=== PATIENT | male | born 1945 | race Caucasian/White ===

== ENCOUNTER → 2023-09-01 10:00 | Outpatient (REF) | payer OTHER, SELFPAY | LOC: RAD 10:00 | PROVIDERS: ATTENDING PHYSICIAN Surgery Vascular Surgery | DX: I73.9 Peripheral vascular disease, unspecified (principal); I65.23 Occlusion and stenosis of bilateral carotid arteries | CPT/HCPCS: 93880; 93922; 93925 ==

== ENCOUNTER → 2023-10-30 09:38 | Outpatient (REF) | payer OTHER, SELFPAY | LOC: DHCBS HW 09:38 | PROVIDERS: ATTENDING PHYSICIAN Nuclear Medicine Nuclear Cardiology; FAMILY PHYSICIAN Family Medicine | DX: I25.10 Atherosclerotic heart disease of native coronary artery without angina pectoris (principal) | CPT/HCPCS: 93306 ==

== ENCOUNTER → 2024-03-25 08:15 | Outpatient (REF) | payer OTHER, SELFPAY | LOC: RAD 08:15 | PROVIDERS: ATTENDING PHYSICIAN Surgery Vascular Surgery; FAMILY PHYSICIAN Family Medicine; REFERRING PHYSICIAN Nuclear Medicine Nuclear Cardiology | DX: I65.29 Occlusion and stenosis of unspecified carotid artery (principal); I73.9 Peripheral vascular disease, unspecified | CPT/HCPCS: 93880; 93922 ==

== ENCOUNTER 2024-05-14 08:09 | Outpatient (RCR) | payer OTHER, SELFPAY ==
[2024-05-14 08:15] VITALS: BP 113/38
[2024-05-14] MEDS: SODIUM BICARBONATE 1150 MEQ IV (08:35)
== END 2024-06-05 23:59 | disposition home or self-care (01) ==
LOC: OID 08:09
PROVIDERS: ATTENDING PHYSICIAN Surgery Vascular Surgery; FAMILY PHYSICIAN Family Medicine
DX: I73.9 Peripheral vascular disease, unspecified (principal); I65.23 Occlusion and stenosis of bilateral carotid arteries
CPT/HCPCS: 75635; 96365; 96366; Q9967

== ENCOUNTER → 2024-06-28 08:20 | Outpatient (REF) | payer OTHER, SELFPAY | LOC: DHCBC/DCA 08:20 | PROVIDERS: ATTENDING PHYSICIAN Nuclear Medicine Nuclear Cardiology; FAMILY PHYSICIAN Family Medicine | DX: I25.10 Atherosclerotic heart disease of native coronary artery without angina pectoris (principal); I10 Essential (primary) hypertension | CPT/HCPCS: 78452; 93017; A9500; J2785 ==

== ENCOUNTER 2024-07-13 09:56 | Inpatient (IN) | payer OTHER, SELFPAY ==
[2024-07-09 10:30] VITALS: BMI 22.0
[2024-07-09 11:04] LABS: % Basophils 0.2 % (0-2); % Eosinophils 4.1 % (0-6); % Immature Granulocytes 0.5 % (0-0.5); % Lymphocytes 10.3 % (20.5-51.1); % Monocytes 4.9 % (1.7-9.3); Absolute Eosinophils 0.3 10^3/uL (0-0.7); Absolute Lymphocytes 0.6 10^3/uL (1.2-3.4); Absolute Monocytes 0.3 10^3/uL (0.1-0.6); Absolute Neutrophils 4.9 10^3/uL (1.4-6.5); Hematocrit 28.9 % (39.0-52.0); Hemoglobin 9.8 g/dL (13.0-18.0); Mean Corp Hgb Conc. 33.9 g/dL (33.0-37.0); Mean Corpuscular Hgb 30.9 pg (27.0-31.0); Mean Corpuscular Volume 91.2 fL (80.0-94.0); Mean Platelet Volume 9.7 fL (7.4-10.4); Nucleated Red Blood Cells % 0 % (-); Platelet Count 151 10^3/uL (130-400); Red Blood Cell Count 3.17 10^6/uL (4.70-6.10); Red Cell Dist. Width 13.1 % (11.5-14.5); White Blood Cell Count 6.1 10^3/uL (4.8-10.8)
[2024-07-09 11:09] LABS: APTT 28.2 Sec (23.4-35.0); INR 1.03; PT 13.8 Sec (11.4-14.6)
[2024-07-09 11:55] LABS: Blood Urea Nitrogen 67 mg/dl (9-20); Calcium 9.5 mg/dl (8.4-10.2); Carbon Dioxide 24 mmol/L (22-30); Chloride 105 mmol/L (98-107); Estimated Creatinine Clearance 23 ml/min; Glucose 149 mg/dl (70-99); Potassium 4.8 mmol/L (3.5-5.1); Sodium 142 mmol/L (135-145)
--- NOTE | 2024-07-12 10:37 | PTCARENOTE ---
Erin in office made aware of BUN 67, Cr 2.5, GFR 25.5.
[2024-07-13] VITALS (10 sets, daily range): BP systolic 48–148; BP diastolic 27–56; BMI 22.0
--- NOTE | 2024-07-13 10:21 | W.SUR.PREOP ---
Pre-Operative Surgical Note
-
I have examined this patient prior to the performance of the scheduled procedure.
The patient's condition is unchanged from the time of the current History and
Physical and the patient is able to undergo the scheduled procedure.
[2024-07-13 11:04] LABS: Glucose - Point of Care 229 mg/dl (70-99)
[2024-07-13] MEDS: PERIDEX 0.12% ORAL RINSE 15 ML PO (11:07)
[2024-07-13] MEDS: BACTROBAN NASAL 1 GRAM NASAL (11:07)
[2024-07-13 13:24] LABS: Glycohemoglobin (HgbA1c) 6.5 % (4.0-5.6)
[2024-07-13 15:33] LABS: ACT-LR - POC 313 Seconds (116-155)
[2024-07-13 16:31] LABS: ACT-LR - POC 231 Seconds (116-155)
[2024-07-13 17:06] LABS: ACT-LR - POC 137 Seconds (116-155)
[2024-07-13 18:43] LABS: B.E. -7.9 mmol/L; HCO3 18.4 mmol/L (21-28); O2 Saturation % 99.1 % (94-98); O2 Therapy VENTILATOR 50%; PCO2 40 mmHg (35-48); PO2 249 mmHg (83-108); pH 7.27 (7.35-7.45)
[2024-07-13 18:59] LABS: Hemoglobin 8.7 g/dL (13.0-18.0)
[2024-07-13 19:07] LABS: Glucose - Point of Care 212 mg/dl (70-99)
[2024-07-13 19:32] LABS: ACT-LR - POC 234 Seconds (116-155)
[2024-07-13 20:03] LABS: B.E. - POC -8.9 mmol/L; Glucose - POC 311 mg/dl (70-99); HCO3 - POC 18 mmol/L (21-28); Hematocrit - POC 22 % PCV (42-52); Hemodilution- POC Yes; Hemoglobin Calculated - POC 7.6; Ionized Calcium - POC 1.29 mmol/L (1.15-1.33); Lactate - POC 2.35 mmol/L (0.36-0.75); PCO2 - POC 42 mmHg (35-48); PO2 - POC 452 mmHg (83-108); Potassium - POC 5.3 mmol/L (3.5-5.1); Sodium - POC 144 mmol/L (136-145); Specimen Type - POC Arterial; pH - POC 7.23 (7.35-7.45)
[2024-07-13 21:06] LABS: Glucose - Point of Care 280 mg/dl (70-99)
[2024-07-13] MEDS: LEVOPHED 250 IV (21:30)
[2024-07-13] MEDS: SUBLIMAZE 50 MCG IV ×2 (21:48→22:31)
[2024-07-13] MEDS: DIPRIVAN 100 IV (21:49)
[2024-07-13] MEDS: NSS 1000 IV (21:50)
--- NOTE | 2024-07-13 21:50 | PTCARENOTE ---
Received pt from vascular OR. Pt moving all extremities, neurovascular checks per protocol (see worklist). Received pt with absent b/l pedal pulses, bounding L femoral. V paced on the monitor. ETT #8 23 @ lip. AC 16/500/50%/5, O2 sat 99%, lungs
diminished. Fam in place for critical I&O. Left CHIO in place. Received pt on 4 mcg of levo, titrated per protocol (see worklist). Dr Otto @ bedside, states he wants MAP 55-60. Fent and prop gtt started (see worklist). CHG bath provided. Safe
environment maintained.
[2024-07-13] MEDS: SUBLIMAZE 100 IV (21:58)
--- NOTE | 2024-07-13 22:01 | OR.RPT ---
Operative Report
Operative Report
Date of Operation: 07/13/2024
Pre Op Diagnosis:
1. Calcified aortoiliac occlusive disease
2. Diffusely calcified left lower extremity peripheral arterial occlusive disease
3. Chronic limb threatening ischemia with rest pain left foot
Post Op Diagnosis:
1. Calcified aortoiliac occlusive disease
2. Diffusely calcified left lower extremity peripheral arterial occlusive disease
3. Chronic limb threatening ischemia with rest pain left foot
Procedure:
1. Left common femoral endarterectomy and profunda femoral artery endarterectomy with patch angioplasty using bovine pericardium
2. Diagnostic left lower extremity arteriogram
3. Introduce wire/catheter into aorta from right common femoral artery access
4. Intravascular lithotripsy to right common iliac artery occlusion using shockwave javelin catheter and 9 mm L6 balloon
5. Balloon angioplasty to right common iliac artery (4 mm, 5 mm, 6 mm angioplasty balloons)
6. Ultrasound-guided percutaneous access to the right common femoral artery
Surgeon: Siva Otto III, MD
Electronics Engineer: Corey Sam MD PGY1
Anesthesia: General
Complications: Severe hypertension
Estimated Blood Loss: 250 cc
History and Indications for Procedure: 78-year-old male with severe diffuse calcified peripheral arterial occlusive disease. He developed ischemic rest pain in the left foot consistent with chronic limb threatening ischemia. Cross-sectional
imaging demonstrated severe calcified occlusive disease in the left common femoral artery, left profunda femoral artery left superficial femoral artery and popliteal artery. He was taken to the operating room for revascularization to address his
chronic limb threatening ischemia.
Procedure in Detail: Mr. Capellan was correctly identified and placed supine on the operating table. After adequate induction of anesthesia his abdomen, pelvis, bilateral groins and left thigh were prepped and draped in the usual sterile fashion.
He received preoperative antibiotics. A timeout procedure was performed with the nursing and anesthesia staff confirming the patient's identity as well as the nature and laterality of the procedure.
A vertical incision was made in the left groin. Electrocautery and sharp dissection were used to expose the left common femoral artery. This was densely calcified. I continued dissection underneath the inguinal ligament and expose the distal left
external iliac artery. This was soft and able to be clamped. I obtained proximal control on the distal left external iliac artery under the inguinal ligament with a vessel loop. I continued distal dissection and expose the remainder of the common
femoral artery, femoral bifurcation, proximal profunda femoral artery and proximal superficial femoral artery. The profunda femoral artery dissection and exposure was carried down to the first branch point and the artery was soft at this location.
The profunda femoral artery branches distally were individually controlled with vessel loops. The proximal superficial femoral artery was densely calcified and did not have a palpable pulse. This was encircled with a vessel loop.
Systemic heparin was administered. A Derra clamp was applied proximally to the distal external iliac artery. The distal vessel loops were secured. I made an arteriotomy on the common femoral artery and extended this proximally and distally with
Dsouza scissors. The arteriotomy was carried well onto the profunda femoral artery beyond the calcified occlusive disease at its origin and in the proximal artery. The arteriotomy was carried proximally to the distal external iliac artery under the
inguinal ligament to an area free of disease. An endarterectomy was then performed in the standard fashion with a Tracy elevator. The calcified plaque feathered nicely on the profunda femoral artery. A slight distal intimal flap was tacked down
with a single 7-0 Prolene suture. The distal branches were allowed to backbleed and then flushed with heparinized saline solution. The endarterectomy continued proximally and I removed the plaque in its entirety. This was sent to pathology.
Additional plaque elements were removed from the distal external iliac artery using forceps. Following the endarterectomy the artery was irrigated with heparinized saline solution and any loose fronds of tissue and debris were removed. I then
brought onto the field a precut piece of bovine pericardium. This was sewn in place using a running 5-0 Prolene suture. Prior to the completion of the anastomosis the proximal clamp was temporarily released to allow forward bleeding and the distal
vessel loops were temporarily released to allow backbleeding. The area under the anastomosis was flushed with heparinized saline solution to remove any potential thrombus or debris. The anastomosis was completed.
At this point the vessel loops were released and the proximal clamp released. There was a very strong pulse palpable in the common femoral artery with release of the clamps. The strength of this pulse seemed extreme and did not correlate with the
measured arterial pressure from the radial A-line and the noninvasive cuff. There was significant diffuse needle hole bleeding which was unusual and was in line with the strong pulse but was palpable in the artery. I was able to obtain hemostasis
along the suture line with interrupted Prolene repair stitches, topical hemostatic agents and manual pressure. Pulses were palpable in the profunda femoral artery and distal branches. Robust Doppler signals were also audible in the distal profunda
femoral branches.
In order to better understand the blood pressure I placed an arterial line in the left common femoral artery. To do this I punctured the patch in a retrograde fashion with a micropuncture needle and upsized to the 4 [place] micro dilator and sheath
over the microwire. I connected this to the arterial line anesthesia provided and measured the blood pressure which was over 200 mmHg systolic. With this information as well as the radial A-line we were able to lower the blood pressure to a more
appropriate level.
I then performed a runoff arteriogram of the left lower extremity via the micro sheath in the left common femoral artery. The common femoral artery endarterectomy was widely patent. There was brisk runoff through a widely patent profunda femoral
artery with no stenosis identified. Sluggish flow was identified through the superficial femoral artery. Densely calcified plaque was identified in the superficial femoral artery and popliteal artery. The popliteal artery was occluded with
densely calcified plaque. There was distal reconstitution of the popliteal artery below the knee. Significant calcified plaque was identified in the tibioperoneal trunk causing a stenosis. Tibial runoff appeared to be through the anterior tibial
and posterior tibial arteries and these continued across the ankle and supplied the foot.
Following this I removed the micro sheath and repaired the arterial puncture site with interrupted 5-0 Prolene suture. Hemostasis was achieved at the site.
I was concerned about the ability to accurately monitor his blood pressure postoperatively in the ICU given the significant discrepancy between his central pressure and peripheral pressure. At this point I felt what might give us the best access
for central pressure measurement would be a right femoral arterial line but this would require intervention on his iliac disease. Using ultrasound guidance I accessed the right common femoral artery in a retrograde fashion with a micropuncture
needle. I then upsized to a 5 [place] sheath over a Bentson wire. I performed a retrograde arteriogram which demonstrated that the right common iliac artery was densely calcified and occluded. Using a Quickcross catheter and Glidewire I was able
to navigate through the right common iliac artery occlusion and into the aorta. We connected the quick cross to the arterial line set up and confirmed once again high systolic blood pressures relative to the radial A-line. I then placed a 7 [place]
sheath in the right groin.
We had significant difficulty passing balloons across the calcified right common iliac artery occlusion. I initially tried a 4 mm balloon on an 035 system which would not pass. I was able to exchange out for a [place] floppy tip 0.014 wire,
positioned this in the aorta and then passed a 4 mm angioplasty balloon over the system across the calcified iliac occlusion. The balloon was inflated to nominal pressure held in place for 2 minutes and then slowly deflated and removed over the
wire. I then attempted to perform a wire exchange in order to advance the 7 [place] sheath beyond the iliac occlusion for eventual balloon mounted stent placement but could not pass either the Quickcross catheter or CXI catheter completely across
the iliac and into the aorta. Over the 0.014 wire I then used a shockwave javelin catheter to perform intravascular lithotripsy to the heavily calcified right common iliac artery plaque in the hopes that calcium modification would allow for
additional device delivery. The javelin catheter was advanced under radiographic guidance to the level of the calcified occlusion. Lithotripsy pulses were delivered as the catheter was advanced retrograde across the calcified occlusion. This
maneuver was successful and I was able to advance the catheter through the iliac artery and into the abdominal aorta. Additional lithotripsy pulses were delivered to the calcified iliac occlusion. Following this the javelin catheter was removed
and I once again attempted to pass the Quickcross and CXI through the calcified occlusive disease but could not. I then exchanged out for a 0.018 wire. With some difficulty I was able to advance a 5 mm x 40 mm angioplasty balloon across the
calcified iliac lesion. This was inflated to nominal pressure and held in place for 2 minutes. Following this I advanced a 6 mm x 40 mm angioplasty balloon across the calcified iliac artery. In the desired location I inflated the balloon to
nominal pressure and held it in place for 2 minutes. The balloon was removed over the wire. Following the balloon angioplasty I then attempted to advance a shockwave 9 mm x 30 mm L6 catheter across the calcified iliac disease over the 0.018 wire.
Once again I was met with stiff resistance with advancement of this balloon. I advanced this as far as I could across the calcified disease. The balloon was inflated to 2 lulú pressure and lithotripsy pulses were delivered followed by angioplasty
at 4 lulú. After several cycles of lithotripsy and angioplasty I attempted to readvance the balloon hoping that with calcium modification I might be able to pass the balloon more proximally but this also failed. I then attempted a wire exchange
with the Quickcross catheter as far across the calcified iliac lesion as possible. I was able to readvance a floppy tip Amplatz wire into the abdominal aorta under fluoroscopic guidance. I then attempted to advance the 7 [place] sheath and dilator
over the Amplatz wire but could not advance this system across the iliac and into the aorta. Multiple attempts were made but ultimately failed. Given that I could not successfully advance a larger balloon platform or the 7 [place] sheath across the
iliac disease I did not feel I would be successful at passing a balloon mounted covered stent across this area either. At this point I abandoned additional attempts to intervene on the right common iliac artery occlusion. A completion arteriogram
demonstrated that there was some contrast flow through the right common iliac artery and a dissection was present, consistent with our attempts at endovascular intervention. No extravasation was identified. Flow was identified in the right external
iliac artery and internal iliac artery.
We made the decision to conclude the procedure at this point. Protamine was administered. The left groin wound was irrigated with saline solution. Hemostasis was achieved. A Klever drain was left in place and the wound cavity and brought out
through a separate stab incision at the skin. This was sewn in place at the skin level with a nylon suture. The wound was then closed in multiple layers and sterile dressings were applied.
The 7 [place] sheath was removed from the right femoral access. Direct manual pressure was held over the puncture site and hemostasis was achieved in the operating room. A sterile dressing was applied.
The patient was taken to the intensive care unit following the procedure.
Attestation: I was present and responsible for the entire procedure
Signed:
Siva Otto III, MD
[facility]
[phone] (cell)
[2024-07-13 22:04] LABS: B.E. -7.3 mmol/L; HCO3 17.8 mmol/L (21-28); O2 Saturation % 98.8 % (94-98); PCO2 33 mmHg (35-48); PO2 229 mmHg (83-108); pH 7.34 (7.35-7.45)
[2024-07-13 22:13] LABS: Hematocrit 19.2 % (39.0-52.0); Hemoglobin 6.7 g/dL (13.0-18.0); Mean Corp Hgb Conc. 34.9 g/dL (33.0-37.0); Mean Corpuscular Hgb 30.9 pg (27.0-31.0); Mean Corpuscular Volume 88.5 fL (80.0-94.0); Mean Platelet Volume 9.3 fL (7.4-10.4); Platelet Count 144 10^3/uL (130-400); Red Blood Cell Count 2.17 10^6/uL (4.70-6.10); Red Cell Dist. Width 13.7 % (11.5-14.5); White Blood Cell Count 24.5 10^3/uL (4.8-10.8)
[2024-07-13 22:17] LABS: Lactic Acid 3.6 mmol/L (0.7-2.0); Triglycerides 113 mg/dl (10-149)
[2024-07-13] MEDS: COLACE PO (22:23)
[2024-07-13] MEDS: LIPITOR PO (22:24)
[2024-07-13] MEDS: LOPRESSOR PO (22:24)
[2024-07-13 22:25] LABS: Blood Urea Nitrogen 59 mg/dl (9-20); Carbon Dioxide 15 mmol/L (22-30); Chloride 109 mmol/L (98-107); Estimated Creatinine Clearance 27 ml/min; Glucose 330 mg/dl (70-99); Potassium 5.3 mmol/L (3.5-5.1); Sodium 138 mmol/L (135-145); eGFR 31.43
--- NOTE | 2024-07-13 23:24 | PTCARENOTE ---
1 unit PRBCs hanging. 15 min VS check completed w/ no issues.
[2024-07-14] VITALS (21 sets, daily range): BP systolic 63–125; BP diastolic 39–66; BMI 21.8
[2024-07-14] MEDS: NOVOLIN R 8 UNITS IV (00:04)
[2024-07-14] MEDS: NOVOLIN R INSULIN INFUSION 100 IV ×2 (00:06→06:06)
[2024-07-14 00:13] LABS: Glucose - Point of Care 360 mg/dl (70-99)
[2024-07-14] MEDS: SUBLIMAZE 50 MCG IV ×3 (00:21→04:13)
[2024-07-14] MEDS: SODIUM BICARBONATE 1150 MEQ IV (00:30)
--- NOTE | 2024-07-14 00:45 | PTCARENOTE ---
Titrating levo, fent, prop per protocol (see worklist). Pt waking up, nodding head appropriately. NS IVF switched to Sodium Bicarb @ 125 ml/hr. Insulin gtt started for Glycemic protocol (see worklist).
[2024-07-14 01:09] LABS: Glucose - Point of Care 363 mg/dl (70-99)
[2024-07-14] MEDS: LEVOPHED 250 IV (01:28)
[2024-07-14 02:11] LABS: Glucose - Point of Care 379 mg/dl (70-99)
[2024-07-14 03:08] LABS: Glucose - Point of Care 371 mg/dl (70-99)
[2024-07-14 03:19] LABS: Hematocrit 25.6 % (39.0-52.0); Hemoglobin 8.9 g/dL (13.0-18.0); Mean Corp Hgb Conc. 34.8 g/dL (33.0-37.0); Mean Corpuscular Hgb 30.3 pg (27.0-31.0); Mean Corpuscular Volume 87.1 fL (80.0-94.0); Mean Platelet Volume 9.1 fL (7.4-10.4); Platelet Count 145 10^3/uL (130-400); Red Blood Cell Count 2.94 10^6/uL (4.70-6.10); White Blood Cell Count 24.2 10^3/uL (4.8-10.8)
[2024-07-14 03:23] LABS: APTT 26.6 Sec (23.4-35.0); INR 1.32; PT 16.7 Sec (11.4-14.6)
[2024-07-14 03:45] LABS: Blood Urea Nitrogen 61 mg/dl (9-20); Carbon Dioxide 17 mmol/L (22-30); Chloride 108 mmol/L (98-107); Estimated Creatinine Clearance 24 ml/min; Glucose 354 mg/dl (70-99); Potassium 4.5 mmol/L (3.5-5.1); Sodium 140 mmol/L (135-145); eGFR 28.18
[2024-07-14 04:02] LABS: Lactic Acid 4.4 mmol/L (0.7-2.0)
[2024-07-14] MEDS: NSS 250 IV (04:10)
--- NOTE | 2024-07-14 04:10 | PTCARENOTE ---
AM labs sent. Minimal urine output, ICU LPN RN [facility] notified, 250 ml bolus ordered (see MAR). Neurovascular checks per protocol (see worklist).
--- NOTE | 2024-07-14 04:11 | PTCARENOTE ---
Addendum entered by Heena Santana RN 07/14/24 04:42:
Additional 500 ml bolus ordered (see MAR). Glucose trending up with insulin gtt, levo gtt switch to NS.
Original Note:
AM labs sent. Minimal urine output, ICU ACUTE CARE CERTIFIED NURSING ASSISTANT Domo notified, 250 ml bolus ordered (see MAR). Neurovascular checks per protocol (see worklist). Systems reviewed.
[2024-07-14 04:16] LABS: Glucose - Point of Care 373 mg/dl (70-99)
[2024-07-14] MEDS: NSS 500 IV (04:39)
[2024-07-14 04:48] LABS: Urine Albumin 2+ (Neg - Trace); Urine Bilirubin Negative (Negative); Urine Character Slightly Cloudy (Clear); Urine Color Yellow; Urine Glucose 1+ (Negative); Urine Ketone Negative (Negative); Urine Leukocyte 1+ (Negative); Urine Nitrite Negative (Negative); Urine Occult Blood 4+ (Negative); Urine Specific Gravity 1.015 (<1.030); Urine Urobilinogen Negative (Neg - 1+)
[2024-07-14 05:05] LABS: B.E. -5.7 mmol/L; HCO3 19.2 mmol/L (21-28); O2 Saturation % 99.5 % (94-98); PCO2 34 mmHg (35-48); PO2 201 mmHg (83-108); pH 7.36 (7.35-7.45)
[2024-07-14 05:06] LABS: Glucose - Point of Care 297 mg/dl (70-99)
[2024-07-14 05:06] LABS: O2 Therapy 40%
[2024-07-14] MEDS: LEVOPHED 254 MG IV (05:15)
[2024-07-14 05:54] LABS: Urine Amorphous Seen; Urine Squamous Cell >30 /LPF (Few)
[2024-07-14 05:55] LABS: Urine Bacteria Many (Negative); Urine Mucus Moderate; Urine Red Blood Cell >100 /HPF (0-2); Urine White Cell >100 /HPF (0-5)
[2024-07-14 06:07] LABS: Glucose - Point of Care 216 mg/dl (70-99)
[2024-07-14 06:46] LABS: Glucose - Point of Care 150 mg/dl (70-99)
--- NOTE | 2024-07-14 07:16 | CON.INTV ---
Consultation
Consultation Request
Date/Time Consultation Requested: 07/14/24
Date/Time Consultation Performed: 07/14/24
Performing Provider: Fawad
Reason for Consultation: ICU
Medical History
-
History of Present Illness:
Patient is a 78-year-old male with previous history of hypertension, PAD, carotid disease, chronic kidney disease, CAD status post CABG presenting for elective vascular procedure. He has prior history of severe bilateral lower extremity arterial
disease with pain at rest in his left lower extremity. There is concern for chronic limb threatening ischemia. On review of his imaging he has notable arterial disease. It was also noted as an outpatient that patient has become forgetful and
having memory issues.
Underwent left common femoral endarterectomy and profunda femoral endarterectomy on 07/13/2024. He was notably hypotensive throughout the case however his blood pressure was not reliably obtained through his extremities due to his extensive chronic
occlusions. An A-line was placed intraoperatively, with ability to further titrate pressors appropriately. Postoperatively, he was maintained on the ventilator and transferred to ICU for further management of his pressor requirements.
Past Medical History
Past Medical History: Other (see list below)
Social History
Tobacco: Former Smoker
Alcohol: None
Drug: None
Family History
Family History: Reviewed & Not Pertinent
Allergies / Home Medications
Allergies
Allergy/AdvReac Type Severity Reaction Status Date / Time
Iodinated Contrast Media Allergy Unknown Verified 07/08/24 12:30
iodine Allergy Unknown Verified 07/08/24 12:30
Home Medications
�Medication �Instructions �Recorded �Confirmed �Last Taken �Type
aspirin 81 mg chewable tablet 81 mg PO DAILY Blood clot 02/02/22 07/13/24 07/13/24 08:30 History
prevention/tx
atorvastatin 80 mg tablet 80 mg PO HS High cholesterol 02/02/22 07/13/24 07/12/24 22:00 History
clopidogrel 75 mg tablet (Plavix) 75 mg PO DAILY Blood clot 02/02/22 07/13/24 07/13/24 08:30 History
prevention/tx
ezetimibe 10 mg tablet (Zetia) 10 mg PO DAILY High cholesterol 02/02/22 07/13/24 07/12/24 08:00 History
montelukast 10 mg tablet 10 mg PO DAILY Allergies 02/02/22 07/13/24 07/12/24 08:00 History
trazodone 50 mg tablet 50 mg PO HS Sleep 02/02/22 07/13/24 07/12/24 22:00 History
folic acid 0.8 mg capsule 800 mcg PO DAILY Supplement 02/27/22 07/13/24 07/12/24 08:00 History
tamsulosin 0.4 mg capsule 0.4 mg PO DAILY 04/30/22 07/13/24 07/12/24 08:00 History
semaglutide 1 mg/dose (4 mg/3 mL) 1 mg SC [place] Diabetes 07/14/22 07/13/24 07/11/24 08:30 History
subcutaneous pen injector (Ozempic)
torsemide 20 mg tablet 20 mg PO DAILY #30 tabs 07/21/22 07/13/24 07/12/24 08:00 Rx
diphenhydramine HCl 25 mg capsule 50 mg PO PRE OP 07/08/24 07/13/24 07/13/24 08:30 History
(Benadryl)
docusate sodium 100 mg capsule 100 mg PO BID 07/08/24 07/13/24 07/12/24 22:00 History
(Colace)
ergocalciferol (vitamin D2) 1,250 1,250 mcg PO QMONTH 07/08/24 07/13/24 07/12/24 08:00 History
mcg (50,000 unit) capsule (Vitamin
D2)
finasteride 5 mg tablet 5 mg PO DAILY 07/08/24 07/13/24 07/12/24 08:00 History
finerenone 10 mg tablet (Kerendia) 10 mg PO DAILY 07/08/24 07/13/24 07/12/24 08:00 History
lisinopril 5 mg tablet 5 mg PO DAILY 07/08/24 07/13/24 07/12/24 08:00 History
mecobalamin (vitamin B12) 1,000 1,000 mcg PO DAILY 07/08/24 07/13/24 07/12/24 08:00 History
mcg chewable tablet (B12 Active)
methylprednisolone 4 mg tablets in 32 mg PO PRE OP 07/08/24 07/13/24 07/13/24 08:30 History
a dose pack
metoprolol tartrate 25 mg tablet 12.5 mg PO BID 07/08/24 07/13/24 07/13/24 08:30 History
mineral oil-isopropyl myristat 1 applic topical BID 07/08/24 07/13/24 07/12/24 22:00 History
lotion
omega 1-gwp-vxs-fish oil 1,200 mg 1 cap PO DAILY 07/08/24 07/13/24 07/12/24 08:00 History
(144 mg-216 mg) capsule (Fish Oil)
potassium chloride 20 mEq 20 meq PO Q48H 07/08/24 07/13/24 07/12/24 08:00 History
tablet,extended
release(part/cryst) (Juanor-Shawn Mera)
Review of Systems
-
History Source: Patient
All other systems: Negative unless noted
Vitals / Labs / Diagnostic Testing
Vital Signs
Temp Pulse Resp BP Pulse Ox
99.8 F 75 16 80/57 100
07/14/24 03:27 07/14/24 06:30 07/14/24 06:30 07/14/24 06:00 07/14/24 06:30
Lab Data
07/14/24 03:05
07/14/24 03:05
Laboratory Results
07/13/24 07/13/24 07/14/24
18:35 21:56 03:05
PT 16.7 H
INR 1.32
APTT 26.6
pH 7.27 L 7.34 L
pCO2 40 33 L
pO2 249 H 229 H
HCO3 18.4 L 17.8 L
O2 Delivery Level Ventilator 50%
07/14/24
04:57
PT
INR
APTT
pH 7.36
pCO2 34 L
pO2 201 H
HCO3 19.2 L
O2 Delivery Level 40%
Diagnostic Testing:
Physical Exam
-
HEENT: Normocephalic, Anicteric and Moist Mucous Membranes
Cardiovascular: S1/S2 and Regular Rhythm
Respiratory: Clear, Non-Labored Respirations and Other (ETT)
GI: Soft, Non Distended and Non Tender
Neurology: Awake (with voice stim), No Motor Deficits and Other (sedated/intubated)
Skin: Warm, Dry and Good Color
General: Comfortable and Other (NAD)
Assessment
-
Patient is a 78-year-old male with previous history of hypertension, PAD, carotid disease, chronic kidney disease, CAD status post CABG presenting for elective vascular procedure. He has prior history of severe bilateral lower extremity arterial
disease with pain at rest in his left lower extremity. There is concern for chronic limb threatening ischemia. Underwent left common femoral endarterectomy and profunda femoral endarterectomy on 07/13/2024. He was notably hypotensive throughout the
case however his blood pressure was not reliably obtained through his extremities due to his extensive chronic occlusions. Postoperatively, he was maintained on the ventilator and transferred to ICU for further management of his pressor
requirements.
Extensive diffuse severe peripheral arterial disease status post left common femoral/profunda endarterectomies 07/13/2024
Hypotension in extremities due to b/l subclavian stenosis with claudication
Leukocytosis
Acute blood loss on chronic disease anemia, likely perioperative losses
Metabolic acidosis
SANA on CKD
Hyperglycemia on insulin drip
Lactic acidosis
Memory issues
Perioperative mechanical ventilation
Conditions present ORE TESTER
Status post R carotid endarterectomy 04/30/2022
History of hypertension
Hyperlipidemia
IDDM
BPH
JAQUELIN on BIPAP
Coronary artery disease with history of CABG (2015)
LAD stent in September 2021
PAD
Chronic kidney disease stage III
Nephrolithiasis
AAA
hiatal hernia
colon polyps
UTI
frozen shoulder x2 2011 2012
cataracts 2009
Plan
No current signs of metabolic encephalopathy or MS changes/following commands
Denies pain at this time.
Pain/sedation: fent/prop, weaning to off for SAT
RASS goals: 0
Hemodynamically unstable, requiring low dose pressors.
Requiring pressors: levo @6 titrating down
Cardiac history reviewed--Extensive PAD, CAD, HTN
Prior ECHO reviewed indicating preserved EF
Hold home meds until able to resume
Monitor on telemetry
Intubated perioperatively, will plan to SBT
Vent setting reviewed, no changes
Prior history of lung disease: none, was a former smoker
Supplemental O2 as indicated to maintain sats > 89%
CXR/CT reviewed indicating no active disease, repeat PRN
Extubate if passes SBT
NPO, resume diet when able post extubation
Table Games Dealer recommendations
Aspiration precautions, HOB > 30 degrees
Speech therapy eval can be considered if at elevated risk
GI prophylaxis if indicated for mechanical ventilation >48 hours, prior history of GERD, stress ulcer formation in the critically ill
SANA present, mild
CKD history
Void trials
Follow urine output, critical I/Os
Replete electrolytes as needed
No signs/symptoms suspicious for infectious etiology at this time
Observe off antibiotics for now
Follow fever trend, WBC count
CBC stable, anemia noted likely op related, resolved on repeat levels/possible false testing result
DVT prophylaxis as assessed based on risk, including mechanical SCDs
Can transfuse if indicated for Hb <7, plt < 10
No prior h/o thyroid disease
H/o diabetes, can continue on home meds, SS for coverage
HbA1c 6.5
We will follow
Diagnostic Data
Chest X-Ray: 07/13/24- No active cardiopulmonary disease.
The tip of the new endotracheal tube is in satisfactory position 4.5 cm above the ruddy
CT Scan: AP 05/14/24- 1. Heavily calcified arterial plaque bilaterally, which limits CTA evaluation of the patency of multiple arteries.
2. 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
3. Mesenteric arterial stenosis. 50-75% stenosis at the origin of the celiac axis. High-grade greater than 90% stenosis and possible focal occlusion near the origin of the SMA.
4. 1.7 cm left adrenal nodule, incompletely characterized on the current CT.
Echo: 10/30/23- 1. Mild concentric left ventricular hypertrophy with preserved systolic function, EF 55-60%. Mild myocardial speckling.
2. Mitral annular calcification, thickened mitral leaflets, mild mitral regurgitation and dilated left atrium
3. Borderline aortic stenosis, peak gradient 19 mmHg, aortic valve area 1.9 cm
2. No aortic regurgitation
4. Normal right heart with pacemaker wire seen, with normal pulmonary artery systolic pressure
The study is similar to July 2022. At that time mitral regurgitation was mild to moderate and the pulmonary artery systolic pressure was 45-50 mmHg. The patient will be called and told that heart muscle function is preserved and valves are
stable.
PFT's:
Reports and relevant images were personally reviewed.
-----
Critical care time 65 mins -- this includes review of history, physical exam, medications, hemodynamic/ventilator parameters, laboratory data, imaging and discussion with house staff, pharmacy, respiratory therapy, teletype technician, and nursing.
[2024-07-14] MEDS: DIPRIVAN 100 IV (07:36)
--- NOTE | 2024-07-14 07:45 | PTCARENOTE ---
Assumed care of patient. Pt rec'd sedated on ventilator. Responds to verbal stimuli. Follows simple commands. CARDOSO's but weak. Bilateral wrist restraints intact. Able to nod head appropriately to yes/no questions. S1 S2 reg and distant w/
vpacing on monitor. DP/PT's by doppler. Trace generalized edema. Heels elevated on pillows. #8 ETT 24cm right lip....current vent settings: 16/500/+5/40%...sats 98-100%. Lungs diminished throughout...coarse in bases. Occasional NPC. Abdomen
soft and nontender...hypo BS. Temp sensing verdugo draining yellow urine w/ sediment. Skin pale in color. Right femoral drsg dry and intact. Left femoral w/ CHIO and aquacell drsg...see intervention. VS documented...left radial betito..flushed and
zeroed. Multiple gtts infusing...see interventions. Safe environment confirmed. Will continue to monitor.
--- NOTE | 2024-07-14 07:56 | W.PN.UPDATE ---
Update Note
Progress Note Update
Seen and evaluated this a.m. Full progress note to follow (seen with WIND TURBINE PERFORMANCE ENGINEER Reyes). Patient remains intubated, sedated. Blood pressure difficult to ascertain exactly secondary to upper extremity occlusive disease. Operative note fully reviewed. On
exam/mean arterial pressures in the 50s (based on OR central catheter placement, arterial line mean pressures in the 50s likely correlates to systolic blood pressures centrally of 180-190). Abdomen is soft, nondistended, nontender. Left groin
dressing clean dry and intact. Easily palpable 2+ femoral pulse. Right groin flat, no hematoma. Dressing clean dry and intact. Feet warm with Doppler signals. Plan/postoperative day #1. Repeat labs this a.m. Hemoglobin had dropped and patient
received blood with adequate correction. Given persistent elevated lactate, repeat hemoglobin this morning and repeat lactate this morning. If hemoglobin significantly lower, recommend transfusion again, and would check CT scan abdomen pelvis to
rule out any retroperitoneal hematoma. However if hemoglobin relatively stable, may require fluid regardless to assist with urine output. Patient has chronic renal sufficiency and therefore would also ask nephrology to see the patient as this is
more complicated in terms of fluid management. Would obtain chest x-ray to make sure patient not appearing in pulmonary edema before challenging with additional fluid. Plan discussed with WIND TURBINE PERFORMANCE ENGINEER, plan discussed with nursing. Plan discussed with
discharge coordinator. Okay for extubation. Wean levo as tolerated. Keep in mind blood pressure by arterial line not correlating exactly to systemic blood pressure and may be approximately 100 systolic millimeters lower.
[2024-07-14] MEDS: VITAMIN B-12 PO (08:00)
[2024-07-14] MEDS: PLAVIX PO (08:00)
[2024-07-14] MEDS: FOLVITE PO (08:00)
[2024-07-14] MEDS: SINGULAIR PO (08:00)
[2024-07-14] MEDS: ZETIA PO (08:00)
[2024-07-14] MEDS: FLOMAX PO (08:00)
[2024-07-14] MEDS: LOW STRENGTH ASPIRIN PO (08:00)
[2024-07-14] MEDS: PROSCAR PO (08:00)
[2024-07-14] MEDS: DEMADEX PO (08:00)
[2024-07-14] MEDS: COLACE PO (08:00)
[2024-07-14] MEDS: LOPRESSOR PO ×2 (08:00→19:15)
--- NOTE | 2024-07-14 08:14 | W.PN.VS ---
Today's Communication / Plan
-
Seen and assessed with Dr. Diop
Assessment/Plan
-
POD 1 Left common femoral endarterectomy and profunda femoral artery endarterectomy with patch angioplasty using bovine pericardium
Introduce wire/catheter into aorta from right common femoral artery access
Intravascular lithotripsy to right common iliac artery occlusion using shockwave javelin catheter and 9 mm L6 balloon
Balloon angioplasty to right common iliac artery (4 mm, 5 mm, 6 mm angioplasty balloons)
Plan:
-CBC, BMP, lactic acid at 8 AM
-If hemoglobin lowers plan to transfuse again and check CT abdomen pelvis
-Chest x-ray this a.m.
-Nephrology consult
-Extubate per water safety teacher
-Wean levo as able
-MAPs goal: 45-55 (blood pressure by arterial line not correlating exactly to systemic blood pressure and may be approximately 100 systolic millimeters lower)
Subjective Data
-
Date of Service: July 14, 2024
Patient seen at bedside exam with Dr. Diop. Patient remains intubated and sedated. Patient does follow commands when asked.
Patient received 1 unit of blood overnight for hemoglobin 6.7. Hemoglobin rebounded to 8.9 this morning.
Lactic acid trending up. Glucose trending up with the addition of an insulin drip.
Surgical site remains soft, clean, dry, intact.
Objective Data
-
Vital Signs
Temp Pulse Resp BP Pulse Ox
99.4 F 75 16 80/57 100
07/14/24 07:30 07/14/24 06:30 07/14/24 06:30 07/14/24 06:00 07/14/24 06:30
Intake and Output
07/13/24 07/14/24 07/15/24
06:59 06:59 06:59
Intake Total 2827.9 / 2827.9
Output Total 892 / 892
Balance 1935.9 / 1934.
Intake:
IV fluids (Total) 2327.9 / 2327.9
Nss 1,000 ml @ 80 mls/hr IV . 240 / 240
[id number] ANGELICA Rx#:[id number]
Sterile Water For Injection 750 / 750
1000 ml 1,000 ml @ 125 mls/hr
IV .Q9H12M ANGELICA with Sodium
Bicarbonate 150 Meq Rx#:
[id number]
bolus 750 / 750
fent 42.5 / 42.5
insulin 93 / 93
levo 405.0 / 405.0
prop 47.4 / 47.4
Blood Products 250 / 250
Packed red blood cells 250 / 250
Blood Product Amount Infused ( 250 / 250
mL)
Packed Rbc Leukoreduced Unit 250 / 250
[id number]
Output:
Drain Output (Total) 50 / 50
Left Pelvis Mateo-Goetz 50 / 50
Urine, Otto 842 / 842
Calcium 8.0 mg/dl (8.4-10.2) L 07/14/24 03:05
Physical Exam
-
Intubated and sedated
Ventilated
No tachycardia
A-line and cuff correlate to about 100-125 lower than actual blood pressure due to bilateral subclavian occlusions
Aiming for MAP's 45-55 by A-line and cuff
Abdomen soft throughout, flat
Surgical sites clean, dry, intact, soft, flat
Bilateral feet warm, pink
+2 femoral pulse, + Doppler signals distally
[2024-07-14 08:15] LABS: Hematocrit 22.1 % (39.0-52.0); Hemoglobin 7.9 g/dL (13.0-18.0); Mean Corp Hgb Conc. 35.7 g/dL (33.0-37.0); Mean Corpuscular Hgb 30.5 pg (27.0-31.0); Mean Corpuscular Volume 85.3 fL (80.0-94.0); Mean Platelet Volume 9.5 fL (7.4-10.4); Platelet Count 123 10^3/uL (130-400); Red Blood Cell Count 2.59 10^6/uL (4.70-6.10); White Blood Cell Count 16.1 10^3/uL (4.8-10.8)
[2024-07-14 08:23] LABS: Glucose - Point of Care 178 mg/dl (70-99)
[2024-07-14 08:38] LABS: Lactic Acid 2.4 mmol/L (0.7-2.0)
[2024-07-14 08:39] LABS: Blood Urea Nitrogen 61 mg/dl (9-20); Calcium 7.6 mg/dl (8.4-10.2); Carbon Dioxide 24 mmol/L (22-30); Chloride 108 mmol/L (98-107); Estimated Creatinine Clearance 24 ml/min; Glucose 160 mg/dl (70-99); Sodium 141 mmol/L (135-145); eGFR 28.18
--- NOTE | 2024-07-14 09:15 | W.PN.UPDATE ---
Update Note
Progress Note Update
Slight drop in morning hemoglobin to 7.9.
Plan to transfuse 1 unit packed red blood cells
Ordered CT abdomen pelvis noncontrast to rule out RP bleed
Discussed with team
[2024-07-14 09:21] LABS: Glucose - Point of Care 123 mg/dl (70-99)
[2024-07-14] MEDS: HEPARIN 5000 UNITS SC ×2 (09:27→19:15)
--- NOTE | 2024-07-14 10:36 | W.PN.ANS.POP ---
Anesthesia Post Operative
- Anesthesia Post Op Note
Vital Signs Stable-See Nursing Note: Yes
Adequate Pain Control: Yes
Change in Mental Status: No
Current Postoperative Nausea & Vomiting: No
Anesthesia Complications: No
General Anesthetic Recall: No
Unplanned Admission: No
Post Op Hydration Adequate: Yes
- -
Pt still intubated, currently weaning for possible extubation. Katina mclaughlin pt stable as per MULTIFOCAL BUTTON GENERATOR.
[2024-07-14 10:38] LABS: Urine Albumin 1+ (Neg - Trace); Urine Bilirubin Negative (Negative); Urine Character Clear (Clear); Urine Color Yellow; Urine Glucose Negative (Negative); Urine Ketone Negative (Negative); Urine Leukocyte 1+ (Negative); Urine Nitrite Negative (Negative); Urine Occult Blood 4+ (Negative); Urine Specific Gravity 1.015 (<1.030); Urine Urobilinogen Negative (Neg - 1+)
--- NOTE | 2024-07-14 10:52 | W.CON.NEPH ---
Consultation
-
Date/Time Consultation Requested: 07/14/24 8195
Date/Time Consultation Performed: 07/14/24 1055
Requesting Provider: Ld Teague
Performing Provider: Jackie Tipton
Reason for Consultation: CKD
Medical History
-
Chief Complaint: PAD
History of Present Illness:
78-year-old male with previous history of hypertension on lisinopril, low-dose of metoprolol, PAD on Plavix and aspirin, statin, chronic kidney disease stage IV last creatinine 1.8 in October 2023, possible diabetic nephropathy on Kerendia, DM On
Ozempic CAD status post CABG, stent electively he presented to the hospital yesterday for left femoral endarterectomy for chr CLI. During the procedure patient noted to have low blood pressures and started on the pressors however his core
pressures were elevated, the suspicion that he has significant burden of vascular disease in the upper extremities and difficult to get accurate readings. Postoperatively, he was maintained on the ventilator. His cr was at 2.5 pre op and post op it
is at 2.3, Received IV fluids over 2lit. He is nonoliguric with Otto catheter. His afebrile, hemoglobin low at 7.9 after transfusion.History is limited since patient is intubated. No noted fever.
Past Medical History
Coronary artery disease status post CABG
LAD stent in 2021:
Diabetes mellitus
CKD4
History of AAA
BPH
Nephrolithiasis
Hiatal hernia
Colon polyps
Peripheral vascular disease
Hypertension
JAQUELIN
Past Surgical History: Other (CABG, CAD stent, Cataract, frozen shoulder surgery)
Social History
Tobacco: Former Smoker
Alcohol: None
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
Family History
Family History: Not Pertinent
Allergies / Home Medications
Allergy/AdvReac Type Severity Reaction Status Date / Time
Iodinated Contrast Media Allergy Unknown Verified 07/08/24 12:30
iodine Allergy Unknown Verified 07/08/24 12:30
�Medication �Instructions �Recorded �Confirmed �Type
aspirin 81 mg chewable tablet 81 mg PO DAILY Blood clot 02/02/22 07/13/24 History
prevention/tx
atorvastatin 80 mg tablet 80 mg PO HS High cholesterol 02/02/22 07/13/24 History
clopidogrel 75 mg tablet (Plavix) 75 mg PO DAILY Blood clot 02/02/22 07/13/24 History
prevention/tx
ezetimibe 10 mg tablet (Zetia) 10 mg PO DAILY High cholesterol 02/02/22 07/13/24 History
montelukast 10 mg tablet 10 mg PO DAILY Allergies 02/02/22 07/13/24 History
trazodone 50 mg tablet 50 mg PO HS Sleep 02/02/22 07/13/24 History
folic acid 0.8 mg capsule 800 mcg PO DAILY Supplement 02/27/22 07/13/24 History
tamsulosin 0.4 mg capsule 0.4 mg PO DAILY 04/30/22 07/13/24 History
semaglutide 1 mg/dose (4 mg/3 mL) 1 mg SC [place] Diabetes 07/14/22 07/13/24 History
subcutaneous pen injector (Ozempic)
torsemide 20 mg tablet 20 mg PO DAILY #30 tabs 07/21/22 07/13/24 Rx
diphenhydramine HCl 25 mg capsule 50 mg PO PRE OP 07/08/24 07/13/24 History
(Benadryl)
docusate sodium 100 mg capsule 100 mg PO BID 07/08/24 07/13/24 History
(Colace)
ergocalciferol (vitamin D2) 1,250 1,250 mcg PO QMONTH 07/08/24 07/13/24 History
mcg (50,000 unit) capsule (Vitamin
D2)
finasteride 5 mg tablet 5 mg PO DAILY 07/08/24 07/13/24 History
finerenone 10 mg tablet (Kerendia) 10 mg PO DAILY 07/08/24 07/13/24 History
lisinopril 5 mg tablet 5 mg PO DAILY 07/08/24 07/13/24 History
mecobalamin (vitamin B12) 1,000 1,000 mcg PO DAILY 07/08/24 07/13/24 History
mcg chewable tablet (B12 Active)
methylprednisolone 4 mg tablets in 32 mg PO PRE OP 07/08/24 07/13/24 History
a dose pack
metoprolol tartrate 25 mg tablet 12.5 mg PO BID 07/08/24 07/13/24 History
mineral oil-isopropyl myristat 1 applic topical BID 07/08/24 07/13/24 History
lotion
omega 6-mym-rlm-fish oil 1,200 mg 1 cap PO DAILY 07/08/24 07/13/24 History
(144 mg-216 mg) capsule (Fish Oil)
potassium chloride 20 mEq 20 meq PO Q48H 07/08/24 07/13/24 History
tablet,extended
release(part/cryst) (Klor-Con M)
Review of Systems
-
All complete 12 point review of systematic inquiry and found negative other than stated in HPI
Physical Exam
Vital Signs
Vital Signs
Temp Pulse Resp BP Pulse Ox
99.4 F 54 12 80/57 100
07/14/24 07:30 07/14/24 10:26 07/14/24 10:26 07/14/24 06:00 07/14/24 10:26
Lab Results
WBC 16.1 10^3/uL (4.8-10.8) H 07/14/24 08:07
RBC 2.59 10^6/uL (4.70-6.10) L 07/14/24 08:07
Hgb 7.9 g/dL (13.0-18.0) L 07/14/24 08:07
Hct 22.1 % (39.0-52.0) L 07/14/24 08:07
Plt Count 123 10^3/uL (130-400) L 07/14/24 08:07
Sodium 141 mmol/L (135-145) 07/14/24 08:07
Potassium 4.0 mmol/L (3.5-5.1) 07/14/24 08:07
Chloride 108 mmol/L (98-107) H 07/14/24 08:07
Carbon Dioxide 24 mmol/L (22-30) 07/14/24 08:07
BUN 61 mg/dl (9-20) H 07/14/24 08:07
Creatinine 2.3 mg/dL (0.7-1.3) H 07/14/24 08:07
eGFR 28.18 07/14/24 08:07
Glucose 160 mg/dl (70-99) H 07/14/24 08:07
Calcium 7.6 mg/dl (8.4-10.2) L 07/14/24 08:07
CXR :
IMPRESSION:
No acute disease of the chest.
Physical Exam
General: Awake, Alert, No Distress and Nontoxic
HEENT: EOMI, Anicteric and Facial Symmetry
Respiratory: Clear ( Anteriorly) and Other ( intubated)
Cardiac: S1/S2 and Regular Rate/Rhythm
Breast: Deferred by me
Abdomen: Soft, Nontender and Nondistended
Musculoskeletal: No Edema
Skin: No Rash
Neuro: Nonfocal/Grossly Intact
Psych: Appropriate
Data Reviewed
-
Radiology: Report Reviewed by me, Discussed with Nurse and Discussed with Patient
Labs: Labs Reviewed by me, Discussed with Nurse and Discussed with Patient
Assessment/Plan
-
IMP:
Darell with CKD 4-last cr 1.8 in October 2023
Mild metabolic acidosis- [place]
Mild hyperkalemia resolved
Extensive diffuse severe peripheral arterial disease status post left common femoral/profunda endarterectomies 07/13/2024
Hypotension in extremities due to b/l subclavian stenosis with claudication
Leukocytosis
Acute blood loss on chronic disease anemia
DM with a macrovascular complications, nephropathy
Perioperative mechanical ventilation
h/o Status post R carotid endarterectomy 04/30/2022
History of hypertension
Hyperlipidemia
BPH
JAQUELIN on BIPAP
Coronary artery disease with history of CABG (2015)
LAD stent in September 2021
Nephrolithiasis
AAA
hiatal hernia
PLan:
A/w elective left femoral endarterectomy on 07/13
Hypertension difficult to accurately have readings in the upper extremities with the severe PAD
Agree with the MAP 40-45 as set by vascular, wean pressors as able
[id number] at 2.3, monitor urine output with a Otto catheter.
Okay for gentle hydration if patient is nothing by mouth after extubation
Hold kerendia, ACEI, and avoid nephrotoxins
Metabolic acidosis improving and potassium also normalized mainly correcting hyperglycemia
No emergent indication of dialysis
Monitor hemoglobin, when necessary transfusions, for ct with out contrast
Discussed with the nursing
CC time spent 31min
[2024-07-14 10:56] LABS: Urine Granular Cast 0-2 /LPF (0); Urine Hyaline Cast 0-2 /LPF (0-2); Urine Mucus Few
[2024-07-14 10:57] LABS: Urine Bacteria Few (Negative)
[2024-07-14 10:58] LABS: Urine Red Blood Cell 26-30 /HPF (0-2)
[2024-07-14 10:59] LABS: Urine White Cell 21-25 /HPF (0-5)
--- NOTE | 2024-07-14 11:06 | PTCARENOTE ---
Akil updated via telephone...all questions answered.
[2024-07-14] MEDS: DEXTROSE 50% SYRINGE 12.5 GRAMS IV (11:14)
[2024-07-14 11:20] LABS: Glucose - Point of Care 67 mg/dl (70-99)
[2024-07-14 11:49] LABS: Glucose - Point of Care 122 mg/dl (70-99)
--- NOTE | 2024-07-14 12:00 | PTCARENOTE ---
Pt extubated to 4L N/[place]..sats 98%. Levo/prop/fent/insulin/bicarb gtts off per specific protocols. Restraints removed. PC for thick clear/yellow secretions...suctioned w/ yankauer. Voice mildly raspy...A&Ox3....pleasant. Call [place] within reach.
Will continue to monitor.
--- NOTE | 2024-07-14 12:44 | CM ---
CM following re: discharge planning.
Discussed in Rounds, reviewed pt's chart, met with pt and pt's grandson at bedside.
Pt is a 78 year old male, admitted with primary dx of POD 1 Left common femoral endarterectomy and profunda femoral artery endarterectomy. Intubated yesterday, extubated this morning. Pt reports he is doing well.
Pt reports he has been living in an independent apartment at [facility] [place] for the past 6 years, has a son who livers in [place], juanita Stringer lives locally and helps as needed. Pt reports he does not use any mobile devices,
had [facility] in the past. Per pt, [facility] provides meals and managing medications. Pt expressed his desire to return back to his living arrangements at [facility] at [facility]. Grandson stated he will transport
his grandfather at discharge.
PT and OT will evaluate the pt to determine a level of care at discharge.
PCP: Kavon Arroyo
Pharmacy: [facility] pharmacy
D/C plan: return back to his independent apartment at [facility] in [place]. Grandson to transport.
CM will follow with discharge plan updates as hospitalization progresses
[2024-07-14 12:45] LABS: Glucose - Point of Care 151 mg/dl (70-99)
[2024-07-14] MEDS: NOVOLOG FLEXPEN 1 UNITS SC (13:50)
[2024-07-14 13:56] LABS: Glucose - Point of Care 192 mg/dl (70-99)
--- NOTE | 2024-07-14 15:35 | PN.DE.MGMTRT ---
Insulin Management
- -
07/14/2024 Diabetes Management Consult
Patient admitted 07/13 for Vascular procedure. PMH CAD, CABG 2015, LAD stent 2021, diabetes, CKD III, AAA, BPH, nephrolithiasis, UTI, PAD, PVD, HTN. Prior to admission was taking Ozempic 1 mg on Friday. He did take his Ozempic /. A1C on
admission 6.5%, cr 2.3, eGFR 28.18.
Patient was on glycemic protocol for glucose 371. Glucose trended down to 67, dextrose administered, glucose 192. Will not restart glycemic protocol will add corrective insulin Q6 hours and HS lantus 10 units - HOLD if glucose less than 150 at HS.
Discussed with nurse.
Will follow.
Diabetes History
- -
Type of Diabetes: 2
Pre-Admission Diabetes Regimen
07/13/24 07/13/24 07/13/24
16:36 21:36 21:56
Creatinine Cancelled Cancelled 2.1 H
07/14/24 07/14/24
03:05 08:07
Creatinine 2.3 H 2.3 H
Lab Results
Hemoglobin A1c 6.5 % (4.0-5.6) H 07/13/24 11:27
Insulin Pump Settings
IP Diabetes Regimen
07/13/24 07/13/24 07/13/24
16:36 16:41 20:54
Glucose Cancelled
POC Glucose 212 H 280 H
07/13/24 07/13/24 07/14/24
21:36 21:56 00:01
Glucose Cancelled 330 H
POC Glucose 360 H
07/14/24 07/14/24 07/14/24
00:57 02:00 02:57
Glucose
POC Glucose 363 H 379 H 371 H
07/14/24 07/14/24 07/14/24
03:05 04:04 04:54
Glucose 354 H
POC Glucose 373 H 297 H
07/14/24 07/14/24 07/14/24
05:55 06:34 08:07
Glucose 160 H
POC Glucose 216 H 150 H 178 H
07/14/24 07/14/24 07/14/24
09:08 11:09 11:37
Glucose
POC Glucose 123 H 67 L 122 H
07/14/24 07/14/24
12:33 13:41
Glucose
POC Glucose 151 H 192 H
Patient Education
--- NOTE | 2024-07-14 16:00 | PTCARENOTE ---
Pt on 2L N/C...sats 100%. Occasional forgetful to having a verdugo catheter...easily reoriented. No major changes in physical assessment. Ice chips provided w/o issue. VS documented. Call washington within reach.
[2024-07-14 17:07] LABS: Lactic Acid 0.7 mmol/L (0.7-2.0)
[2024-07-14] MEDS: NOVOLOG FLEXPEN-MODERATE RESISTANCE 3 UNITS SC (17:35)
[2024-07-14 17:49] LABS: Glucose - Point of Care 231 mg/dl (70-99)
[2024-07-14] MEDS: COLACE 100 MG PO (19:16)
[2024-07-14] MEDS: LOPRESSOR 12.5 MG PO (19:17)
[2024-07-14 19:22] LABS: Glucose - Point of Care 178 mg/dl (70-99)
[2024-07-14] MEDS: LANTUS 0.17 UNITS SC (19:26)
--- NOTE | 2024-07-14 19:52 | PTCARENOTE ---
Received pt from previous RN. Pt is AAOx3, forgetful @ times, neurovascular checks per protocol (see worklist). 100% vpaced on the monitor, doppler DP and PT pulses, MAP goal 45-55 (see vitals). Pt on 2L NC O2 sat 100%, lungs diminished. Otto in
place. L CHIO in place, dressing intact. L femoral dressing intact. A line zeroed and flushed. Pt is laying in bed with call washington in reach. Safe environment maintained.
[2024-07-14] MEDS: LIPITOR 80 MG PO (21:00)
[2024-07-14] MEDS: DESYREL 50 MG PO (21:00)
[2024-07-14 21:05] LABS: Glucose - Point of Care 196 mg/dl (70-99)
[2024-07-14 21:07] LABS: Hemoglobin 8.7 g/dL (13.0-18.0)
--- NOTE | 2024-07-14 23:44 | PTCARENOTE ---
Systems reviewed, no new changes in assessment. Neurovascular checks per protocol. Otto care and hygiene provided. Safe environment maintained.
[2024-07-15] VITALS (25 sets, daily range): BP systolic 65–143; BP diastolic 47–86; PULSE 65–78; O2SAT 98; BMI 22.4
[2024-07-15] MEDS: NOVOLOG FLEXPEN-HIGH RESISTANCE 1 UNITS SC ×2 (00:05→06:09)
[2024-07-15 00:19] LABS: Glucose - Point of Care 113 mg/dl (70-99)
--- NOTE | 2024-07-15 03:24 | PTCARENOTE ---
AM labs sent. Systems reviewed, no new changes in assessment. Pt on RA O2 sat 97%. Neurovascular checks done per protocol. Safe environment maintained.
[2024-07-15 04:09] LABS: Blood Urea Nitrogen 65 mg/dl (9-20); Calcium 7.5 mg/dl (8.4-10.2); Carbon Dioxide 26 mmol/L (22-30); Chloride 108 mmol/L (98-107); Estimated Creatinine Clearance 23 ml/min; Glucose 135 mg/dl (70-99); Magnesium 2.3 mg/dl (1.6-2.3); Potassium 4.2 mmol/L (3.5-5.1); Sodium 141 mmol/L (135-145)
[2024-07-15 04:33] LABS: Hematocrit 21.9 % (39.0-52.0); Hemoglobin 7.8 g/dL (13.0-18.0); Mean Corp Hgb Conc. 35.6 g/dL (33.0-37.0); Mean Corpuscular Hgb 31.7 pg (27.0-31.0); Red Blood Cell Count 2.46 10^6/uL (4.70-6.10); Red Cell Dist. Width 14.6 % (11.5-14.5)
[2024-07-15 06:21] LABS: Glucose - Point of Care 128 mg/dl (70-99)
[2024-07-15 06:23] LABS: Mean Platelet Volume 9.9 fL (7.4-10.4); Platelet Count 61 10^3/uL (130-400)
--- NOTE | 2024-07-15 07:16 | W.PN.INTV ---
Today's Communication / Plan
Recommendations
Doing well post extubation, off pressors
Can d/c A line
Now off insulin gtt, adjustments on SQ regiment as needed, followed by DM PIT SLAGMAN
Diet advancement
OOB, PT/OT
Transfer to tele per team, we will sign off upon transfer
Assessment
-
Patient is a 78-year-old male with previous history of hypertension, PAD, carotid disease, chronic kidney disease, CAD status post CABG presenting for elective vascular procedure. He has prior history of severe bilateral lower extremity arterial
disease with pain at rest in his left lower extremity. There is concern for chronic limb threatening ischemia. Underwent left common femoral endarterectomy and profunda femoral endarterectomy on 07/13/2024. He was notably hypotensive throughout the
case however his blood pressure was not reliably obtained through his extremities due to his extensive chronic occlusions. Postoperatively, he was maintained on the ventilator and transferred to ICU for further management of his pressor
requirements.
Extensive diffuse severe peripheral arterial disease status post left common femoral/profunda endarterectomies 07/13/2024
Hypotension in extremities due to b/l subclavian stenosis with claudication
Leukocytosis
Acute blood loss on chronic disease anemia, likely perioperative losses
Metabolic acidosis
SANA on CKD
Hyperglycemia on insulin drip
Lactic acidosis
Memory issues
Perioperative mechanical ventilation
Conditions present THREAD SEPARATOR
Status post R carotid endarterectomy 04/30/2022
History of hypertension
Hyperlipidemia
IDDM
BPH
JAQUELIN on BIPAP
Coronary artery disease with history of CABG (2015)
LAD stent in September 2021
PAD
Chronic kidney disease stage III
Nephrolithiasis
AAA
hiatal hernia
colon polyps
UTI
frozen shoulder x2 2011 2012
cataracts 2009
Plan
No current signs of metabolic encephalopathy or MS changes/following commands
Denies pain at this time.
Pain/sedation: fent/prop, weaning to off for SAT
RASS goals: 0
Hemodynamically stable, off pressors
Cardiac history reviewed--Extensive PAD, CAD, HTN
Prior ECHO reviewed indicating preserved EF
Resume home meds as able
Monitor on telemetry
Intubated perioperatively, extubated 07/14/24, tolerated well
Prior history of lung disease: none, was a former smoker
Supplemental O2 as indicated to maintain sats > 89%
CXR/CT reviewed indicating no active disease, repeat PRN
Diet advanced
Aspiration precautions, HOB > 30 degrees
Speech therapy eval can be considered if at elevated risk
GI prophylaxis if indicated
SANA present, mild--trend creat
CKD history
Void trials
Follow urine output, critical I/Os
Replete electrolytes as needed
No signs/symptoms suspicious for infectious etiology at this time
Observe off antibiotics for now
Follow fever trend, WBC count
CBC stable, anemia noted likely op related, resolved on repeat levels/possible false testing result
DVT prophylaxis as assessed based on risk, including mechanical SCDs
Can transfuse if indicated for Hb <7, plt < 10
No prior h/o thyroid disease
H/o diabetes, can continue on home meds, SS for coverage
HbA1c 6.5
Off insulin gtt-transitioned to SQ
DM PIT SLAGMAN following
Diagnostic Data
Chest X-Ray: 07/13/24- No active cardiopulmonary disease.
The tip of the new endotracheal tube is in satisfactory position 4.5 cm above the ruddy
CT Scan: AP 05/14/24- 1. Heavily calcified arterial plaque bilaterally, which limits CTA evaluation of the patency of multiple arteries.
2. 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
3. Mesenteric arterial stenosis. 50-75% stenosis at the origin of the celiac axis. High-grade greater than 90% stenosis and possible focal occlusion near the origin of the SMA.
4. 1.7 cm left adrenal nodule, incompletely characterized on the current CT.
Echo: 10/30/23- 1. Mild concentric left ventricular hypertrophy with preserved systolic function, EF 55-60%. Mild myocardial speckling.
2. Mitral annular calcification, thickened mitral leaflets, mild mitral regurgitation and dilated left atrium
3. Borderline aortic stenosis, peak gradient 19 mmHg, aortic valve area 1.9 cm
2. No aortic regurgitation
4. Normal right heart with pacemaker wire seen, with normal pulmonary artery systolic pressure
The study is similar to July 2022. At that time mitral regurgitation was mild to moderate and the pulmonary artery systolic pressure was 45-50 mmHg. The patient will be called and told that heart muscle function is preserved and valves are
stable.
PFT's:
Reports and relevant images were personally reviewed.
-----
Critical care time 31 mins -- this includes review of history, physical exam, medications, hemodynamic/ventilator parameters, laboratory data, imaging and discussion with house staff, pharmacy, respiratory therapy, rn patient care, and nursing.
Subjective Dataa
Subjective Data
Date of Service:
Date of Service: July 15, 2024
Chief Complaint: Manager Helpdesk Follow Up
Subjective:
no acute events ON, tolerated extubation
no new complaints, stable on RA
Off pressors
Objective Data
Data Reviewed
Vital Signs / I&O / Oxygen:
Vital Signs
Temp Pulse Resp BP Pulse Ox
99.2 F 66 15 76/47 98
07/15/24 03:21 07/15/24 06:30 07/15/24 06:30 07/15/24 06:00 07/15/24 06:30
Intake and Output
07/14/24 07/15/24 07/16/24
06:59 06:59 06:59
Intake Total 2827.9 / 2996.3 1100.7 / 1100.7
Output Total 892 / 922 1180 / 1180
Balance 1935.9 / 2074.3 -79.3 / -79.3
SaO2 [A/C] 98
SaO2 98
Nasal Cannula flow liters per 2
minute
Physical Exam
General: Comfortable and Other (NAD)
HEENT: Normocephalic, Anicteric and Moist Mucous Membranes
Cardiovascular: S1-S2 and Regular Rhythm
Respiratory: Clear and Non-Labored Respirations
GI: Soft, Non Distended and Non Tender
Neurology: Awake, Alert, Oriented and No Motor Deficits
Skin: Warm, Dry and Good Color
Labs/Micro/Reports
Lab Data
07/15/24 03:14
07/15/24 03:14
--- NOTE | 2024-07-15 07:50 | W.PN.VS ---
Addendum entered and electronically signed by Ld Diop MD 07/15/24 08:49:
Seen and examined with CLINICAL NUTRITIONIST. Agree with findings as noted below. Patient awake and alert. He is without any significant complaints. Abdomen is soft, nondistended, nontender. Left groin flat, no hematoma. Palpable femoral pulse. Right groin
flat. Feet are both warm. Good dopplerable signals. Plan/as discussed and noted below. Hemoglobin again slightly lower, but no evidence of bleeding. CT scan failed to demonstrate any RP bleed as well. Await repeat CBC.
Original Note:
Today's Communication / Plan
-
Seen and assessed with Dr. Diop
Assessment/Plan
-
POD 2 Left common femoral endarterectomy and profunda femoral artery endarterectomy with patch angioplasty using bovine pericardium
Introduce wire/catheter into aorta from right common femoral artery access
Intravascular lithotripsy to right common iliac artery occlusion using shockwave javelin catheter and 9 mm L6 balloon
Balloon angioplasty to right common iliac artery (4 mm, 5 mm, 6 mm angioplasty balloons)
Plan:
-Repeat CBC at 12, after DC A-line
-If hemoglobin lowers plan to transfuse again
-Appreciate nephrology
-PO med this am, monitoring BP
-OOB/ambulate
-MSAS
-Cont CHIO drain for now
Subjective Data
-
Date of Service: July 15, 2024
Patient seen at bedside this a.m. with Dr. Diop. Patient offers no complaints at this time. Patient resting comfortably in bed. Hemoglobin dropped slightly again this morning. No signs of bleeding. BP continues to run high.
Objective Data
-
Vital Signs
Temp Pulse Resp BP Pulse Ox
99.2 F 66 15 76/47 98
07/15/24 03:21 07/15/24 06:30 07/15/24 06:30 07/15/24 06:00 07/15/24 06:30
Intake and Output
07/14/24 07/15/24 07/16/24
06:59 06:59 06:59
Intake Total 2827.9 / 2996.3 1100.7 / 1100.7
Output Total 892 / 922 1180 / 1180
Balance 1935.9 / 2074.3 -79.3 / -79.3
Intake:
Oral fluids 110 / 110
IV fluids (Total) 2327.9 / 2496.3 490.7 / 490.7
Nss 1,000 ml @ 80 mls/hr IV . 240 / 240
[id number] ANGELICA Rx#:[id number]
Sterile Water For Injection 750 / 875 375 / 375
1000 ml 1,000 ml @ 125 mls/hr
IV .Q9H12M ANGELICA with Sodium
Bicarbonate 150 Meq Rx#:
[id number]
bolus 750 / 750
fent 42.5 / 47.5 15
insulin 93 / 103 38 / 38
levo 405.0 / 427.5 45.0 / 45.0
prop 47.4 / 53.3 17.7 / 17.7
Blood Products 250 / 250 250 / 250
Packed red blood cells 250 / 250 250 / 250
Blood Product Amount Infused ( 250 / 250 250 / 250
mL)
Packed Rbc Leukoreduced Unit 250 / 250
[id number]
Packed Rbc Leukoreduced Unit 250 / 250
[id number]
Output:
Drain Output (Total) 50 / 50 115 / 115
Left Pelvis Mateo-Goetz 50 / 50 115 / 115
Urine, Otto 842 / 872 1065 / 1065
Lab Results
07/15/24 03:14
Calcium 7.5 mg/dl (8.4-10.2) L 07/15/24 03:14
Magnesium 2.3 mg/dl (1.6-2.3) 07/15/24 03:14
Physical Exam
-
AAOx3
No tachypnea on room air
No tachycardia
A-line and cuff correlate to about 100-125 lower than actual blood pressure due to bilateral subclavian occlusions
Abdomen soft throughout, flat
Surgical sites clean, dry, intact, soft, flat
Bilateral feet warm, pink
+2 femoral pulse, + Doppler signals distally
[2024-07-15] MEDS: COLACE 100 MG PO ×2 (08:31→19:24)
[2024-07-15] MEDS: DEMADEX 20 MG PO (08:31)
[2024-07-15] MEDS: FLOMAX 0.4 MG PO (08:31)
[2024-07-15] MEDS: ZETIA 10 MG PO (08:32)
[2024-07-15] MEDS: FOLVITE 0.8 MG PO (08:33)
[2024-07-15] MEDS: HEPARIN 5000 UNITS SC ×2 (08:33→19:24)
[2024-07-15] MEDS: VITAMIN B-12 1000 MCG PO (08:33)
[2024-07-15] MEDS: LOW STRENGTH ASPIRIN 81 MG PO (08:33)
[2024-07-15] MEDS: SINGULAIR 10 MG PO (08:33)
[2024-07-15] MEDS: PLAVIX 75 MG PO (08:33)
[2024-07-15] MEDS: PROSCAR 5 MG PO (08:33)
[2024-07-15] MEDS: ROXICODONE 5 MG PO ×2 (08:54→14:59)
[2024-07-15] MEDS: LOPRESSOR PO (09:25)
--- NOTE | 2024-07-15 09:26 | PTCARENOTE ---
report received,assessments per work list. patient forgetful. pain with movement of left leg. medicated with oxycodone per prn orders. vascular team in, orders pending. monitor afib, v paced. left radial arterial line with cuff correlation. abdomen
soft, hypoactive bowel sounds. verdugo draining clear yellow urine. doppler plses checked at hand off. call washington in reach
[2024-07-15] MEDS: NOVOLOG FLEXPEN-HIGH RESISTANCE 2 UNITS SC ×2 (10:33→14:55)
[2024-07-15 10:43] LABS: Glucose - Point of Care 154 mg/dl (70-99)
--- NOTE | 2024-07-15 11:24 | W.PN.NEPH.PH ---
Today's Communication / Plan
-
follow labs
MAP goal per vasc
Assessment/Plan
-
IMP:
Darell with CKD 4-last cr 1.8 in October 2023
Mild metabolic acidosis- [place]
Mild hyperkalemia resolved
Extensive diffuse severe peripheral arterial disease status post left common femoral/profunda endarterectomies 07/13/2024
Hypotension in extremities due to b/l subclavian stenosis with claudication
Leukocytosis
Acute blood loss on chronic disease anemia
DM with a macrovascular complications, nephropathy
Perioperative mechanical ventilation
h/o Status post R carotid endarterectomy 04/30/2022
History of hypertension
Hyperlipidemia
BPH
JAQUELIN on BIPAP
Coronary artery disease with history of CABG (2015)
LAD stent in September 2021
Nephrolithiasis
AAA
hiatal hernia
PLan:
A/w elective left femoral endarterectomy on 07/13
Hypotension difficult to accurately have readings in the upper extremities with the severe PAD
Agree with the MAP 40-45 as set by vascular, wean pressors as able
[id number] up at 2.5 post contrast on 07/13
non oliguric with verdugo
Hold kerendia, ACEI, and avoid nephrotoxins
wt increasing back on home TOrsemide
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
Discussed with the nursing
-
-
Date of Service: July 15, 2024
CC / HPI / ROS
-
Chief Complaint:
DARELL, CKD
History of Present Illness:
cr up at 2.5, non oliguric with verdugo
BP low but with severe PAD, add 100 to SBP per nursing
wt is up
hb stable 7.8
Review of Systems:
no cp or sob
no YOU or vision changes
Labs
-
Labs:
WBC 9.0 10^3/uL (4.8-10.8) 07/15/24 03:14
RBC 2.46 10^6/uL (4.70-6.10) L 07/15/24 03:14
Plt Count 61 10^3/uL (130-400) L D 07/15/24 03:14
Sodium 141 mmol/L (135-145) 07/15/24 03:14
Potassium 4.2 mmol/L (3.5-5.1) 07/15/24 03:14
Chloride 108 mmol/L (98-107) H 07/15/24 03:14
Carbon Dioxide 26 mmol/L (22-30) 07/15/24 03:14
BUN 65 mg/dl (9-20) H 07/15/24 03:14
Creatinine 2.5 mg/dL (0.7-1.3) H 07/15/24 03:14
eGFR 25.50 07/15/24 03:14
Glucose 135 mg/dl (70-99) H 07/15/24 03:14
Calcium 7.5 mg/dl (8.4-10.2) L 07/15/24 03:14
Physical Exam
-
Vital Signs:
Vital Signs
Temp Pulse Resp BP Pulse Ox
98.7 F 65 16 80/38 97
07/15/24 08:00 07/15/24 09:30 07/15/24 09:30 07/15/24 08:31 07/15/24 09:30
Cardiovascular:: Regular rate and rhythm
Respiratory:: Bilateral: CTA (decreased)
Lung Excursion:: Normal
Abdomen:: Nontender and Soft
Extremity Edema:: None: Bilateral:
Verdugo Catheter: Yes
[2024-07-15 12:06] LABS: Hematocrit 21.1 % (39.0-52.0); Hemoglobin 7.5 g/dL (13.0-18.0)
--- NOTE | 2024-07-15 12:19 | PTCARENOTE ---
patient reassessed, pulses unchanged. labs sent, verdugo and arterial line d/c'd. tolerated meal without issue. awatiing PT to transfer patient to chair. call washington in reach
--- NOTE | 2024-07-15 12:40 | PN.DE.MGMTRT ---
Insulin Management
- -
07/15/2024 Diabetes Management Consult Follow up
Patient admitted 07/13 for Vascular procedure. H CAD, CABG 2015, LAD stent 2021, diabetes, CKD III, AAA, BPH, nephrolithiasis, UTI, PAD, PVD, HTN. Prior to admission was taking Ozempic 1 mg on Friday. He did take his Ozempic /. A1C on
admission 6.5%, cr 2.3, eGFR 28.18.
Patient is awake alert and oriented. Able to discuss diabetes management. Agreeable to try Farxiga or Jardiance whichever is preferred.
Patient was on glycemic protocol for glucose 371. Glucose trended down to 67, dextrose administered, glucose 192. Patient received 17 units lantus @ hs, fasting glucose 128. Currently ordered lantus 15 at HS, PLEASE HOLD if glucose is less than
150 and continue high corrective insulin. Will start farxiga 10 mg, first dose now.
Discussed with nurse and Fawad Ascencio.
Will follow.
Diabetes History
- -
Type of Diabetes: 2
Pre-Admission Diabetes Regimen
07/15/24
03:14
Creatinine 2.5 H
Lab Results
Hemoglobin A1c 6.5 % (4.0-5.6) H 07/13/24 11:27
Insulin Pump Settings
IP Diabetes Regimen
07/14/24 07/14/24 07/14/24
12:33 13:41 17:33
Glucose
POC Glucose 151 H 192 H 231 H
07/14/24 07/14/24 07/15/24
19:11 20:54 00:07
Glucose
POC Glucose 178 H 196 H 113 H
07/15/24 07/15/24 07/15/24
03:14 06:09 10:30
Glucose 135 H
POC Glucose 128 H 154 H
Meal type: Lunch
Amount consumed: 100%
Patient Education
[2024-07-15] MEDS: FARXIGA 10 MG PO (13:13)
[2024-07-15 13:25] LABS: Glucose - Point of Care 172 mg/dl (70-99)
--- NOTE | 2024-07-15 14:33 | CM ---
CM following re: discharger planning.
Reviewed pt's chart, met with pt.
Jardiance and Farxiga 10 mg daily jeong checked with [facility] pharmacist: Jardiance - $75.00 for 30 days. Farxiga - $150.00 for 30 days. Pt stated he can afford Jardiance. MD is aware, Free 14 days free trial coupon for Jardiance given to the pt.
PT and OT evaluations noted - SNF level of care recommended. pt is aware, expressed his agreement and pt requested [facility] [place] or [facility] [place]. A referral to above SNFs made. Awaiting for determination.
D/c plan: preferred SNF.
CM will follow to assist pt with discharge to a preferred SNF.
[2024-07-15 15:05] LABS: Glucose - Point of Care 171 mg/dl (70-99)
--- NOTE | 2024-07-15 15:35 | PTCARENOTE ---
unit PRBC transfusing without signs symptoms transfusion reaction. IV restarted due to other sites leaking. remains out of bed to chair for lunch
[2024-07-15] MEDS: NOVOLOG FLEXPEN-HIGH RESISTANCE 4 UNITS SC (17:50)
[2024-07-15 17:59] LABS: Glucose - Point of Care 208 mg/dl (70-99)
--- NOTE | 2024-07-15 19:15 | PTCARENOTE ---
Patient received lying in bed, awake, alert and oriented, watching TV. He is without apparent signs of distress or discomfort. He denies pain. BLE with pedal and post tibial pulses audible with doppler. No LE edema. Left arm with trace edema. He is
pale in appearance. Respirations non labored. Left groin/anterior thigh with dressing CDI, CHIO drain to bulb suction with small amount sanguinous drainage. S1 S2 regular with soft murmur. 100% Vpaced with HR 70s on CM. BBS with upper lobes clear
anteriorly. Right base diminished and left base with crackles. Abdomen soft with positive bowel sounds. Encouraged to DB & C. VSS, sats 98-100% on RA.
[2024-07-15] MEDS: LOPRESSOR 12.5 MG PO (19:24)
--- NOTE | 2024-07-15 19:44 | PTCARENOTE ---
Vital signs downloaded from 1600. Unable to verify VS from [id number].
[2024-07-15] MEDS: DESYREL 50 MG PO (21:47)
[2024-07-15] MEDS: LIPITOR 80 MG PO (21:47)
[2024-07-15] MEDS: LANTUS 0.15 UNITS SC (21:47)
[2024-07-15 21:54] LABS: Glucose - Point of Care 193 mg/dl (70-99)
[2024-07-16] VITALS (27 sets, daily range): BP systolic 46–174; BP diastolic 37–78; PULSE 57; O2SAT 96; BMI 22.7
--- NOTE | 2024-07-16 | PTCARENOTE ---
Essentially no change in patient physical assessment. VSS. No complaints offered.
[2024-07-16] MEDS: ROXICODONE 5 MG PO (01:22)
--- NOTE | 2024-07-16 01:25 | PTCARENOTE ---
Patient c/o left great toe pain 6-7/10. 5mg po Roxicodone prn given for pain. Assisted to bedpan, passed flatus, no BM. Appears to be resting comfortably when undisturbed. Sleeping intermittently. Room quieted and darkened for patient comfort.
--- NOTE | 2024-07-16 03:15 | PTCARENOTE ---
Physical assessment unchanged. Left great toe pain improved. VSS. Appears to be sleeping comfortably when undisturbed with eyes closed, lying still. respirations nonlabored.
[2024-07-16 06:27] LABS: Hematocrit 25.4 % (39.0-52.0); Hemoglobin 8.5 g/dL (13.0-18.0); Mean Corp Hgb Conc. 33.5 g/dL (33.0-37.0); Mean Corpuscular Hgb 31.3 pg (27.0-31.0); Mean Corpuscular Volume 93.4 fL (80.0-94.0); Mean Platelet Volume 10.1 fL (7.4-10.4); Platelet Count 46 10^3/uL (130-400); Red Blood Cell Count 2.72 10^6/uL (4.70-6.10); Red Cell Dist. Width 14.3 % (11.5-14.5); White Blood Cell Count 5.3 10^3/uL (4.8-10.8)
[2024-07-16 06:46] LABS: Blood Urea Nitrogen 64 mg/dl (9-20); Calcium 7.5 mg/dl (8.4-10.2); Carbon Dioxide 26 mmol/L (22-30); Chloride 109 mmol/L (98-107); Estimated Creatinine Clearance 24 ml/min; Glucose 152 mg/dl (70-99); Potassium 3.8 mmol/L (3.5-5.1); Sodium 142 mmol/L (135-145); Triglycerides 191 mg/dl (10-149); eGFR 26.78
--- NOTE | 2024-07-16 07:04 | PTCARENOTE ---
Report given verbally to CONCEPCIÓN Silvestre assuming care. Questions answered.
[2024-07-16] MEDS: LOPRESSOR 5 MG IV (07:31)
--- NOTE | 2024-07-16 07:33 | W.PN.INTV ---
Today's Communication / Plan
Recommendations
Doing well, stable on RA/off pressors
HTN management per team-renal/cards eval
OOB, PT
Transfer to tele per team, we will sign off upon transfer
Assessment
-
Patient is a 78-year-old male with previous history of hypertension, PAD, carotid disease, chronic kidney disease, CAD status post CABG presenting for elective vascular procedure. He has prior history of severe bilateral lower extremity arterial
disease with pain at rest in his left lower extremity. There is concern for chronic limb threatening ischemia. Underwent left common femoral endarterectomy and profunda femoral endarterectomy on 07/13/2024. He was notably hypotensive throughout the
case however his blood pressure was not reliably obtained through his extremities due to his extensive chronic occlusions. Postoperatively, he was maintained on the ventilator and transferred to ICU for further management of his pressor
requirements.
Extensive diffuse severe peripheral arterial disease status post left common femoral/profunda endarterectomies 07/13/2024
Hypotension in extremities due to b/l subclavian stenosis with claudication
Leukocytosis
Acute blood loss on chronic disease anemia, likely perioperative losses
Metabolic acidosis
SANA on CKD
Hyperglycemia on insulin drip
Lactic acidosis
Memory issues
Perioperative mechanical ventilation
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
Status post R carotid endarterectomy 04/30/2022
History of hypertension
Hyperlipidemia
IDDM
BPH
JAQUELIN on BIPAP
Coronary artery disease with history of CABG (2015)
LAD stent in September 2021
PAD
Chronic kidney disease stage III
Nephrolithiasis
AAA
hiatal hernia
colon polyps
UTI
frozen shoulder x2 2011 2012
cataracts 2009
Plan
No current signs of metabolic encephalopathy or MS changes/following commands
Denies pain at this time.
Pain/sedation: fent/prop, weaning to off for SAT
RASS goals: 0
Hemodynamically stable, off pressors
Cardiac history reviewed--Extensive PAD, CAD, HTN
Prior ECHO reviewed indicating preserved EF
Resume home meds as able
Monitor on telemetry
HTN per cards/renal team
Intubated perioperatively, extubated 07/14/24, tolerated well
Prior history of lung disease: none, was a former smoker
Supplemental O2 as indicated to maintain sats > 89%
CXR/CT reviewed indicating no active disease, repeat PRN
Diet advanced
Aspiration precautions, HOB > 30 degrees
Speech therapy eval can be considered if at elevated risk
GI prophylaxis if indicated
SANA present, mild--trend creat
CKD history
Void trials
Follow urine output, critical I/Os
Replete electrolytes as needed
No signs/symptoms suspicious for infectious etiology at this time
Observe off antibiotics for now
Follow fever trend, WBC count
CBC stable, anemia noted likely op related, resolved on repeat levels/possible false testing result
DVT prophylaxis as assessed based on risk, including mechanical SCDs
Can transfuse if indicated for Hb <7, plt < 10
No prior h/o thyroid disease
H/o diabetes, can continue on home meds, SS for coverage
HbA1c 6.5
Off insulin gtt-transitioned to SQ
DM TRANSISTOR TESTER following
Diagnostic Data
Chest X-Ray: 07/13/24- No active cardiopulmonary disease.
The tip of the new endotracheal tube is in satisfactory position 4.5 cm above the ruddy
CT Scan: AP 05/14/24- 1. Heavily calcified arterial plaque bilaterally, which limits CTA evaluation of the patency of multiple arteries.
2. 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
3. Mesenteric arterial stenosis. 50-75% stenosis at the origin of the celiac axis. High-grade greater than 90% stenosis and possible focal occlusion near the origin of the SMA.
4. 1.7 cm left adrenal nodule, incompletely characterized on the current CT.
Echo: 10/30/23- 1. Mild concentric left ventricular hypertrophy with preserved systolic function, EF 55-60%. Mild myocardial speckling.
2. Mitral annular calcification, thickened mitral leaflets, mild mitral regurgitation and dilated left atrium
3. Borderline aortic stenosis, peak gradient 19 mmHg, aortic valve area 1.9 cm
2. No aortic regurgitation
4. Normal right heart with pacemaker wire seen, with normal pulmonary artery systolic pressure
The study is similar to July 2022. At that time mitral regurgitation was mild to moderate and the pulmonary artery systolic pressure was 45-50 mmHg. The patient will be called and told that heart muscle function is preserved and valves are
stable.
PFT's:
Reports and relevant images were personally reviewed.
-----
Critical care time 31 mins -- this includes review of history, physical exam, medications, hemodynamic/ventilator parameters, laboratory data, imaging and discussion with house staff, pharmacy, respiratory therapy, manager investigations, and nursing.
Subjective Dataa
Subjective Data
Date of Service:
Date of Service: July 16, 2024
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
Subjective:
No new events ON, stable on RA
Not on pressors
Objective Data
Data Reviewed
Vital Signs / I&O / Oxygen:
Vital Signs
Temp Pulse Resp BP Pulse Ox
97.9 F 62 16 147/64 99
07/16/24 03:33 07/16/24 06:00 07/16/24 06:00 07/16/24 06:00 07/16/24 06:00
Intake and Output
07/15/24 07/16/24 07/17/24
06:59 06:59 06:59
Intake Total 1100.7 / 1100.7 1550 / 1550
Output Total 1180 / 1220 2135 / 2135
Balance -79.3 / -119.3 -585 / -585
SaO2 [A/C] 98
SaO2 99
Nasal Cannula flow liters per 2
minute
Physical Exam
General: Comfortable and Other (NAD)
HEENT: Normocephalic, Anicteric and Moist Mucous Membranes
Cardiovascular: S1-S2 and Regular Rhythm
Respiratory: Clear and Non-Labored Respirations
GI: Soft, Non Distended and Non Tender
Neurology: Awake, Alert, Oriented and No Motor Deficits
Skin: Warm, Dry and Good Color
Labs/Micro/Reports
Lab Data
07/16/24 05:49
07/16/24 05:49
Microbiology
07/14/24 10:27 Urine Urine Culture - Final
NO GROWTH
07/14/24 03:05 Nose MRSA Screen - Final
No Methicillin Resistant Staphylococcus aureus isolated.
--- NOTE | 2024-07-16 07:44 | PN.DE.MGMTRT ---
Insulin Management
- -
07/16/2024: Diabetes Management Follow up
Patient admitted 07/13 for Vascular procedure. PMH CAD, CABG 2015, LAD stent 2021, diabetes, CKD III, AAA, BPH, nephrolithiasis, UTI, PAD, PVD, HTN. Prior to admission was taking Ozempic 1 mg on Friday. He did take his Ozempic 07/11. A1C on
admission 6.5%, cr 2.3, eGFR 28.18.
Patient is awake alert, oriented, sitting up in chair, offers no complaints. Able to discuss diabetes management.
Agreeable to try Farxiga, which was started yesterday. Discussed post d/c plan of management and instructed to resume Ozempic upon d/c home.
07/15 premeal glucose range, 128 to 208, HS glucose 193. FBG 152 (V), 132 POC.
Will continue current regimen without changes: Lantus 15 units @ hs, Farxiga 10 mg and high corrective with meals.
PLEASE HOLD HS Lantus if glucose is less than 150 and continue high corrective insulin.
Will continue to follow.
Diabetes History
- -
Type of Diabetes: 2 requiring insulin
Pre-Admission Diabetes Regimen
07/16/24
05:49
Creatinine 2.4 H
Lab Results
Hemoglobin A1c 6.5 % (4.0-5.6) H 07/13/24 11:27
Insulin Pump Settings
IP Diabetes Regimen
07/15/24 07/15/24 07/15/24
10:30 13:12 14:54
Glucose
POC Glucose 154 H 172 H 171 H
07/15/24 07/15/24 07/16/24
17:48 21:43 05:49
Glucose 152 H
POC Glucose 208 H 193 H
Meal type: Dinner
Meal type: Lunch
Meal type: Breakfast
Amount consumed: 80%
Amount consumed: 75%
Amount consumed: 100%
Patient Education
--- NOTE | 2024-07-16 07:59 | W.PN.VS ---
Today's Communication / Plan
-
Patient seen and evaluated at bedside with Dr. Siva Otto III, below plan reviewed with attending.
Assessment/Plan
-
POD 3 Left common femoral endarterectomy and profunda femoral artery endarterectomy with patch angioplasty using bovine pericardium
Introduce wire/catheter into aorta from right common femoral artery access
Intravascular lithotripsy to right common iliac artery occlusion using shockwave javelin catheter and 9 mm L6 balloon
Balloon angioplasty to right common iliac artery (4 mm, 5 mm, 6 mm angioplasty balloons)
Plan:
-Repeat CBC this a.m. shows positive increase following 1 unit packed red blood cell transfusion yesterday, will continue to monitor with repeat a.m. CBC tomorrow
-Patient with significantly increased blood pressure readings overnight, given stat Lopressor IV see SEP, will consult cardiology to aid in hypertensive management
-Appreciate nephrology
-Given overnight increase in blood pressure patient still requires every 1 hour BP readings thus requires ICU monitoring today
-OOB/ambulate
-Cont CHIO drain and I&O monitoring
Subjective Data
-
Date of Service: July 16, 2024
Patient seen and evaluated at bedside. Denies headache, nausea, vomiting, fever, and chills. Does endorse left foot digit pain, managed with pain medication. Reports well-managed pain at left surgical incision.
Objective Data
-
Vital Signs
Temp Pulse Resp BP Pulse Ox
97.9 F 59 16 147/64 99
07/16/24 03:33 07/16/24 07:31 07/16/24 06:00 07/16/24 07:31 07/16/24 06:00
Intake and Output
07/15/24 07/16/24 07/17/24
06:59 06:59 06:59
Intake Total 1100.7 / 1100.7 1550 / 1550
Output Total 1180 / 1220 2135 / 2135
Balance -79.3 / -119.3 -585 / -585
Intake:
Oral fluids 110 / 110 1300 / 1300
IV fluids (Total) 490.7 / 490.7
Sterile Water For Injection 375 / 375
1000 ml 1,000 ml @ 125 mls/hr
IV .Q9H12M ANGELICA with Sodium
Bicarbonate 150 Meq Rx#:
[id number]
fent 15 / 15
insulin 38 / 38
levo 45.0 / 45.0
prop 17.7 / 17.7
Blood Products 250 / 250
Packed red blood cells 250 / 250
Blood Product Amount Infused ( 250 / 250 250 / 250
mL)
Packed Rbc Leukoreduced Unit 250 / 250
[id number]
Packed Rbc Leukoreduced Unit 250 / 250
[id number]
Output:
Drain Output (Total) 115 / 115 100 / 100
Left Pelvis Mateo-Goetz 115 / 115 100 / 100
Urine, Otto 1065 / 1105 675 / 675
Urine, Voided 1360 / 1360
Lab Results
07/16/24 05:49
07/16/24 05:49
Calcium 7.5 mg/dl (8.4-10.2) L 07/16/24 05:49
Magnesium 2.3 mg/dl (1.6-2.3) 07/15/24 03:14
Physical Exam
-
AAOx3
No tachypnea on room air
No tachycardia
Left arm BP cuff correlate to about 100-125 lower than actual blood pressure due to bilateral subclavian occlusions
Abdomen soft throughout, flat
Left groin site clean, dry, intact; dressing removed, dg CDI and well-approximated, no evidence of hematoma, left groin CHIO drain with serosanguineous output
Right groin puncture site CDI, dressing removed, no evidence of hematoma
Bilateral feet warm, pink
+2 femoral pulse, + Doppler signals distally
[2024-07-16] MEDS: FOLVITE 0.8 MG PO (08:02)
[2024-07-16] MEDS: LOW STRENGTH ASPIRIN 81 MG PO (08:02)
[2024-07-16] MEDS: FLOMAX 0.4 MG PO (08:03)
[2024-07-16] MEDS: ZETIA 10 MG PO (08:03)
[2024-07-16] MEDS: PROSCAR 5 MG PO (08:03)
[2024-07-16] MEDS: FARXIGA 10 MG PO (08:03)
[2024-07-16] MEDS: PLAVIX 75 MG PO (08:03)
[2024-07-16] MEDS: VITAMIN B-12 1000 MCG PO (08:04)
[2024-07-16] MEDS: SINGULAIR 10 MG PO (08:04)
[2024-07-16] MEDS: DEMADEX 20 MG PO (08:04)
[2024-07-16] MEDS: COLACE 100 MG PO ×2 (08:04→21:02)
[2024-07-16] MEDS: HEPARIN 5000 UNITS SC ×2 (08:06→21:05)
[2024-07-16 08:25] LABS: Glucose - Point of Care 134 mg/dl (70-99)
[2024-07-16] MEDS: NOVOLOG FLEXPEN-HIGH RESISTANCE SC (08:41)
[2024-07-16] MEDS: LOPRESSOR 12.5 MG PO ×2 (08:41→21:05)
--- NOTE | 2024-07-16 09:00 | PTCARENOTE ---
pt awake and oriented , Vpaced on monitor , am blood pressure 147/64, pt was given 5mg IV Lopressor as ordered by vascular DIRECTOR GEOTHERMAL OPERATIONS , states he has not slept well last night due to L toe pain , he has no pain now , all distal pulses are palpable by
Doppler , pt seen and examined by Dr Otto this am , new consults to cardiology and nephrology re pts blood pressure management
--- NOTE | 2024-07-16 09:31 | CM ---
Addendum entered by Yg Villa 07/16/24 15:27:
Per transition mgr at [facility] when pt is medically stable for discharge and an auth from [facility] is available please call [facility] rig builder [phone] to coordinate pt's
discharge/admission and DON will provide room number with updated phone number for nursing report and updated fax number.
Original Note:
CM following re: discharge planning.
Reviewed pt's chart, met with pt. Per Vascular surgery, continue CHIO drain, OOB ambulate, continue supportive care.
PT and OT evaluations noted - SNF level of care recommended and pt agrees and preferred [facility].
CM spoke to [facility] director of community life and she confirmed that pt is accepted for admission to [facility] when medically stable.
Per chart review, anticipated discharge date within 24-48 hours.
CM initiated an auth with Mo for SNF level of care at [facility] for tomorrow 07/17/24 , spoke to [facility] pharmacy sales representative Reena, pending auth/ref#: [id number]. Requested pt's clinical faxed to [facility] at [phone].
Awaiting for an auth
[facility] nursing report: [phone]
Discharge instructions fax: [phone]
D/C plan: [facility] when medically stable and when an auth is obtained.
CM will follow to assist pt with discharge to [facility]
--- NOTE | 2024-07-16 09:38 | CON.CAR ---
Addendum entered and electronically signed by Jose Betancourt MD 07/16/24 12:17:
78-year-old man who underwent left common femoral endarterectomy with profunda endarterectomy and patch angioplasty, intraoperatively found to have 100 mmHg gradient between central aortic graft sure and measurable upper extremity pressure with
right common iliac lithotripsy and balloon angioplasty of the right common iliac. We are asked to review regarding hypertension
PMH/PSH: Pacemaker 2021 with left bundle lead, 2-1 AV block, CKD 4 with creatinine 1.8 in October, CABG in 2015, LAD PCI September 2021, mild aortic stenosis, mild to moderate mitral regurgitation, hypertension, PAD with bilateral iliac stents, abdominal
aortic aneurysm. Bilateral subclavian artery occlusions, history of right CEA 2021, Hypertension, diabetes, diabetic nephropathy,, hypertension, hyperlipidemia, abdominal aortic aneurysm
current medications: Aspirin 81 mg a day, atorvastatin 80 mg a day, Plavix 75 mg a day, Colace, ezetimibe 10 mg a day, Proscar 5 mg a day, folic acid, lisinopril 5 mg daily, vitamin B12, metoprolol tartrate 12.5 twice daily, Singulair 10 mg a day,
tamsulosin 0.4 mg a day, torsemide 20 mg a day,, trazodone 50 mg a day, Farxiga 10 mg a day, insulin, and nifedipine 300 twice daily
Plan:
All things considered, he looks remarkably well considering that a documented central arterial pressure range from 200 to 230 mmHg at the time of his surgical procedure. Presumably there is a substantial gradient between his central arterial and
peripheral noninvasive blood pressures, possibly close to [address] Otto. Although it may sound extreme, ultimately I think the patient would be best served if we could accurately measure his central arterial pressure, and this may require revascularization procedure to one of the subclavian
arteries. Dr. Otto plans to discuss this option as an outpatient with the patient. Per Dr. Otto this might require a common carotid to subclavian bypass.
Agree with current antihypertensive regimen as per nephrology would recommend that noninvasive blood pressure be titrated to about 100mmHG and with such she will still have fairly significant hypertension. Ultimately to prevent endorgan damage
beyond what already exists to brain, kidney and heart it will be important to achieve normotension if possible.
Lower extremity arterial Dopplers to be repeated to see if any role voluble lower extremity blood pressures can be obtained. Per Dr. Otto, given SFA disease, this may not be feasible.
An echocardiogram from October of this year was satisfactory with mild LVH and preserved systolic function and mild mitral regurgitation with borderline aortic stenosis. Pulmonary artery systolic pressure was normal
He has follow-up with Dr. Macias in October. We will sign off, please call if questions..
Original Note:
Consultation
Consultation Request
Date/Time Consultation Requested: 07/16/2024
Date/Time Consultation Performed: 07/16/2024
Requesting Provider: ESTRELLA Hamm
Performing Provider: Nikki Kaye PA-C for Dr. Jose Betancourt
Reason for Consultation: Abnormal blood pressure
Medical History
-
Chief Complaint: SOB, leg edema
History of Present Illness:
Cisco is a complex medical history with history of CABG x3 in 2016 and recent LAD stent ([place]) 09/[address] Macias.�He also has a PMH significant for severe PAD/PVD, status post right CEA 04/30/22 for symptomatic carotid stenosis with
Dr. Otto, subclavian stenosis [proximal right subclavian artery occluded or nearly occluded with large amount of calcific atherosclerotic plaque, left subclavian artery greater than 90% stenosis, complete occlusion of the proximal right vertebral
artery], DM, CHF, JAQUELIN, and CKD/nephrotic syndrome {Dr. Mckeon} who presenting to the ED due to two-day history of worsening LE edema a/w orthopnea and dyspnea on exertion. He sleeps in a recliner normally due to CHF, and says his legs have been
increasingly getting more swollen up to his knees. Lasix 20 mg daily was started in 04/2022 and he recently increased to BID but took 40 mg yesterday morning. His grandson, Pastor Stringer called the answering service reporting labored breathing and
leg swelling when he did a check on his grandfather. Although instructed to go to the ED patient initially refused. He also reported that he does not check his blood pressure/heart rates or weigh himself on a regular basis. Fortunately, it
appears they did present to [facility] [address] with acute heart failure decompensation and worsening renal insufficiency with bradycardia arrhythmia. Patient does have a history of First-degree AV block and right bundle branch block however EKGs
noted Mobitz type I second-degree AV block and 2-1 block with heart rates initially in the 30s. He takes metoprolol succinate 12.5mg daily and is also on clonidine 0.2 mg daily per outpatient records. He denies chest pain/pressure, fevers, cough,
palpitations, dizziness, or syncope. He does have chronic lower extremity weakness and gait dysfunction but denies falls. Creatinine is 2.3 (up from creatinine of 1.3 on 05/01/22), BUN 47, Hgb 11.3, troponin 0.122, glucose 156, pro-BNP 9220 (up
from pro-BNP 3250 on 03/27/22).
PMH:
Peripheral vascular disease with bilateral iliac stents
S/p Left common femoral endarterectomy and profunda femoral artery endarterectomy with patch angioplasty using bovine pericardium 07/13/2024
Subclavian stenosis bilateral, left subtotal, right occluded
Carotid artery disease
status post right CEA April 2022
chronic kidney disease stage IV with history of nephrotic range proteinuria
Chronic heart failure with preserved ejection fraction
Coronary artery disease
s/p CABG x3, 2015)
s/p stent to LAD 09/2021
Insulin-dependent diabetes
Mild aortic valve stenosis
Mild to moderate mitral regurgitation
History of bradycardia/2-1 AV block
Status post Medtronic dual-chamber pacemaker with left bundle lead July 2021
Hypertension
Hyperlipidemia
AAA
BPH
JAQUELIN on BIPAP
Nephrolithiasis
Past Medical History
Past Medical History: Other (AD (PCI and stent to the LAD 09/2021 ([place]) this was after IVUS to the left main. Known CABG times 2015), HTN, Hypercholesterolemia, NIDDM (Polyps:, Nephrolithiasis, BPH, kidney stones), Renal Failure (Renal
insufficiency), Valvular Disease (Mild aortic valve stenosis by echo 09/2021, [facility])
Past Surgical History: Other (Cardiac (CABG 2015), LHC/PCI 09/2021; Orthopedic (Shoulder surgery) and Other (Cataract surgery); right CEA 04/30/22)
Social History
Tobacco: Former Smoker (Quit 1984)
Alcohol: None
Drug: None
Personal: Other (Lives alone in independent living)
Employment: Retired
Family History
Family History: Other (Adopted)
Allergies / Home Medications
Allergy/AdvReac Type Severity Reaction Status Date / Time
Iodinated Contrast Media Allergy Unknown Verified 07/08/24 12:30
iodine Allergy Unknown Verified 07/08/24 12:30
�Medication �Instructions �Recorded �Confirmed �Type
aspirin 81 mg chewable tablet 81 mg PO DAILY Blood clot 02/02/22 07/13/24 History
prevention/tx
atorvastatin 80 mg tablet 80 mg PO HS High cholesterol 02/02/22 07/13/24 History
clopidogrel 75 mg tablet (Plavix) 75 mg PO DAILY Blood clot 02/02/22 07/13/24 History
prevention/tx
ezetimibe 10 mg tablet (Zetia) 10 mg PO DAILY High cholesterol 02/02/22 07/13/24 History
montelukast 10 mg tablet 10 mg PO DAILY Allergies 02/02/22 07/13/24 History
trazodone 50 mg tablet 50 mg PO HS Sleep 02/02/22 07/13/24 History
folic acid 0.8 mg capsule 800 mcg PO DAILY Supplement 02/27/22 07/13/24 History
tamsulosin 0.4 mg capsule 0.4 mg PO DAILY Urinary Issue 04/30/22 07/13/24 History
semaglutide 1 mg/dose (4 mg/3 mL) 1 mg SC [place] Diabetes 07/14/22 07/13/24 History
subcutaneous pen injector (Ozempic)
torsemide 20 mg tablet 20 mg PO DAILY #30 tabs 07/21/22 07/13/24 Rx
diphenhydramine HCl 25 mg capsule 50 mg PO PRE OP 07/08/24 07/13/24 History
(Benadryl)
docusate sodium 100 mg capsule 100 mg PO BID Constipation 07/08/24 07/13/24 History
(Colace)
ergocalciferol (vitamin D2) 1,250 1,250 mcg PO QMONTH Supplement 07/08/24 07/13/24 History
mcg (50,000 unit) capsule (Vitamin
D2)
finasteride 5 mg tablet 5 mg PO DAILY Urinary Issue 07/08/24 07/13/24 History
finerenone 10 mg tablet (Kerendia) 10 mg PO DAILY Kidney Disease 07/08/24 07/13/24 History
lisinopril 5 mg tablet 5 mg PO DAILY Blood Pressure 07/08/24 07/13/24 History
mecobalamin (vitamin B12) 1,000 1,000 mcg PO DAILY Supplement 07/08/24 07/13/24 History
mcg chewable tablet (B12 Active)
methylprednisolone 4 mg tablets in 32 mg PO PRE OP 07/08/24 07/13/24 History
a dose pack
metoprolol tartrate 25 mg tablet 12.5 mg PO BID Blood Pressure 07/08/24 07/13/24 History
mineral oil-isopropyl myristat 1 applic topical BID Skin Issues 07/08/24 07/13/24 History
lotion
omega [id number]-fish oil 1,200 mg 1 cap PO DAILY Supplement 07/08/24 07/13/24 History
(144 mg-216 mg) capsule (Fish Oil)
potassium chloride 20 mEq 20 meq PO Q48H Electrolyte 07/08/24 07/13/24 History
tablet,extended Repletion
release(part/cryst) (Klor-Con M)
Physical Exam
Vital Signs
Temp Pulse Resp BP Pulse Ox
97.9 F 57 16 147/61 99
07/16/24 03:33 07/16/24 08:41 07/16/24 06:00 07/16/24 08:41 07/16/24 06:00
GEN: No distress, awake, Ox3, sitting up in bed
HEENT: supple, anicteric, mmm
LUNGS: Mildly decreased at bases otherwise CTA, no wheezes/rales
CV: Reg, S1/S2, 1/6 syst murmur, no rub or gallop
ABD: soft, BS+, NT/ND
EXT: Trace bilateral lower extremity edema, no clubbing cyanosis
NEURO: Gross non-focal
SKIN: No rash, warm, dry, pink
Lab Results
07/16/24 05:49
07/16/24 05:49
Impression / Plan
-
PCP: Kavon Arroyo
Business Office Associate: Dr. Macias
Impression:
Presented for elective vascular procedure 07/13/2024
S/p Left common femoral endarterectomy and profunda femoral artery endarterectomy with patch angioplasty using bovine pericardium 07/13/2024
SANA on CKD 4
Leukocytosis
Acute blood loss on chronic disease anemia
s/p 4 unit RBCs (2 units 07/13/2024, 1 unit 07/14/24, 1 unit 07/15/24)
Labile hypertension/hypotension
Peripheral vascular disease with bilateral iliac stents
Subclavian stenosis bilateral, left subtotal, right occluded
Carotid artery disease
status post right CEA April 2022
chronic kidney disease stage IV with history of nephrotic range proteinuria
Chronic heart failure with preserved ejection fraction
Coronary artery disease
s/p CABG x3, 2016)
s/p stent to LAD 09/2021
Insulin-dependent diabetes
Mild aortic valve stenosis
Mild to moderate mitral regurgitation
History of bradycardia/2-1 AV block
Status post Medtronic dual-chamber pacemaker with left bundle lead July 2021
Hypertension
Hyperlipidemia
AAA
BPH
JAQUELIN on BIPAP
Nephrolithiasis
Cardiac catheterization 08/2021 ([place]):�Left main no significant disease, LAD proximal 40%, mid 70%, 50% stenosis large diagonal, left circumflex ostial occlusion, right coronary artery occluded.� SVG to OM1, SVG to OM 3, SVG to RCA are widely
patent.
Cardiac catheterization ([place]) 09/12/21: IVUS to LM-->midLAD. Cutting balloon angioplasty LM-midLAD, PTCA and stent placement LM to mid LAD 3x38mm and distally 3.5x28mm Synergy NEETA. He also had shockwave lithotripsy and stent with 9x 28mm BMS to
left external iliac artery
Lexiscan nuclear stress test 06/28/2024: Perfusion imaging demonstrates small areas of mildly decreased perfusion at the apical anteroseptal, apical inferoseptal, mid/apical inferior, apical inferolateral, and mid anterolateral segments that are
partially reversible. However, these defects disappear with stress prone imaging implying soft tissue attenuation artifact rather than ischemia or infarction. Overall, perfusion imaging is probably normal
Echo 10/30/2023: EF 55 to 60%. Mild concentric LVH. Mild myocardial speckling. Mild MR with mildly dilated left atrium. Aortic sclerosis with mild aortic stenosis with peak/mean gradient 19/10 mmHg.
ECHO 07/16/22: EF 55 to 60%, mild concentric LVH, stage II diastolic dysfunction, mild to moderate MR, mild , mild TR, PAP 45 to 50 mmHg, pleural effusion noted
Echo 02/04/2022:�EF 60%, normal normal wall motion, mild concentric LVH, moderate left atrial dilation, mild to moderate MR, sclerotic aortic valve without significant stenosis
Echocardiogram 09/2021 ([place]):�EF 55 to 60%, mild MR, mild AAS with mean gradient 7 mmHg
Carotid ultrasound 01/14/2022:�Heavily calcified plaque right greater than 70% stenosis.� Heavily calcified plaque left with less than 50% stenosis however blunted waveforms are noted in vertebral artery on the left.� Vertebral flow is retrograde on
the right suggesting right subclavian/innominate stenosis.
Peripheral angiogram 08/2021:�Right subclavian occluded, left subclavian subtotal occlusion, right external iliac subtotal occlusion mid vessel and left external iliac 80% disease right common femoral, patent left common femoral artery with 90%
stenosis.
Plan:
-Presented for elective vascular procedure 07/13/2024
-S/p Left common femoral endarterectomy and profunda femoral artery endarterectomy with patch angioplasty using bovine pericardium, POD#3
-As outpatient patient has been treated for ongoing hypotension. However patient has bilateral subclavian stenosis with occluded right subclavian and significant stenosis in left subclavian as well as significant bilateral lower extremity PAD making
it very difficult to accurately have readings in the upper extremities with the severe PAD.
-Right femoral artery access attempted but then later aborted in hopes of obtaining central monitoring. However there is mention that during his peripheral intervention central blood pressure was 100 mmHg higher than manual readings.
-Upon reviewing of patient's records. EF is preserved with mild concentric LVH.
-This is difficult situation and is truly unclear as to what patient's blood pressure is reading. He is mentating well without evidence of hypoperfusion and diagnostic studies in the past do not suggest that he has significant poorly controlled
hypertension.
-After discussion with nephrology and cardiac cath rn plan will be to add low-dose of Procardia 30 mg twice daily. Will need to continue to monitor and trend blood pressure. If patient should become symptomatically hypotensive would consider reduction
in dose.
-[id number] 2.4 post contrast on 07/13, This appears to be near baseline. Nephrology following, hold kerendia, ACEI, and avoid nephrotoxins
-Weight trending up prior baseline weight in office was 145. Does not appear to be acutely volume overloaded or in heart failure. Outpatient torsemide 20 mg resumed 07/15/2024. Continue to monitor and trend weight, renal function will defer
diuresis to nephrology
-Coronary artery disease with prior CABG and LAD stenting. Overall appears stable without evidence of ischemia or complaints of chest pain. Continue aggressive risk factor and lifestyle modification. Continue aspirin, Plavix, high-dose
atorvastatin.
-History of intermittent AV block. Status post pacemaker. Per review of telemetry patient with paced rhythm without significant arrhythmia. Patient remains on low-dose metoprolol. Could be uptitrated for blood pressure management if needed.
-Acute on chronic anemia status post 4 units of blood this admission. Hemoglobin appears to be stable, currently 8.5. Continue to monitor
Discussed with cardiac cath rn (Dr. Huston), Nephrology (Dr. Mckeon)
Data Reviewed
-
EKG: Report Reviewed by me, Discussed with Physician, Discussed with Nurse and Discussed with Patient
Radiology: Report Reviewed by me, Discussed with Physician and Discussed with Patient
CT Scan: Report Reviewed by me, Discussed with Physician and Discussed with Patient
Labs: Labs Reviewed by me, Discussed with Physician, Discussed with Nurse and Discussed with Patient
Old Records: Reviewed
--- NOTE | 2024-07-16 09:49 | W.PN.NEPH.PH ---
Today's Communication / Plan
-
Will attempt to add Procardia 30 mg twice daily
Assessment/Plan
-
IMP:
Darell with CKD 4-last cr 1.8 in October 2023
Mild metabolic acidosis-lactic acid
Mild hyperkalemia resolved
Extensive diffuse severe peripheral arterial disease status post left common femoral/profunda endarterectomies 07/13/2024
Hypotension in extremities due to b/l subclavian stenosis with claudication
Leukocytosis
Acute blood loss on chronic disease anemia
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
Perioperative mechanical ventilation
h/o Status post R carotid endarterectomy 04/30/2022
History of hypertension
Hyperlipidemia
BPH
JAQUELIN on BIPAP
Coronary artery disease with history of CABG (2015)
LAD stent in September 2021
Nephrolithiasis
AAA
hiatal hernia
PLan:
A/w elective left femoral endarterectomy on 07/13
Hypotension difficult to accurately have readings in the upper extremities with the severe PAD
Vascular is concerned that his peripheral blood pressures are much higher than what cuff pressures reveal given severe peripheral vascular disease
I am unsure how we can accurately assess his true blood pressure, he does not appear to have stigmata of uncontrolled hypertension symptomatically via recent echocardiogram report and stable proteinuria. The patient denies any headache or visual
disturbances
Patient remains completely asymptomatic, if in fact patient was in hypertensive crisis
We can implement Procardia 30 mg twice daily and measure his response symptomatically if he becomes truly
hypotensive
Agree with the MAP 40-45 as set by vascular, wean pressors as able
[id number] a little better at 2.4 post contrast on 07/13, remains grossly nonoliguric
Holding kerendia, ACEI, and avoid nephrotoxins
Maintained on torsemide 20 mg daily
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
Discussed with the nursing
-
-
Date of Service: July 16, 2024
CC / HPI / ROS
-
Chief Complaint:
DARELL, CKD
History of Present Illness:
cr down to 2.4, non oliguric with verdugo
BP recorded as 147 systolic
wt is up
hb stable at 8.5
Review of Systems:
no cp or sob
no YOU or vision changes
Nonoliguric
Labs
-
Labs:
WBC 5.3 10^3/uL (4.8-10.8) 07/16/24 05:49
RBC 2.72 10^6/uL (4.70-6.10) L 07/16/24 05:49
Hgb 8.5 g/dL (13.0-18.0) L 07/16/24 05:49
Hct 25.4 % (39.0-52.0) L 07/16/24 05:49
Plt Count 46 10^3/uL (130-400) L D 07/16/24 05:49
Sodium 142 mmol/L (135-145) 07/16/24 05:49
Potassium 3.8 mmol/L (3.5-5.1) 07/16/24 05:49
Chloride 109 mmol/L (98-107) H 07/16/24 05:49
Carbon Dioxide 26 mmol/L (22-30) 07/16/24 05:49
BUN 64 mg/dl (9-20) H 07/16/24 05:49
Creatinine 2.4 mg/dL (0.7-1.3) H 07/16/24 05:49
eGFR 26.78 07/16/24 05:49
Glucose 152 mg/dl (70-99) H 07/16/24 05:49
Calcium 7.5 mg/dl (8.4-10.2) L 07/16/24 05:49
Physical Exam
-
Vital Signs:
Vital Signs
Temp Pulse Resp BP Pulse Ox
97.9 F 57 16 147/61 99
07/16/24 03:33 07/16/24 08:41 07/16/24 06:00 07/16/24 08:41 07/16/24 06:00
Cardiovascular:: Regular rate and rhythm
Respiratory:: Bilateral: CTA (decreased)
Lung Excursion:: Normal
Abdomen:: Nontender and Soft
Extremity Edema:: None: Bilateral:
Verdugo Catheter: Yes
[2024-07-16] MEDS: NOVOLOG FLEXPEN-HIGH RESISTANCE 2 UNITS SC ×2 (11:47→16:31)
[2024-07-16 11:57] LABS: Glucose - Point of Care 173 mg/dl (70-99)
--- NOTE | 2024-07-16 12:53 | PTCARENOTE ---
pt obb in chair , ambulating with walker without difficulty , tolerating diet , Pt had blood pressure checked from all limbs refer to recorder VS , continuing to use L upper arm for blood pressure readings , pt to remain in ICU for q1 hour blood
pressure checks
--- NOTE | 2024-07-16 16:38 | PTCARENOTE ---
no change in assessments
[2024-07-16 16:41] LABS: Glucose - Point of Care 162 mg/dl (70-99)
--- NOTE | 2024-07-16 20:00 | PTCARENOTE ---
Patient received lying in bed. He appears to be sleeping comfortably with his eyes closed, lying still, respirations non labored. Rouses easily to name called. He is without apparent signs of distress or discomfort. States left groin/ left great toe
discomfort 2/10 and tolerable. Right groin without evidence of hematoma. Left groin incision well approximated with dg CDI. Left anterior thigh with CHIO drain to bulb suction with small amount of sanguinous drainage. BBS with upper lobes clear
anteriorly. Right base and RML diminished, left base diminished with fine crackles. S1S2 regular with soft murmur. 100% Vpaced on CM. No BLE edema. Bilateral pedal and post tib pulses weak but palpable, skin pink, warm and dry. Patient with BRP with
SBA and rolling walker, gait steady. Voids without difficulty, passing flatus but no BM.
[2024-07-16] MEDS: PROCARDIA XL (EXTENDED RELEASE) 30 MG PO (21:01)
[2024-07-16] MEDS: LIPITOR 80 MG PO (21:02)
[2024-07-16] MEDS: LANTUS SC (21:04)
[2024-07-16 21:15] LABS: Glucose - Point of Care 128 mg/dl (70-99)
[2024-07-16] MEDS: DESYREL 50 MG PO (22:19)
[2024-07-17] VITALS (14 sets, daily range): BP systolic 80–129; BP diastolic 47–66; PULSE 2–60; BMI 22.4
--- NOTE | 2024-07-17 | PTCARENOTE ---
Essentially no change in patient physical assessment. He appears to be sleeping comfortably when undisturbed, Bipap in place. No complaints offered. BP within acceptable, desired range per vascular.
--- NOTE | 2024-07-17 04:00 | PTCARENOTE ---
Patient appears to be sleeping comfortably with eyes closed, lying still, resps. non labored. Rouses to verbal and tactile stimuli. Tolerating titrating Levophed down. BP stable. BBS with intermittent expir. wheezes and scattered crackles t/o right.
Maintaining sats on 5L/nc.
--- NOTE | 2024-07-17 04:30 | PTCARENOTE ---
Patient is awake and requesting the Bipap be removed. Removed and respiratory therapy made aware. Am labs drawn. Patient voids per urinal without difficulty. Afebrile, VSS. No other change in physical assessment.
[2024-07-17 04:50] LABS: Hematocrit 25.6 % (39.0-52.0); Hemoglobin 8.8 g/dL (13.0-18.0); Mean Corp Hgb Conc. 34.4 g/dL (33.0-37.0); Mean Corpuscular Hgb 32.1 pg (27.0-31.0); Mean Corpuscular Volume 93.4 fL (80.0-94.0); Mean Platelet Volume 9.8 fL (7.4-10.4); Platelet Count 60 10^3/uL (130-400); Red Blood Cell Count 2.74 10^6/uL (4.70-6.10); Red Cell Dist. Width 13.8 % (11.5-14.5); White Blood Cell Count 5.2 10^3/uL (4.8-10.8)
[2024-07-17 05:15] LABS: Blood Urea Nitrogen 60 mg/dl (9-20); Calcium 7.8 mg/dl (8.4-10.2); Carbon Dioxide 25 mmol/L (22-30); Chloride 107 mmol/L (98-107); Estimated Creatinine Clearance 28 ml/min; Glucose 80 mg/dl (70-99); Potassium 3.7 mmol/L (3.5-5.1); Sodium 140 mmol/L (135-145); eGFR 31.43
--- NOTE | 2024-07-17 05:20 | PTCARENOTE ---
Am Labs drawn. Blood sugar fingerstick 73. Carol Green APN made aware, awaiting results of am labs. Temp 100.8F, 1000mg Tylenol given po prn temp. Patient with slight chills. No change on CM, SR 80-90s with BBB. Patient has been sleeping well t/o night
--- NOTE | 2024-07-17 07:02 | W.PN.VS ---
Addendum entered and electronically signed by Ld Diop MD 07/17/24 15:47:
Seen and examined. Agree with findings as noted below. Patient without significant complaints. Abdomen is soft. Groins are flat bilaterally. Feet are warm. Plan/as discussed and noted below. Appreciate hematology evaluation. Heparin held.
Will change to subcutaneous fondaparinux. HIT panel pending.
Original Note:
Today's Communication / Plan
-
Reviewed physical exam, lab values, and subjective and objective data with on-call attending Dr. Ld Diop via phone, agrees with below plan.
Assessment/Plan
-
POD 4 Left common femoral endarterectomy and profunda femoral artery endarterectomy with patch angioplasty using bovine pericardium
Introduce wire/catheter into aorta from right common femoral artery access
Intravascular lithotripsy to right common iliac artery occlusion using shockwave javelin catheter and 9 mm L6 balloon
Balloon angioplasty to right common iliac artery (4 mm, 5 mm, 6 mm angioplasty balloons)
Plan:
-Repeat CBC this a.m. shows stable hemoglobin. However, continued thrombocytopenia noted subcu heparin for DVT prophylaxis stopped and HIT panel sent. Out of an abundance of caution we will also consult oncology/hematology for any further
recommendations. Will continue to trend with repeat a.m. labs tomorrow.
-Appreciate nephrology and cardiology recommendations addition of PO Procardia resulting in improved BP control
-OOB/ambulate
-Cont CHIO drain and I&O monitoring
-Okay to downgrade to telemetry
-Continue to encourage incentive spirometry
Subjective Data
-
Date of Service: July 17, 2024
Patient seen and examined at bedside, offers no complaints. Denies headache, nausea, vomiting, fever, and chills. Reports tolerating p.o. diet. Reports adequate postoperative pain management.
Objective Data
-
Vital Signs
Temp Pulse Resp BP Pulse Ox
97.1 F 57 13 105/50 99
07/17/24 05:42 07/17/24 06:00 07/17/24 06:00 07/17/24 06:00 07/17/24 05:42
Intake and Output
07/16/24 07/17/24 07/18/24
06:59 06:59 06:59
Intake Total 1550 / 1550 620 / 620
Output Total 2135 / 2135 810 / 810
Balance -585 / -585 -190 / -190
Intake:
Oral fluids 1300 / 1300 620 / 620
Blood Product Amount Infused ( 250 / 250
mL)
Packed Rbc Leukoreduced Unit 250 / 250
[id number]
Output:
Drain Output (Total) 85 / 85
Left Pelvis Mateo-Goetz 85 / 85
Urine, Otto 675 / 675
Urine, Voided 1360 / 1360 725 / 725
Other:
Number of approximated MODERATE 1
amounts of urine
Lab Results
07/17/24 04:30
07/17/24 04:30
Calcium 7.8 mg/dl (8.4-10.2) L 07/17/24 04:30
Magnesium 2.3 mg/dl (1.6-2.3) 07/15/24 03:14
Physical Exam
-
AAOx3
No tachypnea on room air
No tachycardia
Arm BP cuff correlate to about 100-125 lower than actual blood pressure due to bilateral subclavian occlusions
Abdomen soft throughout, flat
Left groin dg CDI and well-approximated, no evidence of hematoma, left groin CHIO drain with serosanguineous output
Right groin puncture site CDI, no evidence of hematoma
Bilateral feet warm, pink
+ Doppler signals distally
--- NOTE | 2024-07-17 07:10 | PTCARENOTE ---
Report given verbally to Abelino BEEBE. Questions answered.
--- NOTE | 2024-07-17 07:23 | W.PN.INTV ---
Today's Communication / Plan
Recommendations
BP management per team
Not on pressors, stable on room air
No new complaints, encouraged further OOB to chair today
Has been stable for several days
Recommend transfer to tele, we will sign off upon transfer
Assessment
-
Patient is a 78-year-old male with previous history of hypertension, PAD, carotid disease, chronic kidney disease, CAD status post CABG presenting for elective vascular procedure. He has prior history of severe bilateral lower extremity arterial
disease with pain at rest in his left lower extremity. There is concern for chronic limb threatening ischemia. Underwent left common femoral endarterectomy and profunda femoral endarterectomy on 07/13/2024. He was notably hypotensive throughout the
case however his blood pressure was not reliably obtained through his extremities due to his extensive chronic occlusions. Postoperatively, he was maintained on the ventilator and transferred to ICU for further management of his pressor
requirements.
Extensive diffuse severe peripheral arterial disease status post left common femoral/profunda endarterectomies 07/13/2024
Hypotension in extremities due to b/l subclavian stenosis with claudication
Leukocytosis
Acute blood loss on chronic disease anemia, likely perioperative losses
Metabolic acidosis
SANA on CKD
Hyperglycemia on insulin drip
Lactic acidosis
Memory issues
Perioperative mechanical ventilation
Conditions present TONSORIAL ARTIST
Status post R carotid endarterectomy 04/30/2022
History of hypertension
Hyperlipidemia
IDDM
BPH
JAQUELIN on BIPAP
Coronary artery disease with history of CABG (2015)
LAD stent in September 2021
PAD
Chronic kidney disease stage III
Nephrolithiasis
AAA
hiatal hernia
colon polyps
UTI
frozen shoulder x2 2011 2012
cataracts 2009
Plan
No current signs of metabolic encephalopathy or MS changes/following commands
Denies pain at this time.
Pain/sedation: PRN/denies pain
RASS goals: 0
Hemodynamically stable, off pressors
Cardiac history reviewed--Extensive PAD, CAD, HTN
Prior ECHO reviewed indicating preserved EF
Resume home meds as able
Monitor on telemetry
HTN per cards/renal team
Intubated perioperatively, extubated 07/14/24, tolerated well
Prior history of lung disease: none, was a former smoker
Supplemental O2 as indicated to maintain sats > 89%
CXR/CT reviewed indicating no active disease, repeat PRN
Diet advanced, tolerating
Aspiration precautions, HOB > 30 degrees
Speech therapy eval can be considered if at elevated risk
GI prophylaxis if indicated
SANA present, mild--trend creat
CKD history
Void trials
Follow urine output, critical I/Os
Replete electrolytes as needed
No signs/symptoms suspicious for infectious etiology at this time
Observe off antibiotics for now
Follow fever trend, WBC count
CBC stable, anemia noted likely op related, resolved on repeat levels/possible false testing result
DVT prophylaxis as assessed based on risk, including mechanical SCDs
Can transfuse if indicated for Hb <7, plt < 10
No prior h/o thyroid disease
H/o diabetes, can continue on home meds, SS for coverage
HbA1c 6.5
Off insulin gtt-transitioned to SQ
DM SPOT CLEANER following
Diagnostic Data
Chest X-Ray: 07/13/24- No active cardiopulmonary disease.
The tip of the new endotracheal tube is in satisfactory position 4.5 cm above the ruddy
CT Scan: AP 05/14/24- 1. Heavily calcified arterial plaque bilaterally, which limits CTA evaluation of the patency of multiple arteries.
2. 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
3. Mesenteric arterial stenosis. 50-75% stenosis at the origin of the celiac axis. High-grade greater than 90% stenosis and possible focal occlusion near the origin of the SMA.
4. 1.7 cm left adrenal nodule, incompletely characterized on the current CT.
Echo: 10/30/23- 1. Mild concentric left ventricular hypertrophy with preserved systolic function, EF 55-60%. Mild myocardial speckling.
2. Mitral annular calcification, thickened mitral leaflets, mild mitral regurgitation and dilated left atrium
3. Borderline aortic stenosis, peak gradient 19 mmHg, aortic valve area 1.9 cm
2. No aortic regurgitation
4. Normal right heart with pacemaker wire seen, with normal pulmonary artery systolic pressure
The study is similar to July 2022. At that time mitral regurgitation was mild to moderate and the pulmonary artery systolic pressure was 45-50 mmHg. The patient will be called and told that heart muscle function is preserved and valves are
stable.
PFT's:
Reports and relevant images were personally reviewed.
-----
Critical care time 31 mins -- this includes review of history, physical exam, medications, hemodynamic/ventilator parameters, laboratory data, imaging and discussion with house staff, pharmacy, respiratory therapy, machine loader, and nursing.
Subjective Dataa
Subjective Data
Date of Service:
Date of Service: July 17, 2024
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
Subjective:
no new events ON, remains stable
off pressors, no new complaints
Objective Data
Data Reviewed
Vital Signs / I&O / Oxygen:
Vital Signs
Temp Pulse Resp BP Pulse Ox
98.7 F 58 13 114/52 99
07/17/24 07:00 07/17/24 07:00 07/17/24 07:00 07/17/24 07:00 07/17/24 05:42
Intake and Output
07/16/24 07/17/24 07/18/24
06:59 06:59 06:59
Intake Total 1550 / 1550 620 / 620
Output Total 2135 / 2135 810 / 810
Balance -585 / -585 -190 / -190
SaO2 [A/C] 98
SaO2 99
Nasal Cannula flow liters per 2
minute
Physical Exam
General: Comfortable and Other (NAD)
HEENT: Normocephalic, Anicteric and Moist Mucous Membranes
Cardiovascular: S1-S2 and Regular Rhythm
Respiratory: Clear and Non-Labored Respirations
GI: Soft, Non Distended and Non Tender
Neurology: Awake, Alert, Oriented and No Motor Deficits
Skin: Warm, Dry and Good Color
Labs/Micro/Reports
Lab Data
07/17/24 04:30
07/17/24 04:30
Microbiology
07/14/24 10:27 Urine Urine Culture - Final
NO GROWTH
07/14/24 03:05 Nose MRSA Screen - Final
No Methicillin Resistant Staphylococcus aureus isolated.
[2024-07-17 08:00] LABS: Glucose - Point of Care 83 mg/dl (70-99)
--- NOTE | 2024-07-17 08:23 | CON.ONC ---
Addendum entered and electronically signed by Suyapa Benitez MD 07/17/24 15:11:
Pt seen and examined, chart reviewed.
Pt states no heparin within the last thirty days prior to this admission. Platelet drop in less than 5 days after starting heparin is not consistent with HIT.
However, would use fondaparinux for now if anticoagulation needed. Prophylaxis dosing is 2.5 mg Q24h.
B12 and folate normal.
DIC panel unremarkable.
Suspect thrombocytopenia is consumptive s/p surgery
Thank you for consult, will follow along with you.
Original Note:
Impression
Impression
acute thrombocytopenia post-operatively
acute on chronic anemia likely intra/post operative blood loss s/p 4 unit prbc during hospitalization, last 07/15
Plan
Plan
monitor for infection, currently leukocytosis resolved and remains afebrile
Agree to check HIT and stop heparin dvt ppx
could consider fondaparinux dvt ppx while awaiting HIT results
check B12, folate (on B12 and folic acid supplement)
check DIC panel
monitor for bleeding
Patient History
History of Present Illness
78yo M admitted for elective vascular procedure due to concern for critical limb ischemia. He underwent a left common femoral endarterectomy and profunda femoral endarterectomy on 07/13/2024 and extubated 07/14/2024. Intra/post operative course c/b
hypotension, blood loss anemia, SANA on CKD, hyperglycemia requiring insulin gtt, and now thrombocytopenia. Hematology is consulted for evaluation of thrombocytopenia.
CBC trend notable for Hgb 8.7g/dL then dropped to 6.7g/dL for which he received PRBC and has remained stable. Baseline Hgb ~10-11g/dL. WBC has trended from 24.5 to normal 5.2. His platelet count has trended from 144,000 to 60,000 today. He has no
prior thrombocytopenia. He has received heparin dvt ppx since 07/14 and systemic heparin was used intraoperatively 07/13/2024. He received pre-operative abx.
Clinically, he is now extubed and off pressors. He denies any overt bleeding.
Past-Medical/Surgical History
PMH hypertension, PAD, carotid disease, chronic kidney disease, CAD , BPH, DM2, JAQUELIN BIPAP, nephrolithiasis, AAA, hiatal hernia, colon polyps
PSH CABG, LAD stent 2015, left common femoral endarterectomy and profunda femoral endarterectomy on 07/13/2024, cataract, shoulder
Social former smoker, denies ETOH or recreational drugs
Patient Medication
�Medication �Instructions �Recorded �Confirmed �Last Taken �Type
aspirin 81 mg chewable tablet 81 mg PO DAILY Blood clot 02/02/22 07/13/24 07/13/24 08:30 History
prevention/tx
atorvastatin 80 mg tablet 80 mg PO HS High cholesterol 02/02/22 07/13/24 07/12/24 22:00 History
clopidogrel 75 mg tablet (Plavix) 75 mg PO DAILY Blood clot 02/02/22 07/13/24 07/13/24 08:30 History
prevention/tx
ezetimibe 10 mg tablet (Zetia) 10 mg PO DAILY High cholesterol 02/02/22 07/13/24 07/12/24 08:00 History
montelukast 10 mg tablet 10 mg PO DAILY Allergies 02/02/22 07/13/24 07/12/24 08:00 History
trazodone 50 mg tablet 50 mg PO HS Sleep 02/02/22 07/13/24 07/12/24 22:00 History
folic acid 0.8 mg capsule 800 mcg PO DAILY Supplement 02/27/22 07/13/24 07/12/24 08:00 History
tamsulosin 0.4 mg capsule 0.4 mg PO DAILY Urinary Issue 04/30/22 07/13/24 07/12/24 08:00 History
semaglutide 1 mg/dose (4 mg/3 mL) 1 mg SC [place] Diabetes 07/14/22 07/13/24 07/11/24 08:30 History
subcutaneous pen injector (Ozempic)
torsemide 20 mg tablet 20 mg PO DAILY #30 tabs 07/21/22 07/13/24 07/12/24 08:00 Rx
diphenhydramine HCl 25 mg capsule 50 mg PO PRE OP 07/08/24 07/13/24 07/13/24 08:30 History
(Benadryl)
docusate sodium 100 mg capsule 100 mg PO BID Constipation 07/08/24 07/13/24 07/12/24 22:00 History
(Colace)
ergocalciferol (vitamin D2) 1,250 1,250 mcg PO QMONTH Supplement 07/08/24 07/13/24 07/12/24 08:00 History
mcg (50,000 unit) capsule (Vitamin
D2)
finasteride 5 mg tablet 5 mg PO DAILY Urinary Issue 07/08/24 07/13/24 07/12/24 08:00 History
finerenone 10 mg tablet (Kerendia) 10 mg PO DAILY Kidney Disease 07/08/24 07/13/24 07/12/24 08:00 History
lisinopril 5 mg tablet 5 mg PO DAILY Blood Pressure 07/08/24 07/13/24 07/12/24 08:00 History
mecobalamin (vitamin B12) 1,000 1,000 mcg PO DAILY Supplement 07/08/24 07/13/24 07/12/24 08:00 History
mcg chewable tablet (B12 Active)
methylprednisolone 4 mg tablets in 32 mg PO PRE OP 07/08/24 07/13/24 07/13/24 08:30 History
a dose pack
metoprolol tartrate 25 mg tablet 12.5 mg PO BID Blood Pressure 07/08/24 07/13/24 07/13/24 08:30 History
mineral oil-isopropyl myristat 1 applic topical BID Skin Issues 07/08/24 07/13/24 07/12/24 22:00 History
lotion
omega 7-gox-dsq-fish oil 1,200 mg 1 cap PO DAILY Supplement 07/08/24 07/13/24 07/12/24 08:00 History
(144 mg-216 mg) capsule (Fish Oil)
potassium chloride 20 mEq 20 meq PO Q48H Electrolyte 07/08/24 07/13/24 07/12/24 08:00 History
tablet,extended Repletion
release(part/cryst) (Klor-Con M)
Active Medications
Generic Name Dose Route Start Last Admin
Trade Name Freq PRN Reason Stop Dose Admin
Aspirin 81 mg 07/14/24 08:00 07/16/24 08:02
Aspirin 81 Mg Chewable Tablet PO 08/11/24 07:59 81 mg
DAILY ANGELICA Administration
Atorvastatin Calcium 80 mg 07/13/24 22:00 07/16/24 21:02
Atorvastatin (Lipitor) 80 Mg Tablet PO 08/10/24 21:59 80 mg
HS ANGELICA Administration
Bisacodyl 10 mg 07/13/24 16:36
Bisacodyl 10 Mg Rectal Suppository RECTAL 08/10/24 16:35
DAILYPRN PRN
constipation
Clopidogrel Bisulfate 75 mg 07/14/24 08:00 07/16/24 08:03
Clopidogrel 75 Mg Tablet PO 08/11/24 07:59 75 mg
DAILY ANGELICA Administration
Cyanocobalamin 1,000 mcg 07/14/24 08:00 07/16/24 08:04
Cyanocobalamin 1,000 Mcg Tablet PO 08/11/24 07:59 1,000 mcg
DAILY ANGELICA Administration
Dapagliflozin 10 mg 07/15/24 11:45 07/16/24 08:03
Dapagliflozin (Farxiga) 10 Mg Tablet PO 08/12/24 11:44 10 mg
DAILY ANGELICA Administration
Dextrose 12.5 grams 07/14/24 19:00
Dextrose 50% (0.5 Grams/Ml) 50 Ml Syringe IV 08/11/24 18:59
[id number] PRN
hypoglycemia
Protocol
Docusate Sodium 100 mg 07/13/24 20:00 07/16/24 21:02
Docusate Sodium 100 Mg Capsule PO 08/10/24 19:59 100 mg
BID ANGELICA Administration
Ezetimibe 10 mg 07/14/24 08:00 07/16/24 08:03
Ezetimibe (Zetia) 10 Mg Tablet PO 08/11/24 07:59 10 mg
DAILY ANGELICA Administration
Ergocalciferol 50,000 units 08/12/24 08:00
Ergocalciferol (Vitamin D-2) 97070 Units Capsule PO 09/09/24 07:59
Q30D ANGELICA
Finasteride 5 mg 07/14/24 08:00 07/16/24 08:03
Finasteride 5 Mg Tablet PO 08/11/24 07:59 5 mg
DAILY ANGELICA Administration
Folic Acid 0.8 mg 07/14/24 08:00 07/16/24 08:02
Folic Acid 0.4 Mg Tablet PO 08/11/24 07:59 0.8 mg
DAILY ANGELICA Administration
Glucagon 1 mg 07/14/24 19:00
Glucagon 1 Mg Vial IM 08/11/24 18:59
PRN PRN
hypoglycemia - no IV access
Protocol
Heparin Sodium 5,000 units 07/14/24 08:00 07/16/24 21:05
Heparin 5,000 Units/Ml 1 Ml Vial SC 08/11/24 07:59 5,000 units
Q12 ANGELICA Administration
Hydromorphone HCl 0.5 mg 07/13/24 16:36
Hydromorphone 0.5 Mg/0.5 Ml Syringe IV 07/27/24 16:35
Q4HPRN PRN
severe pain
Acetaminophen 1,000 mg in 100 mls @ 400 mls/hr 07/13/24 22:11
Ofirmev IV
Q6HPRN PRN
temp greater 100.4
Protocol
Insulin Glargine 15 units/ 0.15 mls @ 0 mls/hr 07/15/24 22:00 07/16/24 21:04
Device SC 08/12/24 21:59 Not Given
HS ANGELICA
As Directed
Insulin Aspart 0 units 07/15/24 17:00 07/16/24 16:31
Insulin Aspart High Resistance 300 Units/3 Ml Pen.Injctr SC 08/12/24 16:59 2 units
AC ANGELICA Administration
Protocol
Lisinopril 5 mg 07/14/24 08:00 07/15/24 09:25
Lisinopril 5 Mg Tablet PO 08/11/24 07:59 Not Given
DAILY ANGELICA
Metoprolol Tartrate 12.5 mg 07/13/24 20:00 07/16/24 21:05
Metoprolol 12.5 Mg Regular Release Dose (1/2 Of 25 Mg Tablet) PO 08/10/24 19:59 12.5 mg
BID ANGELICA Administration
Montelukast Sodium 10 mg 07/14/24 08:00 07/16/24 08:04
Montelukast Sodium 10 Mg Tablet PO 08/11/24 07:59 10 mg
DAILY ANGELICA Administration
Nifedipine 30 mg 07/16/24 20:00 07/16/24 21:01
Nifedipine 30 Mg Extended Release Tablet PO 08/13/24 19:59 30 mg
BID ANGELICA Administration
Oxycodone HCl 5 mg 07/13/24 16:36 07/16/24 01:22
Oxycodone 5 Mg Regular Release Tablet PO 07/27/24 16:35 5 mg
Q4HPRN PRN Administration
moderate pain
Sodium Chloride 0 flush 07/13/24 17:00
Sodium Chloride 0.9% (Flush) Syringe IV 08/10/24 16:59
PER PROTOCOL ANGELICA
Tamsulosin HCl 0.4 mg 07/14/24 08:00 07/16/24 08:03
Tamsulosin 0.4 Mg Capsule PO 08/11/24 07:59 0.4 mg
DAILY ANGELICA Administration
Torsemide 20 mg 07/14/24 08:00 07/16/24 08:04
Torsemide 20 Mg Tablet PO 08/11/24 07:59 20 mg
DAILY ANGELICA Administration
Trazodone HCl 50 mg 07/14/24 22:00 07/16/24 22:19
Trazodone 50 Mg Tablet PO 08/11/24 21:59 50 mg
HS ANGELICA Administration
Review of Systems
-
ROS notable for HPI, otherwise negative
Physical Exam
-
General: No Apparent Distress
HEENT: Moist Mucous Membranes; Negative Jaundice
Cardiology: Normal Sinus Rhythm
Pulmonary: Clear
GI: Soft
Extremities: Edema
Neurology: Non Focal
Skin: Warm and Other (left groin site with dg CDI, no hematoma)
Psych: Calm
Labs
Lab Results
WBC 5.2 10^3/uL (4.8-10.8) 07/17/24 04:30
RBC 2.74 10^6/uL (4.70-6.10) L 07/17/24 04:30
Hgb 8.8 g/dL (13.0-18.0) L 07/17/24 04:30
Hct 25.6 % (39.0-52.0) L 07/17/24 04:30
MCV 93.4 fL (80.0-94.0) 07/17/24 04:30
MCH 32.1 pg (27.0-31.0) H 07/17/24 04:30
MCHC 34.4 g/dL (33.0-37.0) 07/17/24 04:30
RDW 13.8 % (11.5-14.5) 07/17/24 04:30
Plt Count 60 10^3/uL (130-400) L D 07/17/24 04:30
MPV 9.8 fL (7.4-10.4) 07/17/24 04:30
Abs Immat Gran (auto) 0.0 10^3/uL (0-0.05) 07/09/24 10:39
Absolute Neuts (auto) 4.9 10^3/uL (1.4-6.5) 07/09/24 10:39
Absolute Lymphs (auto) 0.6 10^3/uL (1.2-3.4) L 07/09/24 10:39
Absolute Monos (auto) 0.3 10^3/uL (0.1-0.6) 07/09/24 10:39
Absolute Eos (auto) 0.3 10^3/uL (0-0.7) 07/09/24 10:39
Absolute Basos (auto) 0.0 10^3/uL (0-0.2) 07/09/24 10:39
Immature Gran % 0.5 % (0-0.5) 07/09/24 10:39
Neutrophils % 80.0 % (42.2-75.2) H 07/09/24 10:39
Lymphocytes % 10.3 % (20.5-51.1) L 07/09/24 10:39
Monocytes % 4.9 % (1.7-9.3) 07/09/24 10:39
Eosinophils % 4.1 % (0-6) 07/09/24 10:39
Basophils % 0.2 % (0-2) 07/09/24 10:39
Creatinine 2.1 mg/dL (0.7-1.3) H 07/17/24 04:30
Vital Signs
Vital Signs
Temp Pulse Resp BP Pulse Ox
98.7 F 58 13 114/52 99
07/17/24 07:00 07/17/24 07:00 07/17/24 07:00 07/17/24 07:00 07/17/24 05:42
--- NOTE | 2024-07-17 08:30 | PTCARENOTE ---
Patient rec'd from night RN, drowsy but easily arousable to voice. AOx3, [place], very slightly forgetful but easily reoriented. Vascular checks as documented, only pain at this time is right heel discomfort 2/10 and resolved with repositioning. Right
groin without evidence of hematoma. Left groin incision well approximated with dg CDI. Left anterior thigh with CHIO drain to bulb suction with small amount of sanguinous drainage. Lung sounds diminished t/o. S1S2 regular with soft murmur. 100%
Vpaced on tele, first degree AVB, BBC and prolonged QT noted. Trace BLE edema. Bilateral pedal and post tib pulses via dopplar, skin reddish/brown, warm and dry. Patient steady on feet, assisted oob to chair with standby assistance only. Voids
without difficulty, passing flatus but no BM. Excellent appetite noted. Pt stable for downgrade per vascular MANAGER CLINIC. Safe environment maintained.
--- NOTE | 2024-07-17 08:30 | W.PN.NEPH.PH ---
Today's Communication / Plan
-
Maintain current antihypertensive regimen
Follow BMP
Assessment/Plan
-
IMP:
Darell with CKD 4-last cr 1.8 in October 2023
Mild metabolic acidosis-lactic acid
Mild hyperkalemia resolved
Extensive diffuse severe peripheral arterial disease status post left common femoral/profunda endarterectomies 07/13/2024
Hypotension in extremities due to b/l subclavian stenosis with claudication
Leukocytosis
Acute blood loss on chronic disease anemia
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
Perioperative mechanical ventilation
h/o Status post R carotid endarterectomy 04/30/2022
History of hypertension
Hyperlipidemia
BPH
JAQUELIN on BIPAP
Coronary artery disease with history of CABG (2015)
LAD stent in September 2021
Nephrolithiasis
AAA
hiatal hernia
PLan:
A/w elective left femoral endarterectomy on 07/13
Hypotension difficult to accurately have readings in the upper extremities with the severe PAD
Vascular is concerned that his peripheral blood pressures are much higher than what cuff pressures reveal given severe peripheral vascular disease
I am unsure how we can accurately assess his true blood pressure, he does not appear to have stigmata of uncontrolled hypertension symptomatically via recent echocardiogram report and stable proteinuria. The patient denies any headache or visual
disturbances
Patient remains completely asymptomatic, if in fact patient was in hypertensive crisis
We can continue Procardia 30 mg twice daily and measure his response symptomatically if he becomes truly
hypotensive
Agree with the MAP 40-45 as set by vascular, wean pressors as able
[id number] a little better at 2.1 post contrast on 07/13, remains nonoliguric
His lisinopril remains on hold for now
Holding kerendia, ACEI, and avoid nephrotoxins
Maintained on torsemide 20 mg daily
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
Discussed with the nursing
-
-
Date of Service: July 17, 2024
CC / HPI / ROS
-
Chief Complaint:
DARELL, CKD
History of Present Illness:
cr down to 2.1, non oliguric with verdugo
BP recorded as 114 systolic, but was in low 80s overnight
Review of Systems:
no cp or sob
no YOU or vision changes
Nonoliguric
Weight is down
Labs
-
Labs:
WBC 5.2 10^3/uL (4.8-10.8) 07/17/24 04:30
RBC 2.74 10^6/uL (4.70-6.10) L 07/17/24 04:30
Hgb 8.8 g/dL (13.0-18.0) L 07/17/24 04:30
Hct 25.6 % (39.0-52.0) L 07/17/24 04:30
Plt Count 60 10^3/uL (130-400) L D 07/17/24 04:30
Sodium 140 mmol/L (135-145) 07/17/24 04:30
Potassium 3.7 mmol/L (3.5-5.1) 07/17/24 04:30
Chloride 107 mmol/L (98-107) 07/17/24 04:30
Carbon Dioxide 25 mmol/L (22-30) 07/17/24 04:30
BUN 60 mg/dl (9-20) H 07/17/24 04:30
Creatinine 2.1 mg/dL (0.7-1.3) H 07/17/24 04:30
eGFR 31.43 07/17/24 04:30
Glucose 80 mg/dl (70-99) 07/17/24 04:30
Calcium 7.8 mg/dl (8.4-10.2) L 07/17/24 04:30
Physical Exam
-
Vital Signs:
Vital Signs
Temp Pulse Resp BP Pulse Ox
98.7 F 58 13 114/52 99
07/17/24 07:00 07/17/24 07:00 07/17/24 07:00 07/17/24 07:00 07/17/24 05:42
Cardiovascular:: Regular rate and rhythm
Respiratory:: Bilateral: CTA (decreased)
Lung Excursion:: Normal
Abdomen:: Nontender and Soft
Extremity Edema:: None: Bilateral:
Verdugo Catheter: Yes
[2024-07-17] MEDS: FOLVITE 0.8 MG PO (09:25)
[2024-07-17] MEDS: NOVOLOG FLEXPEN-HIGH RESISTANCE 1 UNITS SC ×3 (09:25→18:21)
[2024-07-17] MEDS: PLAVIX 75 MG PO (09:26)
[2024-07-17] MEDS: COLACE 100 MG PO ×2 (09:26→20:10)
[2024-07-17] MEDS: FLOMAX 0.4 MG PO (09:26)
[2024-07-17] MEDS: LOPRESSOR 12.5 MG PO ×2 (09:26→21:00)
[2024-07-17] MEDS: LOW STRENGTH ASPIRIN 81 MG PO (09:26)
[2024-07-17] MEDS: PROSCAR 5 MG PO (09:26)
[2024-07-17] MEDS: VITAMIN B-12 1000 MCG PO (09:26)
[2024-07-17] MEDS: SINGULAIR 10 MG PO (09:26)
[2024-07-17] MEDS: FARXIGA 10 MG PO (09:26)
[2024-07-17] MEDS: PROCARDIA XL (EXTENDED RELEASE) 30 MG PO ×2 (09:27→21:03)
[2024-07-17] MEDS: ZETIA 10 MG PO (09:27)
[2024-07-17] MEDS: DEMADEX 20 MG PO (09:34)
[2024-07-17 09:35] LABS: INR 1.08; PT 14.3 Sec (11.4-14.6)
[2024-07-17 09:36] LABS: APTT 32.6 Sec (23.4-35.0); Fibrinogen 402 MG/DL (199-459)
[2024-07-17 09:38] LABS: D-Dimer 1.27 ug/mlFEU (0.00-0.50)
[2024-07-17 10:52] LABS: Folate > 20.0 ng/ml (2.76-20); Vitamin B12 > 1000 pg/ml (239-931)
[2024-07-17 11:48] LABS: Glucose - Point of Care 147 mg/dl (70-99)
--- NOTE | 2024-07-17 14:26 | TRANSFER ---
Report given to 2S RN Crystal, pt transported to [id number] with all belongings in wheelchair by PCT Nirmal.
[2024-07-17 18:10] LABS: Glucose - Point of Care 129 mg/dl (70-99)
[2024-07-17] MEDS: LOPRESSOR PO (20:12)
--- NOTE | 2024-07-17 20:50 | PTCARENOTE ---
Pt MAP 84. order states notify provider for a MAP greater than 65 or less than 45. Vascular customer relations coordinator notified. Pt BP 98/56 Hr 63. advised to give metoprolol.
[2024-07-17 21:29] LABS: Glucose - Point of Care 177 mg/dl (70-99)
[2024-07-17] MEDS: LIPITOR 80 MG PO (22:31)
[2024-07-17] MEDS: DESYREL 50 MG PO (22:31)
[2024-07-17] MEDS: LANTUS 0.15 UNITS SC (22:32)
[2024-07-18] VITALS (7 sets, daily range): BP systolic 82–136; BP diastolic 43–70; PULSE 64; O2SAT 100; BMI 22.1
[2024-07-18 05:54] LABS: Hematocrit 25.2 % (39.0-52.0); Hemoglobin 8.8 g/dL (13.0-18.0); Mean Corp Hgb Conc. 34.9 g/dL (33.0-37.0); Mean Corpuscular Hgb 31.8 pg (27.0-31.0); Platelet Count 85 10^3/uL (130-400); Red Blood Cell Count 2.77 10^6/uL (4.70-6.10); Red Cell Dist. Width 13.5 % (11.5-14.5); White Blood Cell Count 5.6 10^3/uL (4.8-10.8)
[2024-07-18 06:16] LABS: Blood Urea Nitrogen 61 mg/dl (9-20); Calcium 8.2 mg/dl (8.4-10.2); Carbon Dioxide 28 mmol/L (22-30); Chloride 104 mmol/L (98-107); Estimated Creatinine Clearance 30 ml/min; Glucose 75 mg/dl (70-99); Potassium 3.4 mmol/L (3.5-5.1); Sodium 138 mmol/L (135-145); eGFR 35.44
[2024-07-18 08:10] LABS: Glucose - Point of Care 73 mg/dl (70-99)
[2024-07-18] MEDS: VITAMIN B-12 1000 MCG PO (08:53)
[2024-07-18] MEDS: FLOMAX 0.4 MG PO (08:53)
[2024-07-18] MEDS: NOVOLOG FLEXPEN-HIGH RESISTANCE 1 UNITS SC ×2 (08:53→13:49)
[2024-07-18] MEDS: PROSCAR 5 MG PO (08:53)
[2024-07-18] MEDS: DEMADEX 20 MG PO (08:53)
[2024-07-18] MEDS: FARXIGA 10 MG PO (08:53)
[2024-07-18] MEDS: FOLVITE 0.8 MG PO (08:54)
[2024-07-18] MEDS: PROCARDIA XL (EXTENDED RELEASE) 30 MG PO ×2 (08:54→20:52)
[2024-07-18] MEDS: LOW STRENGTH ASPIRIN 81 MG PO (08:54)
[2024-07-18] MEDS: PLAVIX 75 MG PO (08:55)
[2024-07-18] MEDS: COLACE 100 MG PO ×2 (08:55→20:52)
[2024-07-18] MEDS: LOPRESSOR 12.5 MG PO ×2 (08:55→20:52)
[2024-07-18] MEDS: SINGULAIR 10 MG PO (08:56)
[2024-07-18] MEDS: ZETIA 10 MG PO (08:56)
--- NOTE | 2024-07-18 10:32 | W.PN.NEPH.PH ---
Today's Communication / Plan
-
Observe
Follow BMP
Hemodynamically stay
Assessment/Plan
-
IMP:
Darell with CKD 4-last cr 1.8 in October 2023
Mild metabolic acidosis-lactic acid
Mild hyperkalemia resolved
Extensive diffuse severe peripheral arterial disease status post left common femoral/profunda endarterectomies 07/13/2024
Hypotension in extremities due to b/l subclavian stenosis with claudication
Leukocytosis
Acute blood loss on chronic disease anemia
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
Perioperative mechanical ventilation
h/o Status post R carotid endarterectomy 04/30/2022
History of hypertension
Hyperlipidemia
BPH
JAQUELIN on BIPAP
Coronary artery disease with history of CABG (2015)
LAD stent in September 2021
Nephrolithiasis
AAA
hiatal hernia
PLan:
A/w elective left femoral endarterectomy on 07/13
Hypotension difficult to accurately have readings in the upper extremities with the severe PAD
Vascular is concerned that his peripheral blood pressures are much higher than what cuff pressures reveal given severe peripheral vascular disease
I am unsure how we can accurately assess his true blood pressure, he does not appear to have stigmata of uncontrolled hypertension symptomatically via recent echocardiogram report and stable proteinuria. The patient denies any headache or visual
disturbances
Patient remains completely asymptomatic, if in fact patient was in hypertensive crisis
We can continue Procardia 30 mg twice daily and measure his response symptomatically if he becomes truly
hypotensive
Agree with the MAP 40-45 as set by vascular, wean pressors as able
[id number] a little better at 1.9 post contrast on 07/13, remains nonoliguric
His lisinopril remains on hold for now
Holding kerendia, ACEI, and avoid nephrotoxins
Maintained on torsemide 20 mg daily
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
Stable for discharge from renal perspective
-
-
Date of Service: July 18, 2024
CC / HPI / ROS
-
Chief Complaint:
DARELL, CKD
History of Present Illness:
cr down to 1.9, non oliguric with verdugo
BP recorded as 120 systolic
Review of Systems:
no cp or sob
no YOU or vision changes
Nonoliguric
Weight is down
Labs
-
Labs:
WBC 5.6 10^3/uL (4.8-10.8) 07/18/24 04:53
RBC 2.77 10^6/uL (4.70-6.10) L 07/18/24 04:53
Hgb 8.8 g/dL (13.0-18.0) L 07/18/24 04:53
Hct 25.2 % (39.0-52.0) L 07/18/24 04:53
Plt Count 85 10^3/uL (130-400) L D 07/18/24 04:53
Sodium 138 mmol/L (135-145) 07/18/24 04:53
Potassium 3.4 mmol/L (3.5-5.1) L 07/18/24 04:53
Chloride 104 mmol/L (98-107) 07/18/24 04:53
Carbon Dioxide 28 mmol/L (22-30) 07/18/24 04:53
BUN 61 mg/dl (9-20) H 07/18/24 04:53
Creatinine 1.9 mg/dL (0.7-1.3) H 07/18/24 04:53
eGFR 35.44 07/18/24 04:53
Glucose 75 mg/dl (70-99) 07/18/24 04:53
Calcium 8.2 mg/dl (8.4-10.2) L 07/18/24 04:53
Physical Exam
-
Vital Signs:
Vital Signs
Temp Pulse Resp BP Pulse Ox
97.9 F 64 16 120/70 94
07/18/24 07:35 07/18/24 08:55 07/18/24 07:35 07/18/24 08:55 07/18/24 08:53
Cardiovascular:: Regular rate and rhythm
Respiratory:: Bilateral: CTA (decreased)
Lung Excursion:: Normal
Abdomen:: Nontender and Soft
Extremity Edema:: None: Bilateral:
Verdugo Catheter: Yes
--- NOTE | 2024-07-18 10:45 | W.PN.VS ---
Today's Communication / Plan
-
See plan below for today 07/18/2024.
Assessment/Plan
-
s/p Left common femoral endarterectomy and profunda femoral artery endarterectomy with patch angioplasty using bovine pericardium
Introduce wire/catheter into aorta from right common femoral artery access
Intravascular lithotripsy to right common iliac artery occlusion using shockwave javelin catheter and 9 mm L6 balloon
Balloon angioplasty to right common iliac artery (4 mm, 5 mm, 6 mm angioplasty balloons)
Plan:
-Hemoglobin stable.
� PT/OT/placement likely this week.
� Continue drain for another 24 hours. If drainage decreases/continues to lower as it appears to be trending towards, potentially discontinue tomorrow prior to placement).
-
Total Time Spent with Patient (in minutes): 10
Subjective Data
-
Date of Service: July 18, 2024
Patient without significant complaints this morning. Sitting up comfortably in a chair when I saw him.
Objective Data
-
Vital Signs
Temp Pulse Resp BP Pulse Ox
97.9 F 64 16 120/70 94
07/18/24 07:35 07/18/24 08:55 07/18/24 07:35 07/18/24 08:55 07/18/24 08:53
Intake and Output
07/17/24 07/18/24 07/19/24
06:59 06:59 06:59
Intake Total 620 / 620 1440 / 1440 320 / 320
Output Total 810 / 810 350 / 350 20 / 20
Balance -190 / -190 1090 / 1090 300 / 300
Intake:
Oral fluids 620 / 620 1440 / 1440 320 / 320
Output:
Drain Output (Total) / 100 / 100 20 / 20
Left Pelvis Mateo-Goetz / 85 100 / 100 20 / 20
Urine, Voided 725 / 725 250 / 250
Other:
Number of approximated MODERATE 1 2 1
amounts of urine
How many times incontinent 1
SMALL amount urine
Lab Results
07/18/24 04:53
07/18/24 04:53
Calcium 8.2 mg/dl (8.4-10.2) L 07/18/24 04:53
Magnesium 2.3 mg/dl (1.6-2.3) 07/15/24 03:14
Physical Exam
-
Afebrile.
Awake and alert.
Abdomen soft, nondistended, nontender.
Groins flat bilaterally. Left groin incision clean dry and intact.
Left CHIO serosanguineous. Drainage as noted in recordings (20 cc last drainage since this morning, 50 cc overnight).
Feet both warm.
Labs reviewed. Hemoglobin stable.
[2024-07-18 12:19] LABS: Glucose - Point of Care 114 mg/dl (70-99)
[2024-07-18 17:27] LABS: Glucose - Point of Care 159 mg/dl (70-99)
[2024-07-18] MEDS: NOVOLOG FLEXPEN-HIGH RESISTANCE 2 UNITS SC (17:31)
--- NOTE | 2024-07-18 19:32 | PTCARENOTE ---
HIT 0.06 negative TT to 5000
[2024-07-18 22:01] LABS: Glucose - Point of Care 167 mg/dl (70-99)
[2024-07-18] MEDS: DESYREL 50 MG PO (22:09)
[2024-07-18] MEDS: LIPITOR 80 MG PO (22:09)
[2024-07-18] MEDS: LANTUS 0.15 UNITS SC (22:09)
[2024-07-18] MEDS: SENOKOT 8.6 MG PO (22:09)
[2024-07-19 03:05] VITALS: BP 91/54
[2024-07-19 06:00] VITALS: BMI 22.1
[2024-07-19 06:30] LABS: Hemoglobin 9.1 g/dL (13.0-18.0); Mean Corp Hgb Conc. 33.7 g/dL (33.0-37.0); Mean Corpuscular Volume 91.8 fL (80.0-94.0); Mean Platelet Volume 10.1 fL (7.4-10.4); Platelet Count 105 10^3/uL (130-400); Red Blood Cell Count 2.94 10^6/uL (4.70-6.10); Red Cell Dist. Width 13.6 % (11.5-14.5); White Blood Cell Count 6.3 10^3/uL (4.8-10.8)
[2024-07-19 06:46] LABS: Blood Urea Nitrogen 61 mg/dl (9-20); Calcium 7.9 mg/dl (8.4-10.2); Carbon Dioxide 27 mmol/L (22-30); Chloride 102 mmol/L (98-107); Estimated Creatinine Clearance 28 ml/min; Glucose 89 mg/dl (70-99); Potassium 3.6 mmol/L (3.5-5.1); Sodium 137 mmol/L (135-145); Triglycerides 200 mg/dl (10-149); eGFR 33.32
[2024-07-19 07:14] VITALS: BP 127/92
[2024-07-19 07:51] VITALS: BP 113/60
--- NOTE | 2024-07-19 07:51 | PN.DE.MGMTRT ---
Insulin Management
- -
07/19/2024: Diabetes Management F/U:
Patient admitted 07/13 for Vascular procedure. PMH CAD, CABG 2015, LAD stent 2021, diabetes, CKD III, AAA, BPH, nephrolithiasis, UTI, PAD, PVD, HTN. Prior to admission was taking Ozempic 1 mg on Friday. He did take his Ozempic 07/11. A1C on admission
6.5%, cr 2.3, eGFR 28.18.
Patient is awake alert, oriented, sitting up in chair, offers no complaints. Able to discuss diabetes management.
07/18 premeal glucose stable and in range, 73 to 159, HS glucose 167. FBG 89 (V).
Will reduce HS Lantus to 7 units. Cont Farxiga 10 mg and high corrective with meals.
PLEASE HOLD HS Lantus if glucose is less than 150 and continue high corrective insulin.
D/C Meds: Farxiga 10 mg and Ozempic. STOP Lantus at discharge.
Discussed post d/c plan of management and instructed to resume Ozempic upon d/c home.
Will continue to follow.
Diabetes History
- -
Type of Diabetes: 2
Pre-Admission Diabetes Regimen
07/19/24
05:19
Creatinine 2.0 H
Lab Results
Hemoglobin A1c 6.5 % (4.0-5.6) H 07/13/24 11:27
Insulin Pump Settings
IP Diabetes Regimen
07/18/24 07/18/24 07/18/24
08:01 12:18 17:22
Glucose
POC Glucose 73 114 H 159 H
07/18/24 07/19/24
21:58 05:19
Glucose 89
POC Glucose 167 H
Meal type: Dinner
Meal type: Breakfast
Amount consumed: 85%
Amount consumed: 100%
Patient Education
[2024-07-19] MEDS: PLAVIX 75 MG PO (07:53)
[2024-07-19] MEDS: PROCARDIA XL (EXTENDED RELEASE) 30 MG PO (07:53)
[2024-07-19] MEDS: FLOMAX 0.4 MG PO (07:53)
[2024-07-19] MEDS: FARXIGA 10 MG PO (07:53)
[2024-07-19] MEDS: DEMADEX 20 MG PO (07:53)
[2024-07-19] MEDS: FOLVITE 0.8 MG PO (07:53)
[2024-07-19] MEDS: LOPRESSOR 12.5 MG PO (07:53)
[2024-07-19] MEDS: ZETIA 10 MG PO (07:53)
[2024-07-19] MEDS: SINGULAIR 10 MG PO (07:53)
[2024-07-19] MEDS: LOW STRENGTH ASPIRIN 81 MG PO (07:53)
[2024-07-19] MEDS: VITAMIN B-12 1000 MCG PO (07:53)
[2024-07-19] MEDS: COLACE 100 MG PO (07:53)
[2024-07-19] MEDS: PROSCAR 5 MG PO (07:53)
[2024-07-19 08:08] VITALS: BMI 22.0
[2024-07-19 08:15] LABS: Glucose - Point of Care 87 mg/dl (70-99)
--- NOTE | 2024-07-19 08:16 | PTCARENOTE ---
BP 113/60, MAP 78, HR 60. All medications given as ordered this AM. Neurovascular check unchanged.
[2024-07-19] MEDS: NOVOLOG FLEXPEN-HIGH RESISTANCE SC (08:18)
--- NOTE | 2024-07-19 08:48 | W.PN.ONC2 ---
Today's Communication / Plan
-
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
Impression
Impression
acute thrombocytopenia post-operatively -platelets continue to improve to 105k today
acute on chronic anemia likely intra/post operative blood loss s/p 4 unit prbc during hospitalization, last 07/15 -Hgb stable 9.1g/dL
Plan
Plan
monitor for infection, currently leukocytosis resolved and remains afebrile
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 Prophylaxis dosing is 2.5 mg Q24h.
no B12, folate deficiency. No acute DIC
monitor for bleeding
Subjective/Objective
Subjective
no new complaints
Vital Signs:
Vital Signs
Temp Pulse Resp BP Pulse Ox
97.8 F 60 17 113/60 99
07/19/24 07:14 07/19/24 07:51 07/19/24 07:14 07/19/24 07:51 07/19/24 07:14
Lab Results:
Laboratory Data
WBC 6.3 10^3/uL (4.8-10.8) 07/19/24 05:19
Hgb 9.1 g/dL (13.0-18.0) L 07/19/24 05:19
Plt Count 105 10^3/uL (130-400) L D 07/19/24 05:19
PT 14.3 Sec (11.4-14.6) 07/17/24 09:16
INR 1.08 07/17/24 09:16
APTT 32.6 Sec (23.4-35.0) 07/17/24 09:16
eGFR 33.32 07/19/24 05:19
Physical Exam
General: No Apparent Distress
HEENT: Moist Mucous Membranes; Negative Jaundice
Cardiology: Normal Sinus Rhythm
Pulmonary: Clear
GI: Soft
Extremities: Edema
Neurology: Non Focal
Skin: Warm and Other (left groin site with CDI, no hematoma)
Psych: Calm
--- NOTE | 2024-07-19 09:26 | W.PN.VS ---
Addendum entered and electronically signed by Siva Otto III, MD 07/19/24 11:51:
This patient was seen and examined with ESTRELLA Snyder and ESTRELLA Kaufman. I agree with the history and physical exam as well as the assessment and plan. I have the following additions:
Wound clean and dry
Drain output has decreased significantly over the weekend
Continue PT
BP better controlled. Appreciate cardiology assistance
Working on discharge
Signed:
Siva Otto III, MD
[facility] Surgery
[phone] (cell)
Original Note:
Today's Communication / Plan
-
Patient seen and examined at bedside with Dr. Siva Otto III, below plan reviewed with attending.
Assessment/Plan
-
s/p Left common femoral endarterectomy and profunda femoral artery endarterectomy with patch angioplasty using bovine pericardium
Introduce wire/catheter into aorta from right common femoral artery access
Intravascular lithotripsy to right common iliac artery occlusion using shockwave javelin catheter and 9 mm L6 balloon
Balloon angioplasty to right common iliac artery (4 mm, 5 mm, 6 mm angioplasty balloons)
Plan:
-Hemoglobin stable remains stable and platelet continue to improve, appreciate hematology recommendations, was unable to order fondaparinux for DVT prophylaxis because of CKD
- Appreciate nephrology and cardiology recommendations addition of PO Procardia resulting in improved BP control
� OOB/ambulate, PT/OT recommendations of home health
� Patient currently in chair eating breakfast and requested this provider to come back to discontinue LLE CHIO drain, this provider will return to discontinue drain prior to dc
- Continue to encourage incentive spirometry
- Stable for discharge home
Subjective Data
-
Date of Service: July 19, 2024
Patient seen and examined chairside, offers no complaints. Tolerating PO diet. Reports adequate post operative pain management and eagerness for dc to home when eligible.
Objective Data
-
Vital Signs
Temp Pulse Resp BP Pulse Ox
97.8 F 60 17 113/60 99
07/19/24 07:14 07/19/24 07:51 07/19/24 07:14 07/19/24 07:51 07/19/24 07:14
Intake and Output
07/18/24 07/19/24 07/20/24
06:59 06:59 06:59
Intake Total 1440 / 1440 1040 / 1040 600 / 600
Output Total 350 / 350 75 / 75 30 / 30
Balance 1090 / 1090 965 / 965 570 / 570
Intake:
Oral fluids 1440 / 1440 1040 / 1040 600 / 600
Output:
Drain Output (Total) 100 / 100 75 / 75 30 / 30
Left Pelvis Mateo-Goetz 100 / 100 75 / 75 30 / 30
Urine, Voided 250 / 250
Other:
Number of approximated MODERATE 2 3 3
amounts of urine
How many times incontinent 1
SMALL amount urine
Lab Results
07/19/24 05:19
07/19/24 05:19
Calcium 7.9 mg/dl (8.4-10.2) L 07/19/24 05:19
Magnesium 2.3 mg/dl (1.6-2.3) 07/15/24 03:14
Physical Exam
-
AAOx3
No tachypnea on room air
No tachycardia
Arm BP cuff correlate to about 100-125 lower than actual blood pressure due to bilateral subclavian occlusions
Abdomen soft throughout, flat
Left groin dg CDI and well-approximated, no evidence of hematoma, left groin CHIO drain with serosanguineous output
Right groin puncture site CDI, no evidence of hematoma
Bilateral feet warm, pink
[2024-07-19 10:05] VITALS: BP 81/48
--- NOTE | 2024-07-19 10:06 | PTCARENOTE ---
BP rechecked after med pass, 81/48, MAP 59, HR 59.
--- NOTE | 2024-07-19 11:00 | W.PN.UPDATE ---
Update Note
Progress Note Update
Removed left anterior thigh drain without difficulty, site CDI.
--- NOTE | 2024-07-19 11:05 | CM ---
Addendum entered by Kasey Vázquez RN 07/19/24 11:48:
IMM reviewed. Patient's grandson Myke updated and TT sent at request of grandson for call back from vascular. Patient's grandson to provide transportation.
Original Note:
Reviewed the chart notes and spoke with the patient at the bedside. Received voice message from [facility] about a SNF requesting for [place] (rm [phone]). They are offering a P2P for the request. The phone # for the P2P is [phone] option 5.
The deadline is 12:30 today. TT to medical communication specialist. PT recommending home health. Reviewer does feel patient is appropriate for home health at this time. Discussed with the patient. Patient agreeable to VN services. Patient has had [facility] in
the past and requested that they follow the patient at discharge. Referral sent via [facility]. CM continues to be available to patient/family and is monitoring medical plan for needs at discharge.
Plan: Discharge to home with [facility] services.
[2024-07-19 11:20] VITALS: BP 84/51
--- NOTE | 2024-07-19 11:57 | PTCARENOTE ---
BP 84/51, MAP 62, HR 60. NV unchanged.
[2024-07-19 12:00] LABS: Glucose - Point of Care 140 mg/dl (70-99)
[2024-07-19] MEDS: NOVOLOG FLEXPEN-HIGH RESISTANCE 1 UNITS SC ×2 (12:03→17:22)
--- NOTE | 2024-07-19 12:17 | W.DS.TRANS ---
DC Summary - Occupational Health Coordinator
-
Discharge Instructions:
Discharge Diagnosis/Procedures Left common femoral endarterectomy and profunda
femoral artery endarterectomy with patch
angioplasty using bovine pericardium
Intravascular lithotripsy to right common iliac
artery occlusion using shockwave javelin
catheter and 9 mm L6 balloon
Balloon angioplasty to right common iliac artery
(4 mm, 5 mm, 6 mm angioplasty balloons)
Diet As tolerated
Activity No strenuous activity
Driving Restrictions Not until seen by your Dr
Bathing Restrictions OK to Shower
Other Services VN
Wound Care Please remove your left thigh dressing tomorrow
(07/20/2023), this was at the site of your remove
drain; you may have continued drainage from
this site for a few days this is to be expected.
You can continue to cover the site with a gauze
pad and secure with tape. Change this dressing
daily or as needed if wet/soiled. If there is no
drainage you may keep it open to air. For your
left surgical incision dg/sutures you may
keep open to air. Please ensure it remains dry.
If you notice any redness or increased drainage
and or fever/chills please call our office.
Instructions:
Stand-Alone Forms: DC Instr - Vascular OR
Changes to Home Medications: Yes
Discharge Medications:
DC Medications w/original date entered in Submittable
aspirin 81 mg chewable tablet 81 mg PO DAILY Blood clot prevention/tx 02/02/22
atorvastatin 80 mg tablet 80 mg PO HS High cholesterol 02/02/22
clopidogrel 75 mg tablet (Plavix) 75 mg PO DAILY Blood clot prevention/tx 02/02/22
ezetimibe 10 mg tablet (Zetia) 10 mg PO DAILY High cholesterol 02/02/22
montelukast 10 mg tablet 10 mg PO DAILY Allergies 02/02/22
trazodone 50 mg tablet 50 mg PO HS Sleep 02/02/22
folic acid 0.8 mg capsule 800 mcg PO DAILY Supplement 02/27/22
tamsulosin 0.4 mg capsule 0.4 mg PO DAILY Urinary Issue 04/30/22
semaglutide 1 mg/dose (4 mg/3 mL) subcutaneous pen injector (Ozempic) 1 mg SC [place] Diabetes 07/14/22
torsemide 20 mg tablet 20 mg PO DAILY #30 tabs 07/21/22
docusate sodium 100 mg capsule (Colace) 100 mg PO BID Constipation 07/08/24
ergocalciferol (vitamin D2) 1,250 mcg (50,000 unit) capsule (Vitamin D2) 1,250 mcg PO QMONTH Supplement 07/08/24
finasteride 5 mg tablet 5 mg PO DAILY Urinary Issue 07/08/24
finerenone 10 mg tablet (Kerendia) 10 mg PO DAILY Kidney Disease 07/08/24
mecobalamin (vitamin B12) 1,000 mcg chewable tablet (B12 Active) 1,000 mcg PO DAILY Supplement 07/08/24
metoprolol tartrate 25 mg tablet 12.5 mg PO BID Blood Pressure 07/08/24
mineral oil-isopropyl myristat lotion 1 applic topical BID Skin Issues 07/08/24
omega [id number] oil 1,200 mg (144 mg-216 mg) capsule (Fish Oil) 1 cap PO DAILY Supplement 07/08/24
potassium chloride 20 mEq tablet,extended release(part/cryst) (Klor-Con M) 20 meq PO Q48H Electrolyte Repletion 07/08/24
dapagliflozin propanediol 10 mg tablet 10 mg PO DAILY #90 tabs 07/19/24
nifedipine 30 mg tablet,extended release 30 mg PO BID #180 tabs 07/19/24
Home Medication Changes
DC:
steroid and benadryl and lisinopril
Added:
dapagliflozin propanediol 10 mg tablet 10 mg PO DAILY #90 tabs 07/19/24
nifedipine 30 mg tablet,extended release 30 mg PO BID #180 tabs 07/19/24
Pending Results: No
[2024-07-19 16:36] VITALS: BP 88/52
[2024-07-19 17:14] LABS: Glucose - Point of Care 140 mg/dl (70-99)
[2024-07-20 17:24] LABS: Hepatitis B Surface Antigen Negative (Negative)
[2024-07-20 17:41] LABS: Hepatitis B Surface Antibody Negative
== END 2024-07-19 19:00 | disposition home health service (06) | DRG 271 ==
LOC: 2 SOUTH 09:56
PROVIDERS: Anesthesiology; Nurse Practitioner; Nurse Practitioner Acute Care; Nurse Practitioner Primary Care; Specialist; ADMITTING PHYSICIAN Surgery Vascular Surgery; CONSULT PHYSICIAN Internal Medicine; CONSULT PHYSICIAN Internal Medicine Cardiovascular Disease; CONSULT PHYSICIAN Internal Medicine Hematology & Oncology; FAMILY PHYSICIAN Family Medicine
PROC: 047D3ZZ Dilation of Left Common Iliac Artery, Percutaneous Approach (ICD-10-PCS; 2024-07-13)
PROC: 04FL3ZZ Fragmentation of Left Femoral Artery, Percutaneous Approach (ICD-10-PCS; 2024-07-13)
PROC: 047L3ZZ Dilation of Left Femoral Artery, Percutaneous Approach (ICD-10-PCS; 2024-07-13)
PROC: 04CL3ZZ Extirpation of Matter from Left Femoral Artery, Percutaneous Approach (ICD-10-PCS; 2024-07-13)
PROC: 04UL3KZ Supplement Left Femoral Artery with Nonautologous Tissue Substitute, Percutaneous Approach (ICD-10-PCS; 2024-07-13)
PROC: 30233N1 Transfusion of Nonautologous Red Blood Cells into Peripheral Vein, Percutaneous Approach (ICD-10-PCS; 2024-07-13)
DX: E11.51 Type 2 diabetes mellitus with diabetic peripheral angiopathy without gangrene (principal); D62 Acute posthemorrhagic anemia; E87.20 Acidosis, unspecified; I13.0 Hypertensive heart and chronic kidney disease with heart failure and stage 1 through stage 4 chronic kidney disease, or unspecified chronic kidney disease; I50.32 Chronic diastolic (congestive) heart failure; N18.4 Chronic kidney disease, stage 4 (severe); N17.9 Acute kidney failure, unspecified; E11.65 Type 2 diabetes mellitus with hyperglycemia; I70.222 Atherosclerosis of native arteries of extremities with rest pain, left leg; E11.22 Type 2 diabetes mellitus with diabetic chronic kidney disease; E87.5 Hyperkalemia; E78.00 Pure hypercholesterolemia, unspecified; N40.0 Benign prostatic hyperplasia without lower urinary tract symptoms; G47.33 Obstructive sleep apnea (adult) (pediatric); I25.10 Atherosclerotic heart disease of native coronary artery without angina pectoris; I74.5 Embolism and thrombosis of iliac artery; Z79.82 Long term (current) use of aspirin; Z79.4 Long term (current) use of insulin; Z79.02 Long term (current) use of antithrombotics/antiplatelets
CPT/HCPCS: 88304; 88311; 35371; 36415; 71045; 71046; 74176; 75710; 80048; 81003; 81015; 82607; 82728; 82746; 82805; 82962; 83036; 83605; 83735; 84478; 85014; 85018; 85025; 85027; 85379; 85384; 85610; 85730; 86022; 86706; 86850; 86900; 86901; 86920; 87070; 87086; 87340; 93005; 93880; 93923; 93930; 94002; 94003; 94660; 97116; 97163; 97166; 97530; C1725; C1769; C1887; C1894; C9764; P9016; P9045; Q9967

== ENCOUNTER 2024-07-26 10:29 | Inpatient (IN) | payer OTHER, SELFPAY ==
[2024-07-25] VITALS (7 sets, daily range): BP systolic 93–134; BP diastolic 53–73; BMI 21.1
--- NOTE | 2024-07-25 15:50 | ED.GENMED ---
History of Present Illness
General
Chief Complaint: DVT/Possible Blood Clot
Source: patient and family (grandson at bedside)
Exam Limitations: none
Time Seen by Provider: 07/25/24 15:32
Nursing documentation reviewed up to this point in time: agreed with
History of Present Illness
History of Present Illness:
78 yo male w h/o NIDDM, Nephrotic syndrom, Carotid stenosis, HTN, HLD, Pacemaker, PAD, here for left leg redness and swelling, pain is minimal.
Pt admitted 07/13 - 07/19 for calcified aortoiliac occlusive disease, diffusely calcified left lower extremity peripheral arterial occlusive disease, chronic limb threatening ischemia with rest pain of left foot
Had left common femoral endarterectomy and profundo femoral artery endarterectomy with patch angioplasty, R common iliac artery balloon angioplasty, had CHIO drain anterior left thigh removed, dressing dry.
Pt denies SOB, CP, fever/chills. Denies n/v. Denies abdominal pain. Nilda in left groin intact no drainage or significant redness or pain
Past History
Past History
ED Past Medical History: CAD, HTN, Hypercholesterolemia and Other (Vascular disease. Renal insufficiency., Subclavian stenosis, diabetes, BPH, CAD, CHF, hypertension, JAQUELIN)
ED Past Surgical History: Cardiac and Other (CEA, femoral stents)
Social History
Tobacco: Former smoker
Living: alone (Independent living)
Employment: Retired
Family History
Family History: Negative Early CAD
Review of Systems
Review of Systems
Allergies reviewed?: Yes
Other source history: family
All Other Systems: ROS reviewed and negative except as documented in HPI and ROS
Constitutional: Denies fever
Respiratory: Denies trouble breathing
Cardiac: Denies chest pain
ABD/GI: Denies abdominal pain, nausea, vomiting or diarrhea
: Denies difficulty voiding
Musculoskeletal: Reports edema (LLE)
Skin: Reports other (Dry dressing over left anterior thigh CHIO drain site. [place] intact left groin. Swelling, redness, LLE. )
Neurological: Reports no symptoms
Phy Exam
Physical Exam
Physical Exam:
GENERAL: No acute distress. A&Ox3.
CONSTITUTIONAL: Afebrile.
EYES: clear, conjunctivae normal
ENMT: moist mucus membranes, Pharynx nl
RESPIRATORY: Regular respirations, nonlabored, lungs clear.
CARDIOVASCULAR: Regular rate and rhythm, no murmurs, no rubs.
GI: Soft, nontender, normal BS
MUSCULOSKELETAL: Moves with ease. Well perfused.
SKIN: Warm, dry, pink. Nilda intact left groin, mild local erythema no drainage, surrounding skin is normal. Dry dressing anterior left thigh at site of previous CHIO drain. Left leg is +2 swollen compared to R. Erythema from just below knee to
ankle. Tiny open area mid hirsch with small amount serosanguineous drainage. Foot warm, pale.
PSYCH: Normal mood and affect. Well kept, interactive and appropriate
NEUROLOGIC: Awake, alert and oriented. No focal neurological deficits
Course
Orders/Labs/Results
Orders:
Orders
07/25/24 Dinner
1800 calorie (15 carb) Diabetic
At Your Request: Full Participation
Does patient need a safe tray?: No
07/25/24 15:46
US Periph Venous LOWER Ext LT Urgent
Comment:
Reason For Exam: swelling, redness
07/25/24 18:13
Heparin 5,500 units IV NOW STA
Pharmacy Request to Place See Dose Instructions PO NOW STA
Discontinue all Active Warfarin orders?: Yes
07/25/24 18:15
Heparin 24798 Units/250 ml 25,000 units in 250 ml IV PER PROTOCOL
Weight to be used for heparin protocol in kilograms (kg):: 69
Protocol:: DVT/PE
PTT Goal Range to be used:: PTT 73 to 111 seconds
Order type:: Initial
INITIAL Infusion Dose (UNITS/KG/hr) & then follow protocol:: 18 units/kg/hr
Infusion Dose in UNITS/hr & then follow protocol (UNITS/hr):: 1,200
INFUSION RATE in mL/hr & then follow protocol (mL/hr):: 12
For DVT/PE algorithm, re-bolus for low PTT?: No
PTT less than or equal to 64 seconds:: No Re-bolus. Increase by 300 units/hr (+ 3mL/hr)
PTT 64.1 to 72.9 seconds:: No Re-bolus. Increase by 100 units/hr (+ 1mL/hr)
PTT 73 to 111 seconds:: Target Range. No change in rate.
PTT 111.1 to 130.9 seconds:: Decrease rate by 100 units/hr (- 1 mL/hr)
PTT 131 to 199.9 seconds:: HOLD for 1 hr. Then decrease by 200 units/hr (- 2mL/hr)
PTT greater than or equal to 200 seconds:: HOLD for 2 hrs & Notify Provider. Then decrease by 300 units/hr
(- 3mL/hr)
Lab follow-up:: Each change, PTT q6h until 2 consecutive are therapeutic. Then
PTT daily.
07/25/24 19:[address] See Dose Instructions IV DIRECTED
07/25/24 19:02
Complete Blood Count/With Diff Urgent
Comprehensive Metabolic Panel Urgent
Protime/PTT Urgent
07/25/24 19:11
Ampicillin/Sulbactam 3 G [Unasyn] 3 gm 0.9% Sodium Chloride 100 ml [Nss] 100 ml IV NOW
07/25/24 19:18
Admit/Transfer Patient As Directed
Co-Sign Provider:
Level of Care: Observation services
Assign to:: Medical/Surgical
Physician / Group: hospitalist
Diagnosis: DVT
07/25/24 19:19
PRN Pain Medication Management As Directed
May give lesser potent ordered pain med per pt: Yes
preference::
Protocol:: Medication orders for pain may be administered in a
manner that supports deferring to patient preference
when the pt is:
- Requesting an ordered lesser potent pain medication.
Least to most potent pain medications are defined
as: acetaminophen < NSAID < tramadol < opioids
(morphine, oxycodone, hydromorphone).
- Requesting a lesser dose of the same medication IF
ORDERED.
- Requesting a less intrusive route of administration
if both routes are prescribed by the provider (PO <
IV).
07/25/24 19:23
Code Status As Directed
Resuscitation Status: Full Code
07/25/24 20:47
Acetaminophen [Tylenol] 650 mg PO Q4HPRN PRN
Apixaban [Eliquis] 10 mg PO BID
Bisacodyl [Dulcolax] 10 mg RECTAL Q74LQOP PRN
Docusate W/Senna [Senokot-S] 1 tablet PO BIDPRN PRN
Metoprolol [Lopressor] 12.5 mg PO BID
Polyethylene Glycol Powder [Miralax] 17 grams PO DAILYPRN PRN
Saccharomyces Boulardii [Florastor] 250 mg PO BID
Tramadol HCl [Ultram] 50 mg PO Q6HPRN PRN
VANCOMYCIN Pharmacy to Dose [VANCOCIN Pharmacy to Dose] 1 each Pharmacy To Prepare [Call Pharmacy To Prepare] 0 ml IV PER PROTOCOL
Vancomycin [Vancocin] 1,500 mg 0.9% Sodium Chloride 500 ml [Nss] 500 ml IV NOW
07/25/24 20:47
VTE Contraindication Routine
VTE Mechanical Device Contraindication: DVT lower extremity
Pharmocologic Contraindication: Medical Contraindication
Activity As Directed
Activity Level: With Assistance
Bedside Glucose Monitoring As Directed
Frequency: AC&HS
Vital Signs As Directed
Frequency: Per unit guidelines
07/25/24 22:00
Atorvastatin [Lipitor] 80 mg PO HS
Trazodone [Desyrel] 50 mg PO HS
07/26/24 06:00
Basic Metabolic Panel IN AM
Complete Blood Count/No Diff IN AM
Magnesium IN AM
07/26/24 07:30
Insulin Aspart Corrective Low [Novolog Flexpen-Low Resistance] See Protocol SC AC
07/26/24 08:00
Aspirin Low Dose EC [Aspir Low (Enteric Coated)] 81 mg PO DAILY
Clopidogrel Bisulfate [Plavix] 75 mg PO DAILY
Dapagliflozin [Farxiga] 10 mg PO DAILY
Ezetimibe [Zetia] 10 mg PO DAILY
Finasteride [Proscar] 5 mg PO DAILY
Tamsulosin [Flomax] 0.4 mg PO DAILY
Torsemide [Demadex] 20 mg PO DAILY
07/26/24 18:00
Montelukast Sodium [Singulair] 10 mg PO QPM
Abnormal Lab Results
07/25/24
19:02
RBC 3.09 L 10^6/uL
(4.70-6.10)
Hgb 9.7 L g/dL
(13.0-18.0)
Hct 28.6 L %
(39.0-52.0)
MCH 31.4 H pg
(27.0-31.0)
Absolute Neuts (auto) 6.6 H 10^3/uL
(1.4-6.5)
Absolute Lymphs (auto) 0.7 L 10^3/uL
(1.2-3.4)
Neutrophils % 83.3 H %
(42.2-75.2)
Lymphocytes % 8.3 L %
(20.5-51.1)
BUN 49 H mg/dl
(9-20)
Creatinine 2.3 H mg/dL
(0.7-1.3)
Glucose 158 H mg/dl
(70-99)
Total Protein 6.1 L g/dl
(6.3-8.2)
07/25/24 19:02
07/25/24 19:02
Vital Signs
Initial and Last Documented VS:
Initial Vital Signs
Temp Pulse Resp BP Pulse Ox
98.2 F 67 20 93/53 95
07/25/24 15:15 07/25/24 15:15 07/25/24 15:15 07/25/24 15:15 07/25/24 15:15
Last Documented Vital Signs
Temp Pulse Resp BP Pulse Ox
98.1 F 78 18 108/66 99
07/25/24 20:46 07/25/24 20:46 07/25/24 20:46 07/25/24 20:46 07/25/24 20:46
MDM/Problems Addressed
Differential Diagnosis Includes:
DVT, Cellulitis
MDM/Problems Addressed:
78 yo male w h/o NIDDM, Nephrotic syndrome, Carotid stenosis, HTN, HLD, Pacemaker, PAD, here for left leg redness and swelling, pain is minimal.
Pt admitted 07/13 - 07/19 for calcified aortoiliac occlusive disease, diffusely calcified left lower extremity peripheral arterial occlusive disease, chronic limb threatening ischemia with rest pain of left foot
Had left common femoral endarterectomy and profundo femoral artery endarterectomy with patch angioplasty, R common iliac artery balloon angioplasty, had CHIO drain anterior left thigh removed, dressing dry.
Pt denies SOB, CP, fever/chills. Denies n/v. Denies abdominal pain. Nilda in left groin intact no drainage or significant redness or pain
Afebrile, NAD
6:00 p.m.
US report texted from Radiologist: non-occlusive DVT in the left common femoral vein and sapheno femoral junction
Plan: Admit: Cellulitis left lower extremity, DVT left common femoral vein and saphenofemoral junction
Heparin drip and antibiotics ordered
Hospitalist notified of admission. Labs pending
CBC with no clinically significant abnormality
CMP: BUN/creat trending towards normal otherwise no significant abnormality
*Critical Care Note
Total Time (30-74mins, 75-104mins- exclusive of procedures): Not Applicable
ED Attending Note
-
Portions of this chart may have been created with voice recognition software.� Occasional wrong word or��sound alike� substitutions may have occurred due to the inherent limitations of voice recognition software.
Discharge Plan
Departure
Patient Disposition: Admit
Date of Disposition: 07/25/24
Time of Disposition: 18:15
Admit to: Med/Surg
Presentation/result/management discussed w/ accepting MD/DO: Hospitalist
Condition: Fair
Discharge Problem:
Cellulitis of left lower extremity, Acute deep vein thrombosis (DVT) of femoral vein of left lower extremity
Interventions
Interventions:
*Risk Screen - Suicide Last Done: 07/25/24 15:15
*General Assessment Last Done: 07/25/24 16:00
*Neglect/Abuse Screening Last Done: 07/25/24 15:15
ED- Fall Risk Assessment Last Done: 07/25/24 16:00
*ED COVID-19 Vaccine History Last Done: 07/25/24 16:00
*Nursing Disposition Last Done: 07/25/24 20:35
ED- Cardiac Assessment Last Done: 07/25/24 16:00
ED- Pulmonary Assessment Last Done: 07/25/24 16:00
ED-Peripheral Vascular Assessment Last Done: 07/25/24 16:00
ED-Skin Assessment Last Done: 07/25/24 16:00
Discharge Date and Time
Discharge Date/Time: 07/25/24 20:35
--- NOTE | 2024-07-25 16:26 | WOUNDNOTE ---
WOUND/SKIN NOTE: Pt identified by name and .
L lower lateral leg
L lower anterior-medial lower leg
as above
L lower anterior leg
As above
--- NOTE | 2024-07-25 18:55 | EDRN ---
Pt's son left at this time. Pt has easily found pulses w/ doppler in L foot.
--- NOTE | 2024-07-25 18:58 | HPS.HSE ---
Family Physician
-
Family Physician: Kavon Arroyo, DO
Chief Complaint
-
Left lower extremity swelling and redness
History of Present Illness
This is a 78-year-old with past medical history of rbo-dakhfjk-kiexiklny diabetes, nephrotic syndrome, history of hypertension, hyperlipidemia, sick sinus status post pacemaker, PAD, recent over left lower extremity toe pain with arterial occlusive
disease status post left common femoral endarterectomy and profundofemoral artery endarterectomy with patch angioplasty, right common iliac artery balloon angioplasty presenting to the emergency department with left lower extremity swelling and
redness that began recently.
Patient reports noting onset of symptoms for about 1 day. He denies fevers or chills. He denies significant pain. There has been no drainage. Continues to have pain in the great left toe. Patient denies any shortness of breath. He denies any
dyspnea on exertion, denies any pleuritic chest pain. Denies dizziness or lightheadedness. Appears he has been on cephalexin since 07/22 without improvement.
In the emergency department he was afebrile, blood pressure was 97/57 with a pulse of 69 satting 100% on room air. A lower extremity ultrasound which shows a left lower extremity nonocclusive DVT in the left common femoral and saphenofemoral
junction. All labs are pending at this time.
Medical History
Past Medical History
Past Medical History: Reports CAD, CHF, Hypercholesterolemia, NIDDM, Renal Failure (CKD, nephrotic syndrome) and Other (Peripheral arterial disease, subclavian stenosis, JAQUELIN, carotid stenosis status post CEA)
Additional Past Medical History:
BPH
Past Surgical History: Reports Cardiac and Other (Carotid endarterectomy, femoral stents, left femoral artery endarterectomy with patch angioplasty, R common iliac artery balloon angioplasty)
Social History
Tobacco: Former Smoker
Alcohol: None
Drug: None
Personal: Single
Living: Alone
Employment: Retired
Family History
Family History: Not pertinent
Allergies / Home Medications
Allergies reflects when Allergies were last updated in [facility].
Home Medications with original date entered in [facility]
Allergy/Medication List:
Allergies
Allergy/AdvReac Type Severity Reaction Status Date / Time
Iodinated Contrast Media Allergy Unknown Verified 07/25/24 15:14
iodine Allergy Unknown Verified 07/25/24 15:14
Home Medications
atorvastatin 80 mg tablet 80 mg PO HS High cholesterol 02/02/22
clopidogrel 75 mg tablet (Plavix) 75 mg PO DAILY Blood clot prevention/tx 02/02/22
ezetimibe 10 mg tablet (Zetia) 10 mg PO DAILY High cholesterol 02/02/22
montelukast 10 mg tablet 10 mg PO DAILY Allergies 02/02/22
trazodone 50 mg tablet 50 mg PO HS Sleep 02/02/22
folic acid 0.8 mg capsule 800 mcg PO DAILY Supplement 02/27/22
tamsulosin 0.4 mg capsule 0.4 mg PO DAILY Urinary Issue 04/30/22
semaglutide 1 mg/dose (4 mg/3 mL) subcutaneous pen injector (Ozempic) 1 mg SC [place] Diabetes 07/14/22
torsemide 20 mg tablet 20 mg PO DAILY #30 tabs 07/21/22
docusate sodium 100 mg capsule (Colace) 100 mg PO BID Constipation 07/08/24
finasteride 5 mg tablet 5 mg PO DAILY Urinary Issue 07/08/24
finerenone 10 mg tablet (Kerendia) 10 mg PO DAILY Kidney Disease 07/08/24
metoprolol tartrate 25 mg tablet 12.5 mg PO BID Blood Pressure 07/08/24
omega 8-vrp-fui-fish oil 1,200 mg (144 mg-216 mg) capsule (Fish Oil) 1 cap PO DAILY Supplement 07/08/24
potassium chloride 20 mEq tablet,extended release(part/cryst) (Klor-Con M) 20 meq PO Q48H Electrolyte Repletion 07/08/24
dapagliflozin propanediol 10 mg tablet 10 mg PO DAILY #90 tabs 07/19/24
Saccharomyces boulardii 250 mg capsule (Probiotic (S.boulardii)) 250 mg PO BID 07/25/24
acetaminophen 325 mg tablet 650 mg PO Q4HPRN PRN mild pain 07/25/24
aspirin 81 mg tablet,delayed release 81 mg PO DAILY 07/25/24
cephalexin 500 mg capsule 500 mg PO BID 07/25/24
cholecalciferol (vitamin D3) 1,250 mcg (50,000 unit) capsule 1,250 mcg PO QMONTH 07/25/24
cyanocobalamin (vitamin B-12) 1,000 mcg tablet 1,000 mcg PO DAILY 07/25/24
fluticasone propionate 50 mcg/actuation nasal spray,suspension 1 spray intranasal HS 07/25/24
nifedipine 30 mg tablet,extended release 30 mg PO BIDPRN PRN if SBP>140 for 3 days 07/25/24
Review of Systems
-
Constitutional: Reports No Symptoms
EENT: Reports No Symptoms
Respiratory: Reports No Symptoms
Cardiac: Reports No Symptoms
Abdomen/GI: Reports No Symptoms
: Reports No Symptoms
Musculoskeletal: Reports No Symptoms
Skin: Reports No Symptoms
Neurological: Reports No Symptoms
Endocrine: Reports No Symptoms
Hematologic/Lymphatic: Reports No Symptoms
Psych: Reports No Symptoms
Physical Exam
Vital Signs
Vital Signs
Temp Pulse Resp BP Pulse Ox
98.2 F 69 16 97/57 100
07/25/24 15:15 07/25/24 16:00 07/25/24 16:00 07/25/24 16:00 07/25/24 16:00
Physical Exam
General: Well Developed, No Apparent Distress and Comfortable
HEENT: NormoCephalic, Anicteric, Moist mucous membranes and Atraumatic
Respiratory: Clear
Cardiac: S1/S2 and Regular Rhythm
Breast: Deferred by me
GI: Soft, Non Tender, Non Distended and Normal Bowel Sounds
Rectal: Deferred by Provider
Genito-urinary: Deferred by me
Musculoskeletal: No Clubbing, No Cyanosis and No Edema
Skin: Other ([place] in left groin intact no drainage or significant redness or pain)
Neuro: AO x 3 and Nonfocal/grossly intact
Hematologic/Lymphatic: No Lymphadenopathy
Psych: Calm
Laboratory Results
-
LABS PENDING
Data Reviewed
-
Ultrasound: Report Reviewed by me
Old Records: Reviewed
Impression/Plan
-
IMPRESSION:
78 y.o male with multiple commorbidities who was recently admitted for severe PAD in the left lower extremty 07/14 to 07/19 s/p left common femoral endarterectomy and profundo femoral artery endarterectomy with patch angioplasty, R common iliac artery
balloon angioplasty, had CHIO drain anterior left thigh removed, dressing dry who comes in with left lower extremity edema and erythema concerning for cellulitis w/o systemic findings and found to have a DVT in the LLE. No respiratory symptoms
concerning for PE. On aspirin/plavix for PAD/CAD.
PLAN:
1. Cellulitis - Patient with non-purulent cellulitis. No obvious abscess. No systemic signs. Recent admission with negative mrsa screen. On cephalexin since 07/22.
- admit to med/surg
- Unasyn given in ED, will start vancomycin.
- check mrsa swab
- serial examinations
2. DVT - New LLE DVT. Question of HIT on prior admission with drop in platelet count after exposure to heparin and later recovery. HIT panel was pending but non-available in system at this time. No signs of PE on history or examination. Well
appearing and hemodynamically stable. No h/o bleeding but currently on DAPT. Platelet count fully recovered. Hgb stable. Denies melena/hematochezia
- per prior heme notes, will avoid heparin for now
- oral anticoagulation is appropriate as no signs of dolens with non-occlusive thrombus, will start apixaban 10mg bid x 7 days then 5mg bid
- elevate legs
- hematology consultation
3. DM II -
- sliding sclae insulin
- dapagliflozin
4. CHF/CKD - euvolemic. BP somewhat soft.
- continue torsemide 20mg po daily with hold parameters
- dapaglflozin
- metoprolol with hold parameters
- continue kerendia
- hold nifedipine for now
5. PAD/CAD
- aspirin/plavix
- statin
- zetia
Code Status - Full code
[2024-07-25 19:10] LABS: % Basophils 0.3 % (0-2); % Eosinophils 3.9 % (0-6); % Immature Granulocytes 0.4 % (0-0.5); % Lymphocytes 8.3 % (20.5-51.1); % Monocytes 3.8 % (1.7-9.3); % Neutrophils 83.3 % (42.2-75.2); Absolute Eosinophils 0.3 10^3/uL (0-0.7); Absolute Lymphocytes 0.7 10^3/uL (1.2-3.4); Absolute Monocytes 0.3 10^3/uL (0.1-0.6); Absolute Neutrophils 6.6 10^3/uL (1.4-6.5); Hematocrit 28.6 % (39.0-52.0); Hemoglobin 9.7 g/dL (13.0-18.0); Mean Corp Hgb Conc. 33.9 g/dL (33.0-37.0); Mean Corpuscular Hgb 31.4 pg (27.0-31.0); Mean Corpuscular Volume 92.6 fL (80.0-94.0); Mean Platelet Volume 9.4 fL (7.4-10.4); Nucleated Red Blood Cells % 0 % (-); Platelet Count 191 10^3/uL (130-400); Red Blood Cell Count 3.09 10^6/uL (4.70-6.10); Red Cell Dist. Width 14.1 % (11.5-14.5); White Blood Cell Count 7.9 10^3/uL (4.8-10.8)
[2024-07-25] MEDS: UNASYN IV (19:19)
[2024-07-25 19:20] LABS: APTT 26.6 Sec (23.4-35.0); INR 1.07; PT 14.2 Sec (11.4-14.6)
[2024-07-25 19:23] LABS: ALT (SGPT) 35 U/L (0-50); AST (SGOT) 36 U/L (17-59); Alkaline Phosphatase 86 U/L (38-126); Blood Urea Nitrogen 49 mg/dl (9-20); Calcium 8.7 mg/dl (8.4-10.2); Carbon Dioxide 27 mmol/L (22-30); Chloride 104 mmol/L (98-107); Glucose 158 mg/dl (70-99); Sodium 140 mmol/L (135-145); Total Bilirubin 0.4 mg/dl (0.2-1.3); Total Protein 6.1 g/dl (6.3-8.2); eGFR 28.18
[2024-07-25 19:37] LABS: Potassium 4.1 mmol/L (3.5-5.1)
--- NOTE | 2024-07-25 20:45 | PTCARENOTE ---
Pt rec'd from ED alert & oriented x3. Able to ambulate from [place] to bed w/no difficulty. No resp distress or lightheadedness. Denies any pain. LLE very red & edematous.
--- NOTE | 2024-07-25 21:16 | PHA.VAN.IN ---
Assessment
- Assessment
Renal Function: Appears elevated from baseline
Plan
- Plan
Initial / Loading Dose: 1500mg 07/25
Maintenance Regimen: Dose by levels
Monitoring: Random level ordered with morning labs
Pharmacokinetics Vancomycin I
- -
Patient Age: 78
Patient Sex: Male
Vancomycin Day #: 1
Indication: Skin And Soft Tissue
Requesting Provider: Ozzie Clemons
Height / Weight:
Height 5 ft 10 in
Actual Weight 66.848 kg
- Vital Signs / Lab Results
Temp Pulse Resp BP Pulse Ox
98.1 F 78 18 108/66 99
07/25/24 20:46 07/25/24 20:46 07/25/24 20:46 07/25/24 20:46 07/25/24 20:46
Lab Results - Hematology
07/25/24
19:02
WBC 7.9
Lab Results - Chemistry
07/25/24
19:02
BUN 49 H
Creatinine 2.3 H
Albumin 4.0
[2024-07-25 21:25] LABS: Glucose - Point of Care 140 mg/dl (70-99)
[2024-07-25] MEDS: VANCOCIN 530 MG IV (21:51)
[2024-07-25] MEDS: FLUSH (NSS) 1 FLUSH IV (21:56)
[2024-07-25] MEDS: ELIQUIS 10 MG PO (23:04)
[2024-07-25] MEDS: FLORASTOR 250 MG PO (23:04)
[2024-07-25] MEDS: LOPRESSOR 12.5 MG PO (23:05)
[2024-07-25] MEDS: DESYREL 50 MG PO (23:09)
[2024-07-25] MEDS: LIPITOR 80 MG PO (23:09)
[2024-07-26] MEDS: TYLENOL 650 MG PO (01:22)
[2024-07-26] MEDS: ULTRAM 50 MG PO (02:35)
[2024-07-26 05:13] VITALS: BMI 20.9
[2024-07-26 07:30] VITALS: BP 112/52
[2024-07-26 07:34] LABS: Glucose - Point of Care 129 mg/dl (70-99)
[2024-07-26 08:28] LABS: Vancomycin Random 14.1 ug/ml
--- NOTE | 2024-07-26 08:28 | PHA.VAN.FU ---
Vancomycin Assessment / Plan
- Assessment
Renal Function: SCR Decreasing
WBC's are: WNL
In the past 24 hrs, patient has been: Afebrile
- Assessment - Therapeutic Drug Monitoring
Random Level: 14.1 - drawn ~10H after 1500mg loading dose
- Dosing Plan
Dosing by Level: Re-dose today (Vanc 500mg)
- Monitoring Plan
Random Level: 07/27 0600
MRSA Screen: Ordered per protocol
- Follow Up
Pharmacy will continue to follow.
Vancomycin Follow UP
- -
Patient Age: 78
Patient Sex: Male
Vancomycin Day #: 2
Indication: Skin And Soft Tissue
Requesting Provider: Dr. Horton
Pertinent Antimicrobial Allergies:
no pertinent antibiotic allergies
Height / Weight:
Height 5 ft 10 in
Actual Weight 65.998 kg
Pertinent Past Medical History: DM, CKD, PAD
- Vital Signs / Lab Results
Temp Pulse Resp BP Pulse Ox
98.0 F 66 18 117/71 100
07/25/24 23:16 07/25/24 23:16 07/25/24 23:16 07/25/24 23:16 07/25/24 23:16
Lab Results - Hematology
07/25/24
19:02
WBC 7.9
Lab Results - Chemistry
07/25/24
19:02
BUN 49 H
Creatinine 2.3 H
Albumin 4.0
[2024-07-26 08:34] LABS: Blood Urea Nitrogen 39 mg/dl (9-20); Carbon Dioxide 26 mmol/L (22-30); Chloride 108 mmol/L (98-107); Estimated Creatinine Clearance 27 ml/min; Glucose 116 mg/dl (70-99); Magnesium 2.2 mg/dl (1.6-2.3); Potassium 4.3 mmol/L (3.5-5.1); Sodium 140 mmol/L (135-145); eGFR 31.43
[2024-07-26] MEDS: NOVOLOG FLEXPEN-LOW RESISTANCE SC (08:35)
[2024-07-26 08:42] LABS: Hematocrit 23.8 % (39.0-52.0); Hemoglobin 7.9 g/dL (13.0-18.0); Mean Corp Hgb Conc. 33.2 g/dL (33.0-37.0); Mean Corpuscular Hgb 30.7 pg (27.0-31.0); Mean Corpuscular Volume 92.6 fL (80.0-94.0); Mean Platelet Volume 9.5 fL (7.4-10.4); Platelet Count 152 10^3/uL (130-400); Red Blood Cell Count 2.57 10^6/uL (4.70-6.10); Red Cell Dist. Width 13.9 % (11.5-14.5); White Blood Cell Count 5.7 10^3/uL (4.8-10.8)
[2024-07-26] MEDS: PROSCAR 5 MG PO (09:25)
[2024-07-26] MEDS: LOPRESSOR 12.5 MG PO ×2 (09:25→20:11)
[2024-07-26] MEDS: PLAVIX 75 MG PO (09:25)
[2024-07-26] MEDS: FLOMAX 0.4 MG PO (09:25)
[2024-07-26] MEDS: FLORASTOR 250 MG PO ×2 (09:25→20:11)
[2024-07-26] MEDS: ASPIR LOW (ENTERIC COATED) 81 MG PO (09:25)
[2024-07-26] MEDS: DEMADEX 20 MG PO (09:26)
[2024-07-26] MEDS: FARXIGA 10 MG PO (09:26)
[2024-07-26] MEDS: ZETIA 10 MG PO (09:26)
--- NOTE | 2024-07-26 10:00 | VNURNOTE ---
Chart reviewed. [facility]. Will continue to follow hospital course and DC plans.
--- NOTE | 2024-07-26 10:34 | W.PN.HOSP.TC ---
Today's Communication/Plan
-
see plan
Assessment / Plan
Assessment / Plan
This is a 78-year-old with past medical history of bzy-siobocr-gpqudbpuf diabetes, nephrotic syndrome, history of hypertension, CAD s/p CABG 2015 and PCI 09/25, hyperlipidemia, sick sinus status post pacemaker, PAD, recent over left lower extremity
toe pain with arterial occlusive disease status post left common femoral endarterectomy and profundofemoral artery endarterectomy with patch angioplasty, right common iliac artery balloon angioplasty presenting to the emergency department with left
lower extremity swelling and redness that began recently.
In the emergency department he was afebrile, blood pressure was 97/57 with a pulse of 69 satting 100% on room air. A lower extremity ultrasound which shows a left lower extremity nonocclusive DVT in the left common femoral and saphenofemoral
junction.
PLAN:
1. Cellulitis - Patient with non-purulent cellulitis. No obvious abscess. No systemic signs. Recent admission with negative mrsa screen. On cephalexin since 07/22.
- admit to med/surg
- continue IV Vanc, will also start IV Cefazolin
- emeterio borders
2. DVT - New LLE DVT. Question of HIT on prior admission with drop in platelet count after exposure to heparin and later recovery. HIT panel was pending but non-available in system at this time. No signs of PE on history or examination. Well
appearing and hemodynamically stable. No h/o bleeding but currently on DAPT. Platelet count fully recovered. Hgb stable. Denies melena/hematochezia
- continue Eliquis
- discussed with Vascular and OK to stop PLavix, continue asa/Eliquis
- hematology consultation
3. DM II -
- sliding sclae insulin
- dapagliflozin
4. CHF/CKD - euvolemic. BP somewhat soft - although these readings are not accurate given severe PAD.
- continue torsemide 20mg po daily with hold parameters
- dapaglflozin
- metoprolol with hold parameters
- continue kerendia
- nifedipine is ordered PRN at home
5. PAD/CAD
- aspirin/plavix
- statin
- zetia
Code Status - Full code
Anticipated Discharge: 24 - 48 hours
Subjective/Interval History
-
Date of Service: July 26, 2024
Objective Data
-
Labs:
Laboratory Results
07/26/24
07:41
WBC 5.7
Hgb 7.9 L
Hct 23.8 L
Plt Count 152 D
Sodium 140
Potassium 4.3
Chloride 108 H
Carbon Dioxide 26
BUN 39 H
Creatinine 2.1 H
Glucose 116 H
Calcium 8.0 L
Vital Signs:
Vital Signs
Temp Pulse Resp BP Pulse Ox
97.8 F 57 18 112/52 98
07/26/24 07:30 07/26/24 07:30 07/26/24 07:30 07/26/24 07:30 07/26/24 07:30
I&O
07/25/24 07/26/24 07/27/24
06:59 06:59 06:59
Intake Total 650 / 650
Output Total 400 / 400
Balance 250 / 250
[2024-07-26 11:00] LABS: Hemoglobin 8.2 g/dL (13.0-18.0)
[2024-07-26] MEDS: ELIQUIS 10 MG PO ×2 (11:23→20:10)
[2024-07-26] MEDS: PROTONIX 40 MG PO (11:23)
[2024-07-26] MEDS: ANCEF 5 IV ×2 (11:23→21:52)
[2024-07-26] MEDS: VANCOCIN HCL 500 MG 100 IV (11:23)
[2024-07-26 11:45] LABS: Glucose - Point of Care 162 mg/dl (70-99)
--- NOTE | 2024-07-26 12:06 | CON.ONC ---
Impression
Impression
Left lower extremity redness and swelling with ultrasound demonstrating nonocclusive deep vein thrombosis of the left common femoral vein and left saphenofemoral junction
Acute DVT considered provoked secondary to recent surgery, immobility and plus or minus history nephrotic syndrome
From guidelines, he will require 3 months of anticoagulation with loading dose of Eliquis for his provoked DVT
Patient is currently on DAPT with Plavix and aspirin, due to his recent vascular procedure
Recent admission demonstrated B12 and folate within normal limits
Plan
Plan
Patient was initiated on loading dose of Eliquis, recommend 7 days of 10 mg p.o. twice daily then switch to 5 mg p.o. twice daily for a total treatment length of 3 months
Reached out to vascular surgery regarding discontinuation of DAPT, was asked to reach out to forensic document examiner. [employer] Deputy Director communicated that plan is to discontinue Plavix per vascular and continue aspirin
Will defer DAPT management while on anticoagulation to vascular
Recommend monthly CBC monitoring at retirement as patient will be on Eliquis and aspirin
Will check iron studies, reticulocyte count, Hemoccult stool as he is initiating anticoagulation. Recent admission demonstrated B12 and folate within normal limits
Patient History
History of Present Illness
78-year-old male has been oxygen nephrotic syndrome, PAD, with recent hospital admission for arterial occlusive disease treated status post left common femoral endarterectomy and profundofemoral endarterectomy with patch angioplasty, right common
iliac artery balloon angioplasty presents for left lower extremity swelling this and redness which began the day after he was discharged from the hospital on DAPT. Patient was worked up in the hospital for HIT, was found to be negative and no
recommendations were made. Left lower extremity ultrasound demonstrated nonocclusive DVT in left common femoral vein and left saphenofemoral junction. Hematology was consulted regarding his acute provoked DVT.
Past-Medical/Surgical History
nephrotic syndrome, PAD, left common femoral endarterectomy and profundofemoral endarterectomy with patch angioplasty, right common iliac artery balloon angioplasty
Patient Medication
�Medication �Instructions �Recorded �Confirmed �Last Taken �Type
atorvastatin 80 mg tablet 80 mg PO HS High cholesterol 02/02/22 07/25/24 07/24/24 History
clopidogrel 75 mg tablet (Plavix) 75 mg PO DAILY Blood clot 02/02/22 07/25/24 07/25/24 History
prevention/tx
ezetimibe 10 mg tablet (Zetia) 10 mg PO DAILY High cholesterol 02/02/22 07/25/24 07/25/24 History
montelukast 10 mg tablet 10 mg PO DAILY Allergies 02/02/22 07/25/24 07/25/24 History
trazodone 50 mg tablet 50 mg PO HS Sleep 02/02/22 07/25/24 07/24/24 History
folic acid 0.8 mg capsule 800 mcg PO DAILY Supplement 02/27/22 07/25/24 07/25/24 History
tamsulosin 0.4 mg capsule 0.4 mg PO DAILY Urinary Issue 04/30/22 07/25/24 07/25/24 History
semaglutide 1 mg/dose (4 mg/3 mL) 1 mg SC [place] Diabetes 07/14/22 07/25/24 07/25/24 History
subcutaneous pen injector (Ozempic)
torsemide 20 mg tablet 20 mg PO DAILY #30 tabs 07/21/22 07/25/24 07/25/24 Rx
docusate sodium 100 mg capsule 100 mg PO BID Constipation 07/08/24 07/25/24 07/25/24 History
(Colace)
finasteride 5 mg tablet 5 mg PO DAILY Urinary Issue 07/08/24 07/25/24 07/25/24 History
finerenone 10 mg tablet (Kerendia) 10 mg PO DAILY Kidney Disease 07/08/24 07/25/24 07/25/24 History
metoprolol tartrate 25 mg tablet 12.5 mg PO BID Blood Pressure 07/08/24 07/25/24 07/25/24 History
omega 8-xnk-kix-fish oil 1,200 mg 1 cap PO DAILY Supplement 07/08/24 07/25/24 07/25/24 History
(144 mg-216 mg) capsule (Fish Oil)
potassium chloride 20 mEq 20 meq PO Q48H Electrolyte 07/08/24 07/25/24 07/25/24 History
tablet,extended Repletion
release(part/cryst) (Klor-Con M)
dapagliflozin propanediol 10 mg 10 mg PO DAILY #90 tabs 07/19/24 07/25/24 07/25/24 Rx
tablet
Saccharomyces boulardii 250 mg 250 mg PO BID 07/25/24 07/25/24 07/25/24 History
capsule (Probiotic (S.boulardii))
acetaminophen 325 mg tablet 650 mg PO Q4HPRN PRN mild pain 07/25/24 07/25/24 Unknown History
aspirin 81 mg tablet,delayed 81 mg PO DAILY 07/25/24 07/25/24 07/25/24 History
release
cephalexin 500 mg capsule 500 mg PO BID 07/25/24 07/25/24 07/25/24 History
cholecalciferol (vitamin D3) 1,250 1,250 mcg PO QMONTH 07/25/24 07/25/24 07/12/24 History
mcg (50,000 unit) capsule
cyanocobalamin (vitamin B-12) 1,000 mcg PO DAILY 07/25/24 07/25/24 07/25/24 History
1,000 mcg tablet
fluticasone propionate 50 1 spray intranasal HS 07/25/24 07/25/24 07/24/24 History
mcg/actuation nasal
spray,suspension
nifedipine 30 mg tablet,extended 30 mg PO BIDPRN PRN if SBP>140 for 07/25/24 07/25/24 Unknown History
release 3 days
Active Medications
Generic Name Dose Route Start Last Admin
Trade Name Freq PRN Reason Stop Dose Admin
Acetaminophen 650 mg 07/25/24 20:47 07/26/24 01:22
Acetaminophen 325 Mg Tablet PO 08/22/24 20:46 650 mg
Q4HPRN PRN Administration
mild pain/YOU/temp> 100.4F
Apixaban 10 mg 07/25/24 20:47 07/26/24 11:23
Apixaban (Eliquis) 5 Mg Tablet PO 08/01/24 08:01 10 mg
BID ANGELICA Administration
Aspirin 81 mg 07/26/24 08:00 07/26/24 09:25
Aspirin 81 Mg (Enteric Coated) Tablet PO 08/23/24 07:59 81 mg
DAILY ANGELICA Administration
Atorvastatin Calcium 80 mg 07/25/24 22:00 07/25/24 23:09
Atorvastatin (Lipitor) 80 Mg Tablet PO 08/22/24 21:59 80 mg
HS ANGELICA Administration
Bisacodyl 10 mg 07/25/24 20:47
Bisacodyl 10 Mg Rectal Suppository RECTAL 08/22/24 20:46
[id number] PRN
constipation
Dapagliflozin 10 mg 07/26/24 08:00 07/26/24 09:26
Dapagliflozin (Farxiga) 10 Mg Tablet PO 08/23/24 07:59 10 mg
DAILY ANGELICA Administration
Ezetimibe 10 mg 07/26/24 08:00 07/26/24 09:26
Ezetimibe (Zetia) 10 Mg Tablet PO 08/23/24 07:59 10 mg
DAILY ANGELICA Administration
Finasteride 5 mg 07/26/24 08:00 07/26/24 09:25
Finasteride 5 Mg Tablet PO 08/23/24 07:59 5 mg
DAILY ANGELICA Administration
Vancomycin HCl 1 each/ Device 0 mls @ 0 mls/hr 07/25/24 20:47
IV
PER PROTOCOL ANGELICA
Protocol
As Directed
Vancomycin HCl 100 mls @ 100 mls/hr 07/26/24 12:00 07/26/24 11:23
Vancocin Hcl 500 Mg IV 07/26/24 12:59 100 mls
ONCE@1200 ONE Administration
Cefazolin Sodium 1 gram in 5 mls @ 60 mls/hr 07/26/24 11:00 07/26/24 11:23
Ancef IV 5 mls
Q12H ANGELICA Administration
Insulin Aspart 0 units 07/26/24 07:30 07/26/24 08:35
Insulin Aspart Low Resistance 300 Units/3 Ml Pen.Injctr SC 08/23/24 07:29 Not Given
AC ANGELICA
Protocol
Metoprolol Tartrate 12.5 mg 07/25/24 20:47 07/26/24 09:25
Metoprolol 25 Mg Regular Release Tablet PO 08/22/24 20:46 12.5 mg
BID ANGELICA Administration
Montelukast Sodium 10 mg 07/26/24 18:00
Montelukast Sodium 10 Mg Tablet PO 08/23/24 17:59
QPM ANGELICA
Pantoprazole Sodium 40 mg 07/26/24 10:40 07/26/24 11:23
Pantoprazole 40 Mg Delayed Release Tablet PO 08/23/24 10:39 40 mg
DAILY ANGELICA Administration
Polyethylene Glycol 17 grams 07/25/24 20:47
Polyethylene Glycol Powder 17 Grams Packet PO 08/22/24 20:46
DAILYPRN PRN
constipation
Saccharomyces Boulardii 250 mg 07/25/24 20:47 07/26/24 09:25
Saccharomyces Boulardi (Florastor) 250 Mg Capsule PO 08/22/24 20:46 250 mg
BID ANGELICA Administration
Senna/Docusate Sodium 1 tablet 07/25/24 20:47
Docusate W/Senna (Chela-Colace) Tablet PO 08/22/24 20:46
BIDPRN PRN
constipation
Sodium Chloride 0 flush 07/25/24 22:00 07/25/24 21:56
Sodium Chloride 0.9% (Flush) Syringe IV 08/22/24 21:59 1 flush
PER PROTOCOL ANGELICA Administration
Tamsulosin HCl 0.4 mg 07/26/24 08:00 07/26/24 09:25
Tamsulosin 0.4 Mg Capsule PO 08/23/24 07:59 0.4 mg
DAILY ANGELICA Administration
Torsemide 20 mg 07/26/24 08:00 07/26/24 09:26
Torsemide 20 Mg Tablet PO 08/23/24 07:59 20 mg
DAILY ANGELICA Administration
Tramadol HCl 50 mg 07/25/24 20:47 07/26/24 02:35
Tramadol Hcl 50 Mg Tablet PO 08/22/24 20:46 50 mg
Q6HPRN PRN Administration
moderate pain
Trazodone HCl 50 mg 07/25/24 22:00 07/25/24 23:09
Trazodone 50 Mg Tablet PO 08/22/24 21:59 50 mg
HS ANGELICA Administration
Review of Systems
-
History Source: Patient
Constitutional: Reports No Symptoms
Respiratory: Reports No Symptoms; Denies Cough, Hemoptysis or Trouble Breathing
Cardiac: Reports No Symptoms; Denies Chest Pain
GI: Reports No Symptoms
Musculoskeletal: Reports Other (Left lower extremity swelling and redness)
Hematologic/Lymphatic: Reports Bruising
Physical Exam
-
General: Well Developed, Well Nourished and No Apparent Distress
Cardiology: Normal Sinus Rhythm, S1 and S2
Pulmonary: Clear
Extremities: Other (Left lower extremity red, clearly demarcated. Nontender and not hot to touch. No pain with calf squeeze, negative Homans' sign. Right lower extremity has chronic venous stasis changes.)
Skin: Warm and Dry
Psych: Calm and Intact Judgement/Insight
Labs
Lab Results
WBC 5.7 10^3/uL (4.8-10.8) 07/26/24 07:41
RBC 2.57 10^6/uL (4.70-6.10) L 07/26/24 07:41
Hgb 8.2 g/dL (13.0-18.0) L 07/26/24 10:49
Hct 23.8 % (39.0-52.0) L 07/26/24 07:41
MCV 92.6 fL (80.0-94.0) 07/26/24 07:41
MCH 30.7 pg (27.0-31.0) 07/26/24 07:41
MCHC 33.2 g/dL (33.0-37.0) 07/26/24 07:41
RDW 13.9 % (11.5-14.5) 07/26/24 07:41
Plt Count 152 10^3/uL (130-400) D 07/26/24 07:41
MPV 9.5 fL (7.4-10.4) 07/26/24 07:41
Abs Immat Gran (auto) 0.0 10^3/uL (0-0.05) 07/25/24 19:02
Absolute Neuts (auto) 6.6 10^3/uL (1.4-6.5) H 07/25/24 19:02
Absolute Lymphs (auto) 0.7 10^3/uL (1.2-3.4) L 07/25/24 19:02
Absolute Monos (auto) 0.3 10^3/uL (0.1-0.6) 07/25/24 19:02
Absolute Eos (auto) 0.3 10^3/uL (0-0.7) 07/25/24 19:02
Absolute Basos (auto) 0.0 10^3/uL (0-0.2) 07/25/24 19:02
Immature Gran % 0.4 % (0-0.5) 07/25/24 19:
Neutrophils % 83.3 % (42.2-75.2) H 07/25/24 19:02
Lymphocytes % 8.3 % (20.5-51.1) L 07/25/24 19:02
Monocytes % 3.8 % (1.7-9.3) 07/25/24 19:
Eosinophils % 3.9 % (0-6) 07/25/24 19:
Basophils % 0.3 % (0-2) 07/25/24 19:02
Creatinine 2.1 mg/dL (0.7-1.3) H 07/26/24 07:41
Vital Signs
Vital Signs
Temp Pulse Resp BP Pulse Ox
97.8 F 57 18 112/52 96
07/26/24 07:30 07/26/24 07:30 07/26/24 07:30 07/26/24 07:30 07/26/24 08:00
[2024-07-26] MEDS: NOVOLOG FLEXPEN-LOW RESISTANCE 1 UNITS SC ×2 (12:52→17:09)
[2024-07-26 15:10] VITALS: PULSE 57; O2SAT 96
[2024-07-26 15:20] VITALS: BP 110/52
--- NOTE | 2024-07-26 16:37 | CM ---
Alert awake oriented patient who lives at [facility]. He is assisted in all activities of daily living.He was offered VN he was unsure need.Grandderrek Stringer will drive him home.
Bipap
DH VN hx / No SNF history
Pharmacy [facility]
PCP DR Arroyo
PLAN Home unsure of VN
[2024-07-26 16:43] LABS: Glucose - Point of Care 186 mg/dl (70-99)
[2024-07-26] MEDS: SINGULAIR 10 MG PO (17:10)
[2024-07-26] MEDS: LIPITOR 80 MG PO (20:10)
[2024-07-26 21:05] LABS: Glucose - Point of Care 177 mg/dl (70-99)
[2024-07-26] MEDS: DESYREL 50 MG PO (21:53)
[2024-07-26 23:59] VITALS: BP 98/48
[2024-07-27 06:00] VITALS: BMI 20.7
[2024-07-27 06:22] LABS: Vancomycin Random 12.6 ug/ml
[2024-07-27 06:29] LABS: Hematocrit 25.3 % (39.0-52.0); Hemoglobin 8.5 g/dL (13.0-18.0); Mean Corp Hgb Conc. 33.6 g/dL (33.0-37.0); Mean Corpuscular Hgb 31.4 pg (27.0-31.0); Mean Corpuscular Volume 93.4 fL (80.0-94.0); Mean Platelet Volume 9.4 fL (7.4-10.4); Platelet Count 156 10^3/uL (130-400); Red Blood Cell Count 2.71 10^6/uL (4.70-6.10); Red Cell Dist. Width 13.9 % (11.5-14.5); Reticulocyte Count 1.7 % (0.4-2.8); White Blood Cell Count 5.9 10^3/uL (4.8-10.8)
[2024-07-27 06:46] LABS: Blood Urea Nitrogen 45 mg/dl (9-20); Calcium 8.2 mg/dl (8.4-10.2); Carbon Dioxide 27 mmol/L (22-30); Chloride 104 mmol/L (98-107); Estimated Creatinine Clearance 24 ml/min; Glucose 111 mg/dl (70-99); Iron 50 ug/dl (49-181); Potassium 4.1 mmol/L (3.5-5.1); Sodium 139 mmol/L (135-145); eGFR 28.18
[2024-07-27 06:57] LABS: Percent Saturation 23 % (20-50); Total Iron Binding Capacity 214 ug/dl (261-462)
[2024-07-27 07:25] VITALS: BP 112/51
[2024-07-27 07:25] LABS: Glucose - Point of Care 123 mg/dl (70-99)
[2024-07-27] MEDS: NOVOLOG FLEXPEN-LOW RESISTANCE SC (08:22)
[2024-07-27] MEDS: ELIQUIS 10 MG PO ×2 (08:23→20:09)
[2024-07-27] MEDS: FARXIGA 10 MG PO (08:23)
[2024-07-27] MEDS: PROSCAR 5 MG PO (08:24)
[2024-07-27] MEDS: ZETIA 10 MG PO (08:24)
[2024-07-27] MEDS: ASPIR LOW (ENTERIC COATED) 81 MG PO (08:24)
[2024-07-27] MEDS: PROTONIX 40 MG PO (08:24)
[2024-07-27] MEDS: FLOMAX 0.4 MG PO (08:24)
[2024-07-27] MEDS: FLORASTOR 250 MG PO ×2 (08:24→20:11)
[2024-07-27] MEDS: DEMADEX 20 MG PO (08:26)
[2024-07-27] MEDS: LOPRESSOR 12.5 MG PO ×2 (08:26→20:17)
--- NOTE | 2024-07-27 08:57 | PHA.VAN.FU ---
Vancomycin Assessment / Plan
- Assessment
Renal Function: SCR Increasing
WBC's are: WNL
In the past 24 hrs, patient has been: Afebrile
Concomitant Antimicrobials: cefazolin
- Assessment - Therapeutic Drug Monitoring
Random Level: 12.6 - drawn ~18H after previous dose of 500mg
- Dosing Plan
Dosing by Level: Re-dose today (Vanc 500mg)
- Monitoring Plan
Random Level: 07/28 0600
- Follow Up
Pharmacy will continue to follow.
Vancomycin Follow UP
- -
Patient Age: 78
Patient Sex: Male
Vancomycin Day #: 3
Indication: Skin And Soft Tissue
Requesting Provider: Dr. Horton
Pertinent Antimicrobial Allergies:
no pertinent antibiotic allergies
Height / Weight:
Height 5 ft 10 in
Actual Weight 65.459 kg
Pertinent Past Medical History: DM, CKD, PAD
- Vital Signs / Lab Results
Temp Pulse Resp BP Pulse Ox
97.6 F 54 20 112/51 100
07/26/24 23:59 07/27/24 08:26 07/26/24 23:59 07/27/24 08:26 07/26/24 23:59
Lab Results - Hematology
07/25/24 07/26/24 07/27/24
19:02 07:41 05:32
WBC 7.9 5.7 5.9
Lab Results - Chemistry
07/25/24 07/26/24 07/27/24
19:02 07:41 05:32
BUN 49 H 39 H 45 H
Creatinine 2.3 H 2.1 H 2.3 H
Estimated Creat Clear 27 24
Albumin 4.0
Therapeutic Drug Monitoring
Random Vancomycin 12.6 ug/ml 07/27/24 05:32
--- NOTE | 2024-07-27 10:09 | W.PN.ONC2 ---
Today's Communication / Plan
-
Will defer to vascular regarding whether plavix should be resumed once 3 months DOAC completed.
although epo agonist could potentially help with count recovery in setting of CKD I would hold off on this for now with acute thrombotic event.
no role for thrombophilia testing with obvious provoking factor.
Monthly CBC with PCP while on DOAC at discharge, no role for routine hematology follow up at discharge at this time
Hematology will sign off, please reach out with any questions or concerns.
Impression
Impression
Left lower extremity redness and swelling with ultrasound demonstrating nonocclusive deep vein thrombosis of the left common femoral vein and left saphenofemoral junction
Acute DVT considered provoked secondary to recent surgery, immobility and plus or minus history nephrotic syndrome
From guidelines, he will require 3 months of anticoagulation with loading dose of Eliquis for his provoked DVT
Patient is currently on DAPT with Plavix and aspirin, due to his recent vascular procedure
post operative anemia -Recent admission demonstrated B12 and folate within normal limits. HIT negative. No role for iron repletion with ferritin >100. Occult stool negative 07/15. UA with blood. No evidence of hemolysis with normal retic and LFTs
Plan
Plan
Patient was initiated on loading dose of Eliquis, recommend 7 days of 10 mg p.o. twice daily then switch to 5 mg p.o. twice daily for a total treatment length of 3 months
Reached out to vascular surgery regarding discontinuation of DAPT, was asked to reach out to double end sewer. Communications Instructor communicated that plan is to discontinue Plavix per vascular and continue aspirin
Will defer DAPT management while on anticoagulation to vascular
Recommend monthly CBC monitoring at residential as patient will be on Eliquis and aspirin
Subjective/Objective
Subjective
no new complaints
Vital Signs:
Vital Signs
Temp Pulse Resp BP Pulse Ox
97.9 F 54 18 112/51 97
07/27/24 07:25 07/27/24 08:26 07/27/24 07:25 07/27/24 08:26 07/27/24 08:01
Lab Results:
Laboratory Data
WBC 5.9 10^3/uL (4.8-10.8) 07/27/24 05:32
Hgb 8.5 g/dL (13.0-18.0) L 07/27/24 05:32
Plt Count 156 10^3/uL (130-400) 07/27/24 05:32
PT 14.2 Sec (11.4-14.6) 07/25/24 19:02
INR 1.07 07/25/24 19:02
APTT 26.6 Sec (23.4-35.0) 07/25/24 19:02
eGFR 28.18 07/27/24 05:32
Physical Exam
GEN: awake, alert, NAD. chronically ill appearing
LUNGS: CTA bilaterally, no wheezing or rhonchi.
CARD: RRR, no murmurs
EXT: erythema/purpuric like skin changes w/ small blister lesion on medial aspect above left ankle with mild left leg edema extending to knee. stasis skin changes on right leg.
[2024-07-27] MEDS: VANCOCIN HCL 500 MG 100 IV (10:15)
--- NOTE | 2024-07-27 11:01 | W.PN.HOSP.TC ---
Today's Communication/Plan
-
Eliquis
IV Vanc/Cefazolin
juanita updated
Assessment / Plan
Assessment / Plan
This is a 78-year-old with past medical history of tbt-etgtvjn-riaxzgnbo diabetes, nephrotic syndrome, history of hypertension, CAD s/p CABG 2015 and PCI 09/25, hyperlipidemia, sick sinus status post pacemaker, PAD, recent over left lower extremity
toe pain with arterial occlusive disease status post left common femoral endarterectomy and profundofemoral artery endarterectomy with patch angioplasty, right common iliac artery balloon angioplasty presenting to the emergency department with left
lower extremity swelling and redness that began recently.
In the emergency department he was afebrile, blood pressure was 97/57 with a pulse of 69 satting 100% on room air. A lower extremity ultrasound which shows a left lower extremity nonocclusive DVT in the left common femoral and saphenofemoral
junction.
PLAN:
1. Cellulitis versus Erysipelas -
- patient was on BID Keflex since 08/01
- he is not septic
- continue IV Vanc and IV Cefazolin - increasing dose
- LLE elevation
- keep at least one more night for IV antibiotics
2. DVT - New LLE DVT. Well appearing and hemodynamically stable. HIT questioned last admission; ab negative
- discussed with Vascular and OK to stop PLavix, continue asa/Eliquis
- hematology consultation appreciated - continue Eliquis x 3 months then resume plavix therapy
- PT/OT - outpatient therapy
3. DM II -
- sliding sclae insulin
- dapagliflozin
4. CHF/CKD - euvolemic. BP somewhat soft - although these readings are not accurate given severe PAD.
- continue torsemide 20mg po daily with hold parameters
- dapaglflozin
- metoprolol with hold parameters
- continue kerendia
- nifedipine is ordered PRN at home
5. PAD/CAD
- aspirin/plavix
- statin
- zetia
Essential HTN - BP readings are inaccurate given severe bilateral subclavian occlusions
-procardia was added last admission then changed to PRN
-resumed PRN here for SBP > 120
Code Status - Full code
Anticipated Discharge: 24 - 48 hours
Subjective/Interval History
-
Date of Service: July 27, 2024
no new complaints
area of redness has not surpassed marked borders
Objective Data
-
Labs:
Laboratory Results
07/27/24
05:32
WBC 5.9
Hgb 8.5 L
Hct 25.3 L
Plt Count 156
Sodium 139
Potassium 4.1
Chloride 104
Carbon Dioxide 27
BUN 45 H
Creatinine 2.3 H
Glucose 111 H
Calcium 8.2 L
Vital Signs:
Vital Signs
Temp Pulse Resp BP Pulse Ox
97.9 F 54 18 112/51 97
07/27/24 07:25 07/27/24 08:26 07/27/24 07:25 07/27/24 08:26 07/27/24 08:01
I&O
07/26/24 07/27/24 07/28/24
06:59 06:59 06:59
Intake Total 650 / 650 840 / 840
Output Total 400 / 400 1100 / 1100
Balance 250 / 250 -260 / -260
Review of Systems
-
History Source: Patient
All other systems: Reviewed and negative
Physical Exam
-
General: No Apparent Distress
HEENT: Moist Mucous Membranes
Respiratory: Clear to Auscultation; Negative Wheezes or Crackles
Cardiac: Regular Rhythm and S1/S2
GI: Soft
Neuro: AO x 3
Psych: Calm; Negative Confused
Data Reviewed
-
Diagnostic Radiology: Report Reviewed by me
Labs: Labs Reviewed by me
[2024-07-27] MEDS: ANCEF 10 IV ×2 (11:19→20:09)
[2024-07-27 11:31] VITALS: BP 130/57; PULSE 58; O2SAT 100
[2024-07-27 12:01] LABS: Glucose - Point of Care 201 mg/dl (70-99)
[2024-07-27] MEDS: NOVOLOG FLEXPEN-LOW RESISTANCE 2 UNITS SC (12:10)
[2024-07-27 15:21] VITALS: PULSE 78
[2024-07-27 15:30] VITALS: BP 104/61
[2024-07-27 17:37] LABS: Glucose - Point of Care 196 mg/dl (70-99)
[2024-07-27] MEDS: NOVOLOG FLEXPEN-LOW RESISTANCE 1 UNITS SC (17:37)
[2024-07-27] MEDS: SINGULAIR 10 MG PO (17:39)
[2024-07-27] MEDS: LIPITOR 80 MG PO (20:09)
[2024-07-27] MEDS: TYLENOL 650 MG PO (20:14)
[2024-07-27 21:05] LABS: Glucose - Point of Care 220 mg/dl (70-99)
[2024-07-27] MEDS: DESYREL 50 MG PO (21:50)
[2024-07-27 23:55] VITALS: BP 100/53
[2024-07-28] VITALS: BP 100/53
--- NOTE | 2024-07-28 02:35 | DOWNTIME ---
There was a [employer] Client Electric Freight Car Operator Downtime on 07/28/2024 from 0100 to 07/28/2023 at 0205 . Downtime documentation of patient's care, including medication administrations, has been reconciled in the electronic record per guidelines. Refer to the
patient's paper chart under the miscellaneous tab to see printed paper medication records and downtime forms.
[2024-07-28 06:00] VITALS: BMI 20.6
[2024-07-28 06:46] LABS: Hematocrit 26.6 % (39.0-52.0); Hemoglobin 9.1 g/dL (13.0-18.0); Mean Corp Hgb Conc. 34.2 g/dL (33.0-37.0); Mean Corpuscular Hgb 31.6 pg (27.0-31.0); Mean Corpuscular Volume 92.4 fL (80.0-94.0); Mean Platelet Volume 9.3 fL (7.4-10.4); Platelet Count 171 10^3/uL (130-400); Red Blood Cell Count 2.88 10^6/uL (4.70-6.10); Red Cell Dist. Width 13.7 % (11.5-14.5); White Blood Cell Count 5.8 10^3/uL (4.8-10.8)
[2024-07-28 07:06] LABS: Blood Urea Nitrogen 46 mg/dl (9-20); Calcium 8.7 mg/dl (8.4-10.2); Carbon Dioxide 28 mmol/L (22-30); Chloride 103 mmol/L (98-107); Estimated Creatinine Clearance 24 ml/min; Glucose 135 mg/dl (70-99); Sodium 140 mmol/L (135-145); eGFR 28.18
[2024-07-28 07:07] LABS: Vancomycin Random 13.8 ug/ml
[2024-07-28 07:23] VITALS: BP 141/57
--- NOTE | 2024-07-28 07:26 | W.PN.UPDATE ---
Update Note
Progress Note Update
Patient seen at bedside this a.m. resting comfortably. Patient offers no complaints at this time. Left groin site clean, dry, well-approximated, flat, soft. Nilda were removed at bedside, Steri-Strips applied. Patient tolerated well. Patient
was to see us in the office for follow-up today. I will change appointment as he was seen today inpatient. Looks great from surgical standpoint
[2024-07-28 08:01] LABS: Glucose - Point of Care 133 mg/dl (70-99)
[2024-07-28] MEDS: NOVOLOG FLEXPEN-LOW RESISTANCE SC (08:12)
[2024-07-28] MEDS: ZETIA 10 MG PO (08:16)
[2024-07-28] MEDS: ANCEF 10 IV (08:16)
[2024-07-28] MEDS: FARXIGA 10 MG PO (08:17)
[2024-07-28] MEDS: LOPRESSOR 12.5 MG PO ×2 (08:17→20:55)
[2024-07-28] MEDS: ELIQUIS 10 MG PO ×2 (08:22→20:51)
[2024-07-28] MEDS: DEMADEX 20 MG PO (08:22)
[2024-07-28] MEDS: ASPIR LOW (ENTERIC COATED) 81 MG PO (08:22)
[2024-07-28] MEDS: FLORASTOR 250 MG PO ×2 (08:22→20:54)
[2024-07-28] MEDS: PROTONIX 40 MG PO (08:22)
[2024-07-28] MEDS: FLOMAX 0.4 MG PO (08:23)
[2024-07-28] MEDS: PROSCAR 5 MG PO (08:23)
--- NOTE | 2024-07-28 10:13 | PHA.VAN.FU ---
Vancomycin Assessment / Plan
- Assessment
Renal Function: Stable
WBC's are: WNL
In the past 24 hrs, patient has been: Afebrile
Concomitant Antimicrobials: cefazolin
- Assessment - Therapeutic Drug Monitoring
Random Level: 13.8 - drawn ~19.5H after previous dose of 500mg
- Dosing Plan
Dosing by Level: Re-dose today (Vanc 500mg)
- Monitoring Plan
Random Level: 07/29 0600
- Follow Up
Pharmacy will continue to follow.
Vancomycin Follow UP
- -
Patient Age: 78
Patient Sex: Male
Vancomycin Day #: 4
Indication: Skin And Soft Tissue
Requesting Provider: Dr. Horton
Pertinent Antimicrobial Allergies:
no pertinent antibiotic allergies
Height / Weight:
Height 5 ft 10 in
Actual Weight 65.091 kg
Pertinent Past Medical History: DM, CKD, PAD
- Vital Signs / Lab Results
Temp Pulse Resp BP Pulse Ox
98 F 58 20 141/57 100
07/28/24 07:23 07/28/24 08:17 07/28/24 07:23 07/28/24 08:17 07/28/24 07:23
Lab Results - Hematology
07/25/24 07/26/24 07/27/24
19:02 07:41 05:32
WBC 7.9 5.7 5.9
07/28/24
05:49
WBC 5.8
Lab Results - Chemistry
07/25/24 07/26/24 07/27/24
19:02 07:41 05:32
BUN 49 H 39 H 45 H
Creatinine 2.3 H 2.1 H 2.3 H
Estimated Creat Clear 27 24
Albumin 4.0
07/28/24
05:49
BUN 46 H
Creatinine 2.3 H
Estimated Creat Clear 24
Albumin
Microbiology Results
07/26/24 12:56 MRSA Screen - Final
Nose No Methicillin Resistant Staphylococcus aureus isolated.
Therapeutic Drug Monitoring
Random Vancomycin 13.8 ug/ml 07/28/24 05:49
--- NOTE | 2024-07-28 10:42 | PN.CDI ---
CDI
- -
CDI:
Physician Documentation Request
Admit Date: 07/26/24 10:29
Dear Doctor Sanju,
Clinical Indicators:
Patient admitted with cellulitis and LLE DVT.
07/13/24 Pre Op Cardiac Clearance: 'Echo October 2023: EF 55 to 60%...'
07/27 PN, 'CHF... euvolemic'
Please provide further specificity regarding the most likely type and acuity of CHF you are evaluating, treating or monitoring.
Chronic HFpEF
Other, please specify
Use of terms such as suspected, likely, concern for, or probable (associated with a specific diagnosis that is being evaluated, monitored, or treated as if it exists) are acceptable and can be coded in the inpatient setting, when documented at the
time of discharge.
Thank you,
Pamela Rico RN BSN
CDI Specialist
available via tiger text
Please use your independent medical judgment in providing your response.
--- NOTE | 2024-07-28 10:53 | PN.CDI ---
CDI
- -
CDI:
Physician Documentation Request
Admit Date: 07/26/24 10:29
Dear Doctor Sanju,
Clinical Indicators:
Patient admitted with cellulitis and LLE DVT.
07/14/24 (last admission) Renal consult, CKD 4 documented.
07/27 PN, 'CKD'
Cr/GFR trend:
07/25/24 07/26/24 07/27/24
19:02 07:41 05:32
Creatinine 2.3 H 2.1 H 2.3 H
eGFR 28.18 31.43 28.18
07/28/24
05:49
Creatinine 2.3 H
eGFR 28.18
Please specify the stage of CKD:
CKD 4
CKD 3b
Other, please specify
Stages of Chronic Kidney Disease*
Level Description GFR
G1 Normal or High >90
G2 Mildly decreased 60-89
G3a Mildly to moderately decreased 45-59
G3b Moderately to severely decreased 30-44
G4 Severely decreased 15-29
G5 Kidney failure <15
Use of terms such as suspected, likely, concern for, or probable (associated with a specific diagnosis that is being evaluated, monitored, or treated as if it exists) are acceptable and can be coded in the inpatient setting, when documented at the
time of discharge.
Thank you,
Pamela Rico RN BSN
CDI Specialist
available via tiger text
Please use your independent medical judgment in providing your response.
*Source: Kidney Disease: Improving Global Outcomes (KDIGO) 2012
--- NOTE | 2024-07-28 11:25 | W.PN.HOSP.TC ---
Today's Communication/Plan
-
see plan
Assessment / Plan
Assessment / Plan
This is a 78-year-old with past medical history of kyg-edfkuwh-gvxrajivm diabetes, nephrotic syndrome, history of hypertension, CAD s/p CABG 2015 and PCI 09/25, hyperlipidemia, sick sinus status post pacemaker, PAD, recent over left lower extremity
toe pain with arterial occlusive disease status post left common femoral endarterectomy and profundofemoral artery endarterectomy with patch angioplasty, right common iliac artery balloon angioplasty presenting to the emergency department with left
lower extremity swelling and redness that began recently.
In the emergency department he was afebrile, blood pressure was 97/57 with a pulse of 69 satting 100% on room air. A lower extremity ultrasound which shows a left lower extremity nonocclusive DVT in the left common femoral and saphenofemoral
junction.
PLAN:
1. Cellulitis versus Erysipelas -
- patient was on BID Keflex since 08/01
- he is not septic
- continue IV Vanc and IV Cefazolin
- clinical exam without significant change - will consult ID
- LLE elevation
2. DVT - New LLE DVT. Well appearing and hemodynamically stable. HIT questioned last admission; ab negative
- discussed with Vascular and OK to stop PLavix, continue asa/Eliquis
- hematology consultation appreciated - continue Eliquis x 3 months then resume plavix therapy
- PT/OT - outpatient therapy
3. DM II -
- sliding sclae insulin
- dapagliflozin
4. CHF/CKD - euvolemic. BP somewhat soft - although these readings are not accurate given severe PAD.
- continue torsemide 20mg po daily with hold parameters
- dapaglflozin
- metoprolol with hold parameters
- continue kerendia
- nifedipine is ordered PRN at home
5. PAD/CAD
- aspirin/plavix
- statin
- zetia
Essential HTN - BP readings are inaccurate given severe bilateral subclavian occlusions
-procardia was added last admission then changed to PRN
-resumed PRN here for SBP > 120
Code Status - Full code
Anticipated Discharge: 24 - 48 hours
Subjective/Interval History
-
Date of Service: July 28, 2024
no new complaints
Objective Data
-
Labs:
Laboratory Results
07/28/24
05:49
WBC 5.8
Hgb 9.1 L
Hct 26.6 L
Plt Count 171
Sodium 140
Potassium 4.0
Chloride 103
Carbon Dioxide 28
BUN 46 H
Creatinine 2.3 H
Glucose 135 H
Calcium 8.7
Vital Signs:
Vital Signs
Temp Pulse Resp BP Pulse Ox
98 F 58 20 141/57 100
07/28/24 07:23 07/28/24 08:17 07/28/24 07:23 07/28/24 08:17 07/28/24 07:23
I&O
07/27/24 07/28/24 07/29/24
06:59 06:59 06:59
Intake Total 840 / 840 720 / 720
Output Total 1100 / 1100
Balance -260 / -260 720 / 720
Review of Systems
-
History Source: Patient
All other systems: Reviewed and negative
Physical Exam
-
General: No Apparent Distress
HEENT: Moist Mucous Membranes
Respiratory: Clear to Auscultation; Negative Wheezes or Crackles
Cardiac: Regular Rhythm and S1/S2
GI: Soft
Musculoskeletal: Other (LLE edema )
Skin: Other (RLE with erythema within marked borders )
Neuro: AO x 3
Psych: Calm; Negative Confused
Data Reviewed
-
Diagnostic Radiology: Report Reviewed by me
Labs: Labs Reviewed by me
[2024-07-28 11:57] LABS: Glucose - Point of Care 197 mg/dl (70-99)
[2024-07-28] MEDS: VANCOCIN HCL 500 MG 100 IV (12:08)
[2024-07-28] MEDS: NOVOLOG FLEXPEN-LOW RESISTANCE 1 UNITS SC (12:08)
[2024-07-28 15:03] VITALS: BP 124/65
--- NOTE | 2024-07-28 16:21 | CM ---
Addendum entered by Carola Apple RN 07/28/24 16:27:
[facility]
report [phone]
fax [phone]
Original Note:
LM for Denisa [phone] at [facility] [place] ..
Spoke with pt and g son Myke [phone] he agrees he wants pt to return to personal care.[facility] will transport pt.
IMM reviewed with Myke He is to sign IMM.
Unsure if he will need DHVN VS Pt Ot at [facility].Will clarify with Denisa prior to dc.
PLAN To [facility] with VN VS PT OT at facility.
[2024-07-28 16:47] LABS: Glucose - Point of Care 211 mg/dl (70-99)
--- NOTE | 2024-07-28 16:55 | CON.ID ---
Consultation
-
Date/Time Consultation Requested: 07/28/2024 1121
Date/Time Consultation Performed: 07/28/2024 1615
Requesting Provider: Dr. Bills
Performing Provider: Dr. Mead
Reason for Consultation: Left leg erythema
Chief Complaint / Past History
History of Present Illness
Boni Capellan is a 78-year-old man being evaluated at the request of Dr. Bills in regards to left leg erythema. History is obtained from chart review, along with patient interview.
The patient has a significant past medical history of PAD, along with DM and CAD, and was a recent inpatient at [facility] from 07/13 through 07/19, during which time he underwent left common femoral endarterectomy and profundofemoral artery
endarterectomy with patch angioplasty.
He presents back to the ER on 07/25 secondary to left lower extremity erythema and swelling. Workup in the emergency room did not reveal leukocytosis, but duplex ultrasound of the left lower extremity revealed nonocclusive deep vein thrombosis in
the left common femoral vein and left saphenofemoral junction. The erythema of the leg was first assessed to be potential cellulitis. The patient was placed on antibiotics, but to date there has been little improvement in the erythema. Infectious
Diseases is asked to comment upon further antimicrobial therapy.
At present, the patient denies significant discomfort in the leg. He does have some diminished feeling, but does not complain of significant warmth.
Past History
Additional Past Medical History:
CAD
NIDDM
Nephrotic syndrome
Carotid stenosis
HTN
Dyslipidemia
PAD
Additional Past Surgical History:
PPM placement
CEA
Femoral stenting
Recent femoral endarterectomy
Allergy History:
Iodinated Contrast Media Allergy (Verified 07/25/24 15:14)
Unknown
iodine Allergy (Verified 07/25/24 15:14)
Unknown
Medications Reviewed: Yes
Current Antibiotics:
Cefazolin
Vancomycin
Social History
Tobacco: Former Smoker
Alcohol: None
Drug: None
Living: Other (Independent living)
Employment: Retired
Review of Systems
Vital Signs
Temp Pulse Resp BP Pulse Ox
98 F 57 20 124/65 100
07/28/24 15:03 07/28/24 15:03 07/28/24 15:03 07/28/24 15:03 07/28/24 15:03
Physical Exam
Physical Exam
Constitutional: No Acute Distress, Comfortable and Non-toxic
Eyes: Pupils Equal, Pupils Round, No Conjunctival Hemorrhage and Sclera Anicteric
Cardiovascular: Regular Rate and S1/S2; Negative S3/S4
Pulmonary: Clear; Negative Wheezes or Rales
Gastrointestinal: Soft, Non Tender, Non Distended and Normal Bowel Sounds
Extremities: Edema (Left lower extremity; 4+), Erythema (Mild; left lower extremity. No significant warmth or tenderness.) and Venous Insufficiency (Bilateral lower extremities); Negative Cyanosis
Skin: Warm and Dry; Negative Rash or Jaundice
Wound: Other (Several serous fluid-filled bullae noted on the distal left lower extremity.)
Neurological: Awake and Alert
Psychological: Calm
Lab / Diagnostic Study Results
07/28/24 05:49
07/28/24 05:49
Abs Immat Gran (auto) 0.0 10^3/uL (0-0.05) 07/25/24 19:02
Absolute Neuts (auto) 6.6 10^3/uL (1.4-6.5) H 07/25/24 19:02
Absolute Lymphs (auto) 0.7 10^3/uL (1.2-3.4) L 07/25/24 19:02
Absolute Monos (auto) 0.3 10^3/uL (0.1-0.6) 07/25/24 19:02
Absolute Basos (auto) 0.0 10^3/uL (0-0.2) 07/25/24 19:02
Immature Gran % 0.4 % (0-0.5) 07/25/24:
Neutrophils % 83.3 % (42.2-75.2) H 07/25/24:
Lymphocytes % 8.3 % (20.5-51.1) L 07/25/24:
Monocytes % 3.8 % (1.7-9.3) 07/25/24:
Eosinophils % 3.9 % (0-6) 07/25/24:
Basophils % 0.3 % (0-2) 07/25/24:
PT 14.2 Sec (11.4-14.6) 07/25/24:
INR 1.07 07/25/24:
Microbiology Results
Micro:
07/26/24 12:56 MRSA Screen - Final
Nose No Methicillin Resistant Staphylococcus aureus isolated.
Imaging:
07/25/2024 Duplex ultrasound left lower extremity: Nonocclusive deep vein thrombosis in the left common femoral vein and left saphenofemoral junction.
Assessment / Plan
Left lower extremity DVT
Left lower extremity edema
Bilateral lower extremity venous insufficiency
CAD
NIDDM
Nephrotic syndrome
Carotid stenosis
HTN
Dyslipidemia
PAD
Recommendations:
Dark erythema noted on the left lower extremity is likely extension of underlying venous insufficiency (given the acute DVT noted on imaging). At present, no evidence of cellulitis or other SSTI.
Discontinue further antibiotics.
Lower extremity compressive modalities with the use of Tubigrip's plus minus Justino wrap's.
Lower extremity elevation above the level of the heart approximately 1 to 2 hours out of every 6.
[2024-07-28] MEDS: NOVOLOG FLEXPEN-LOW RESISTANCE 2 UNITS SC (17:28)
[2024-07-28] MEDS: SINGULAIR 10 MG PO (17:28)
[2024-07-28 17:58] LABS: Glucose - Point of Care 221 mg/dl (70-99)
[2024-07-28] MEDS: LIPITOR 80 MG PO (21:00)
[2024-07-28 21:20] LABS: Glucose - Point of Care 207 mg/dl (70-99)
[2024-07-28] MEDS: DESYREL 50 MG PO (22:29)
[2024-07-28 23:25] VITALS: BP 114/58
[2024-07-29] MEDS: ULTRAM 50 MG PO (00:09)
[2024-07-29] MEDS: TYLENOL 650 MG PO (02:35)
[2024-07-29] MEDS: MORPHINE SULFATE 2 MG IV (05:12)
[2024-07-29 06:00] VITALS: BMI 20.5
[2024-07-29 06:45] VITALS: BP 103/45
[2024-07-29] MEDS: ASPIR LOW (ENTERIC COATED) 81 MG PO (08:10)
[2024-07-29] MEDS: ELIQUIS 10 MG PO (08:10)
[2024-07-29] MEDS: LOPRESSOR 12.5 MG PO (08:11)
[2024-07-29] MEDS: FLORASTOR 250 MG PO (08:12)
[2024-07-29] MEDS: DEMADEX 20 MG PO (08:12)
[2024-07-29] MEDS: FLOMAX 0.4 MG PO (08:12)
[2024-07-29] MEDS: PROTONIX 40 MG PO (08:12)
[2024-07-29] MEDS: FARXIGA 10 MG PO (08:12)
[2024-07-29] MEDS: PROSCAR 5 MG PO (08:12)
[2024-07-29] MEDS: ZETIA 10 MG PO (08:12)
[2024-07-29 08:36] LABS: Glucose - Point of Care 142 mg/dl (70-99)
[2024-07-29] MEDS: NOVOLOG FLEXPEN-LOW RESISTANCE SC ×2 (08:41→12:37)
[2024-07-29 11:30] VITALS: BMI 20.5
--- NOTE | 2024-07-29 11:46 | W.PN.HOSP.TC ---
Addendum entered and electronically signed by Latesha Bills MD 07/30/24 08:04:
HFpEF - chronic - continue Torsemide
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
Original Note:
Today's Communication/Plan
-
Ok for DC today
Assessment / Plan
Assessment / Plan
This is a 78-year-old with past medical history of ijy-wldkrsi-rqrenyugr diabetes, nephrotic syndrome, history of hypertension, CAD s/p CABG 2015 and PCI 09/25, hyperlipidemia, sick sinus status post pacemaker, PAD, recent over left lower extremity
toe pain with arterial occlusive disease status post left common femoral endarterectomy and profundofemoral artery endarterectomy with patch angioplasty, right common iliac artery balloon angioplasty presenting to the emergency department with left
lower extremity swelling and redness that began recently.
In the emergency department he was afebrile, blood pressure was 97/57 with a pulse of 69 satting 100% on room air. A lower extremity ultrasound which shows a left lower extremity nonocclusive DVT in the left common femoral and saphenofemoral
junction.
PLAN:
1 concern for cellulitis. Per ID this is all venous stasis changes and antibiotics discontinued on 07/28
2. DVT - New LLE DVT. Well appearing and hemodynamically stable. HIT questioned last admission; ab negative
- discussed with Vascular and OK to stop PLavix, continue asa/Eliquis
- hematology consultation appreciated - continue Eliquis x 3 months then resume plavix therapy
- PT/OT - outpatient therapy
3. DM II -
- sliding sclae insulin
- dapagliflozin
4. CHF/CKD - euvolemic. BP somewhat soft - although these readings are not accurate given severe PAD.
- continue torsemide 20mg po daily with hold parameters
- dapaglflozin
- metoprolol with hold parameters
- continue kerendia
- nifedipine is ordered PRN at home
5. PAD/CAD
- aspirin/Eliquis
- statin
- zetia
Essential HTN - BP readings are inaccurate given severe bilateral subclavian occlusions
-procardia was added last admission then changed to PRN
-resumed PRN here for SBP > 120
Code Status - Full code
Anticipated Discharge: Today
Subjective/Interval History
-
Date of Service: July 29, 2024
feeling well
no new complaints
no pain
Objective Data
-
Vital Signs:
Vital Signs
Temp Pulse Resp BP Pulse Ox
98.8 F 67 18 103/45 99
07/29/24 06:45 07/29/24 08:12 07/29/24 06:45 07/29/24 08:12 07/29/24 08:03
I&O
07/28/24 07/29/24 07/30/24
06:59 06:59 06:59
Intake Total 720 / 720 720 / 720
Balance 720 / 720 720 / 720
Review of Systems
-
History Source: Patient
All other systems: Reviewed and negative
Physical Exam
-
General: No Apparent Distress
HEENT: Moist Mucous Membranes
Respiratory: Clear to Auscultation; Negative Wheezes or Crackles
Cardiac: Regular Rhythm and S1/S2
GI: Soft
Musculoskeletal: Other (LLE edema )
Skin: Other (RLE with erythema within marked borders )
Neuro: AO x 3
Psych: Calm; Negative Confused
Data Reviewed
-
Diagnostic Radiology: Report Reviewed by me
Labs: Labs Reviewed by me
--- NOTE | 2024-07-29 12:00 | W.DS.TRANS ---
DC Summary - [employer]
-
Discharge Instructions:
Discharge Diagnosis/Procedures left lower extremity DVT
Diet Diabetic, Carb Controlled
Activity As tolerated
Driving Restrictions No driving
Bathing Restrictions None
Instructions:
Stand-Alone Forms:
Changes to Home Medications: Yes
Discharge Medications:
DC Medications w/original date entered in [employer]
atorvastatin 80 mg tablet 80 mg PO HS High cholesterol 02/02/22
ezetimibe 10 mg tablet (Zetia) 10 mg PO DAILY High cholesterol 02/02/22
montelukast 10 mg tablet 10 mg PO DAILY Allergies 02/02/22
trazodone 50 mg tablet 50 mg PO HS Sleep 02/02/22
folic acid 0.8 mg capsule 800 mcg PO DAILY Supplement 02/27/22
tamsulosin 0.4 mg capsule 0.4 mg PO DAILY Urinary Issue 04/30/22
semaglutide 1 mg/dose (4 mg/3 mL) subcutaneous pen injector (Ozempic) 1 mg SC [place] Diabetes 07/14/22
torsemide 20 mg tablet 20 mg PO DAILY #30 tabs 07/21/22
docusate sodium 100 mg capsule (Colace) 100 mg PO BID Constipation 07/08/24
finasteride 5 mg tablet 5 mg PO DAILY Urinary Issue 07/08/24
finerenone 10 mg tablet (Kerendia) 10 mg PO DAILY Kidney Disease 07/08/24
metoprolol tartrate 25 mg tablet 12.5 mg PO BID Blood Pressure 07/08/24
omega 3-aus-ktx-fish oil 1,200 mg (144 mg-216 mg) capsule (Fish Oil) 1 cap PO DAILY Supplement 07/08/24
potassium chloride 20 mEq tablet,extended release(part/cryst) (Klor-Con M) 20 meq PO Q48H Electrolyte Repletion 07/08/24
dapagliflozin propanediol 10 mg tablet 10 mg PO DAILY #90 tabs 07/19/24
Saccharomyces boulardii 250 mg capsule (Probiotic (S.boulardii)) 250 mg PO BID Supplement 07/25/24
acetaminophen 325 mg tablet 650 mg PO Q4HPRN PRN mild pain 07/25/24
aspirin 81 mg tablet,delayed release 81 mg PO DAILY Blood Clot Prevention/Tx 07/25/24
cholecalciferol (vitamin D3) 1,250 mcg (50,000 unit) capsule 1,250 mcg PO QMONTH Supplement 07/25/24
cyanocobalamin (vitamin B-12) 1,000 mcg tablet 1,000 mcg PO DAILY Supplement 07/25/24
fluticasone propionate 50 mcg/actuation nasal spray,suspension 1 spray intranasal HS Congestion 07/25/24
nifedipine 30 mg tablet,extended release 30 mg PO BIDPRN PRN if SBP>140 for 3 days 07/25/24
apixaban 5 mg tablet (Eliquis) 5 mg PO BID #80 tabs 07/29/24
pantoprazole 40 mg tablet,delayed release 40 mg PO DAILY #90 tabs 07/29/24
Home Medication Changes
Stop Plavix until further directed by your outpatient providers (this will be held while taking Eliquis)
You are newly prescribed Eliquis for treatment of blood clot in lung. Take 2 pills (10mg) twice a day through morning of 08/01/24. On evening of 08/01/24 start 1 pill (5mg) twice a day. You will need to take Eliquis for at least 3 months, you will
need refills of this medication.
You are prescribed Protonix to help protect your stomach lining while on Aspirin and Eliquis
Pending Results: No
--- NOTE | 2024-07-29 12:00 | CM ---
entered order for discharge.
LM for Denisa [phone] at [facility] care ..
Spoke with pt and g son Myke [phone] he agrees he wants pt to return to personal care.[facility] will transport pt.
IMM reviewed with Myke He is to sign IMM.
Unsure if he will need DHVN VS Pt Ot at [facility].Will clarify with Denisa prior to dc.
.[facility]
report [phone]
fax [phone]
PLAN To [facility] with VN .
[2024-07-29 12:30] LABS: Glucose - Point of Care 143 mg/dl (70-99)
--- NOTE | 2024-07-29 12:46 | CM ---
entered order for discharge.
Spoke with Denisa [phone] at [facility] .She said she will set up PT OT for him.
Spoke with pt and g son Myke [phone] he will transport pt.
[facility]
report [phone]
fax [phone]
PLAN To [facility]
--- NOTE | 2024-07-29 13:51 | W.DCSUMMARY ---
Discharge Summary
Discharge Data
Date of Admission: 07/26/24
Date of Discharge: 07/29/24
-
Pending Results: No
Hospital Course
Discharging Physician : Dr. Latesha Bills
Disposition : Home
Primary care physician : Dr. Kavon Arroyo
Principal Discharge diagnosis : Left lower extremity DVT
Hospital Course :
Mr. Boni Capellan is a 78-year-old with past medical history of nyy-trdzqsg-[id number] diabetes, nephrotic syndrome, history of hypertension, CAD s/p CABG 2015 and PCI 09/25, hyperlipidemia, sick sinus status post pacemaker, PAD s/p left common
femoral endarterectomy and profunda femoral artery endarterectomy with patch angioplasty, right common iliac artery balloon angioplasty (07/13/24) presenting to the emergency department with left lower extremity swelling and redness that began
recently.
In the emergency department he was afebrile, blood pressure was 97/57 with a pulse of 69 satting 100% on room air. A lower extremity ultrasound which shows a left lower extremity nonocclusive DVT in the left common femoral and saphenofemoral
junction. Patient was admitted to medicine with Hematology consulting. He was started on Eliquis for treatment of DVT. Case discussed with Vascular Surgery and while patient is on Eliquis, OK to hold Plavix. He will need at least 3 months of
Eliquis for DVT provoked by recent surgery.
Patient had LLE redness without significant tenderness with initial concern for cellulitis. Exam did not change despite antibiotic therapy. ID consulted who feels this is from venous insufficiency, no evidence of SSTI and antibiotics stopped.
Patient did well with PT, OK for discharge.
Time spent on discharge was 35 minutes.
Important imaging findings :
Procedure findings :
Discharge Plan
-
Patient Disposition: Home (Routine Discharge)
Discharge Diagnosis/Procedures: left lower extremity DVT
Diet: Diabetic, Carb Controlled
Activity: As tolerated
Driving Restrictions: No driving
Bathing Restrictions: None
Referrals:
Marnie Mcduffie PA-C [Specified Professional Personl] - 08/11/24 10:30 am (Vascular surgery office follow-up)
Kavon Arroyo DO [Family Provider] - in less than 1 week
Additional Discharge Medication Instructions: Stop Plavix until further directed by your outpatient providers (this will be held while taking Eliquis)
You are newly prescribed Eliquis for treatment of blood clot in lung. Take 2 pills (10mg) twice a day through morning of 08/01/24. On evening of 08/01/24 start 1 pill (5mg) twice a day. You will need to take Eliquis for at least 3 months, you will
need refills of this medication.
You are prescribed Protonix to help protect your stomach lining while on Aspirin and Eliquis
Prescriptions:
New
Eliquis 5 mg Tablet
5 mg PO BID Qty: 80 0RF
Rx Instructions:
Take 10mg through morning of 08/01/24 then start 5mg evening 08/01/24
pantoprazole 40 mg Tablet,Delayed Release (Dr/Ec)
40 mg PO DAILY Qty: 90 0RF
Continued
folic acid 0.8 mg Capsule
800 mcg PO DAILY
atorvastatin 80 mg Tablet
80 mg PO HS
trazodone 50 mg Tablet
50 mg PO HS
montelukast 10 mg Tablet
10 mg PO DAILY
ezetimibe [Zetia] 10 mg Tablet
10 mg PO DAILY
tamsulosin 0.4 mg Capsule
0.4 mg PO DAILY
Ozempic 1 mg/dose (4 mg/3 mL) pen injector
1 mg SC [place]
torsemide 20 mg Tablet
20 mg PO DAILY Qty: 30 0RF
docusate sodium [Colace] 100 mg Capsule
100 mg PO BID
finasteride 5 mg Tablet
5 mg PO DAILY
metoprolol tartrate 25 mg Tablet
12.5 mg PO BID
omega 1-qdy-cfs-fish oil [Fish Oil] 1,200 (144-216) mg Capsule
1 cap PO DAILY
Kerendia 10 mg Tablet
10 mg PO DAILY
potassium chloride [Klor-Con M20] 20 mEq tablet,ER particles/crystals
20 meq PO Q48H
dapagliflozin propanediol 10 mg Tablet
10 mg PO DAILY Qty: 90 0RF
acetaminophen 325 mg Tablet
650 mg PO Q4HPRN PRN (Reason: mild pain)
cyanocobalamin (vitamin B-12) 1,000 mcg Tablet
1,000 mcg PO DAILY
aspirin 81 mg Tablet,Delayed Release (Dr/Ec)
81 mg PO DAILY
fluticasone propionate 50 mcg/actuation [place],Suspension
1 spray INTRANASAL HS
Saccharomyces boulardii [Probiotic (S.boulardii)] 250 mg Capsule
250 mg PO BID
Patient Comments:
07/25/24: to take for 9 days, starting 07/23/24
cholecalciferol (vitamin D3) 1,250 mcg (50,000 unit) Capsule
1,250 mcg PO QMONTH
nifedipine 30 mg tablet extended release
30 mg PO BIDPRN PRN (Reason: if SBP>140 for 3 days)
Discontinued
clopidogrel [Plavix] 75 mg Tablet
75 mg PO DAILY
cephalexin 500 mg Capsule
500 mg PO BID
Patient Comments:
07/25/24: to take for 7 days, starting 07/22/24
Discharge Orders:
Discharge Patient (As Directed); Ordered 07/29/24
Ordered By: Latesha Bills
Discharge Date and Time
Print Language: SETSWANA
[2024-07-29 15:22] VITALS: BP 108/44
== END 2024-07-29 17:29 | disposition home or self-care (01) | DRG 300 ==
LOC: 4 EAST ACU 10:29
PROVIDERS: Registered Nurse; ADMITTING PHYSICIAN Internal Medicine; ATTENDING PHYSICIAN Student in an Organized Health Care Education/Training Program; EMERGENCY PHYSICIAN Student in an Organized Health Care Education/Training Program; FAMILY PHYSICIAN Family Medicine; OTHER PHYSICIAN Internal Medicine Hematology & Oncology; OTHER PHYSICIAN Internal Medicine Infectious Disease
DX: I82.412 Acute embolism and thrombosis of left femoral vein (principal); I13.0 Hypertensive heart and chronic kidney disease with heart failure and stage 1 through stage 4 chronic kidney disease, or unspecified chronic kidney disease; I50.32 Chronic diastolic (congestive) heart failure; N18.4 Chronic kidney disease, stage 4 (severe); I25.10 Atherosclerotic heart disease of native coronary artery without angina pectoris; G47.33 Obstructive sleep apnea (adult) (pediatric); E78.00 Pure hypercholesterolemia, unspecified; E11.22 Type 2 diabetes mellitus with diabetic chronic kidney disease; I65.29 Occlusion and stenosis of unspecified carotid artery; E11.51 Type 2 diabetes mellitus with diabetic peripheral angiopathy without gangrene; I87.2 Venous insufficiency (chronic) (peripheral); K59.00 Constipation, unspecified; N40.0 Benign prostatic hyperplasia without lower urinary tract symptoms; I49.5 Sick sinus syndrome; Z79.85 Long-term (current) use of injectable non-insulin antidiabetic drugs; Z79.82 Long term (current) use of aspirin; Z79.02 Long term (current) use of antithrombotics/antiplatelets; Z79.84 Long term (current) use of oral hypoglycemic drugs; Z79.899 Other long term (current) drug therapy; Z87.891 Personal history of nicotine dependence; Z95.0 Presence of cardiac pacemaker; Z95.1 Presence of aortocoronary bypass graft; Z95.820 Peripheral vascular angioplasty status with implants and grafts
CPT/HCPCS: 80048; 80053; 80202; 82728; 82962; 83540; 83550; 83735; 85018; 85025; 85027; 85045; 85610; 85730; 87070; 93971; 97116; 97162; 97166; 97530; 99285

== ENCOUNTER → 2024-09-30 08:10 | Outpatient (REF) | payer OTHER, SELFPAY | LOC: RCS 08:10 | PROVIDERS: ATTENDING PHYSICIAN Nuclear Medicine Nuclear Cardiology; FAMILY PHYSICIAN Family Medicine | DX: I10 Essential (primary) hypertension (principal) | CPT/HCPCS: 93306 ==

== ENCOUNTER → 2024-11-25 07:32 | Outpatient (REF) | payer OTHER, SELFPAY | LOC: RAD 07:32 | PROVIDERS: ATTENDING PHYSICIAN Physician Assistant; FAMILY PHYSICIAN Family Medicine | DX: I73.9 Peripheral vascular disease, unspecified (principal) | CPT/HCPCS: 93922; 93925 ==

== ENCOUNTER → 2025-05-12 07:21 | Outpatient (REF) | payer OTHER, SELFPAY | LOC: RAD 07:21 | PROVIDERS: ATTENDING PHYSICIAN Surgery Vascular Surgery; FAMILY PHYSICIAN Family Medicine | DX: I65.23 Occlusion and stenosis of bilateral carotid arteries (principal); I73.9 Peripheral vascular disease, unspecified | CPT/HCPCS: 93880; 93922; 93925; 93978 ==